=== PATIENT | female | born 1955 | race Caucasian/White ===

== ENCOUNTER 2019-04-08 09:14 | Inpatient (IN) | payer MEDICAID ==
[~2019-04-08] VITALS: Ht 167.6 cm; Wt 98.0 kg
[2019-04-08] VITALS (14 sets, daily range): BP systolic 67–158
[2019-04-08] MEDS ORDERED: cefTRIAXone 1 GM IVPB PREMIX 50 ML IV ONE (09:30)
[2019-04-08 10:07] LABS: BASOPHILS # (AUTO) 0.1 K/uL (0.0-0.2); BASOPHILS % (AUTO) 1.1 % (0.0-2.0); EOSINOPHILS # (AUTO) 0.3 K/uL (0.0-0.4); EOSINOPHILS % (AUTO) 4.3 % (0.0-4.0); HEMATOCRIT 31.1 % (36-48); LYMPHOCYTES # (AUTO) 2.1 K/uL (1.0-5.5); LYMPHOCYTES % (AUTO) 30.1 % (20.5-51.5); MEAN CORPUSCULAR HEMOGLOBIN 29 pg (27-31); MEAN CORPUSCULAR HGB CONC 32 % (32-36); MEAN CORPUSCULAR VOLUME 90 fL (79.0-98.0); MONOCYTES # (AUTO) 0.6 K/uL (0.0-1.0); MONOCYTES % (AUTO) 9.1 % (1.7-9.3); NEUTROPHILS # (AUTO) 3.8 K/uL (1.8-7.7); NEUTROPHILS % (AUTO) 55.4 % (40.0-70.0); PLATELET COUNT (AUTO) 142 K/uL (130-430); RED BLOOD CELL COUNT(AUTO) 3.46 MIL/uL (4.2-6.2); RED CELL DISTRIBUTION WIDTH 18.5 % (9.0-15.0); WHITE BLOOD COUNT (AUTO) 6.9 K/uL (4.8-10.8)
[2019-04-08 10:26] LABS: INR 1.1 (0.8-1.2); PROTHROMBIN TIME 11.3 SECS (9.5-12.5)
[2019-04-08 10:28] LABS: ALANINE AMINOTRANSFERASE 57 U/L (12-78); ALBUMIN 2.5 g/dL (3.4-4.8); AMYLASE 51 U/L (0-100); ANION GAP 4 (5-15); ASPARTATE AMINOTRANSFERASE 45 U/L (10-37); CALCIUM 8.4 mg/dL (8.4-11.0); CHLORIDE 107 mmol/L (98-107); GLUCOSE 190 mg/dL (70-99); LIPASE 127 U/L (73-393); SODIUM SERUM 136 mmol/L (136-145); TOTAL BILIRUBIN 0.4 mg/dL (0.0-1.0)
[2019-04-08 10:41] LABS: UREA NITROGEN, BLOOD 47 mg/dL (8-21)
[2019-04-08 10:44] LABS: GFR AFRICAN AMERICAN 36 mL/min (>90)
[2019-04-08 10:45] LABS: ALCOHOL, BLOOD < 3 mg/dL (<10)
[2019-04-08 10:46] LABS: POTASSIUM 7.2 mmol/L (3.5-5.1)
[2019-04-08 10:53] LABS: ACETAMINOPHEN < 1 ug/mL (1-30)
[2019-04-08] MEDS ORDERED: NACL 0.9% 1,000 ML IV ONE ×2 (11:30→13:00)
[2019-04-08 11:38] LABS: BILIRUBIN,URINE NEGATIVE (NEGATIVE); CLARITY/URINE CLEAR (CLEAR); COLOR,URINE YELLOW (YELLOW); GLUCOSE,URINE TRACE (NEGATIVE); KETONES,URINE NEGATIVE (NEGATIVE); LEUKOCYTE ESTERASE ,URINE NEGATIVE (NEGATIVE); NITRITE, URINE NEGATIVE (NEGATIVE); PH,URINE 6.5 (5.0-8.0); PROTEIN URINE TRACE (NEGATIVE); UROBILINOGEN,URINE 0.2 (0.2-1.0)
[2019-04-08 11:47] LABS: BARBITURATE, URINE NEGATIVE (NEG <=200); BENZODIAZEPINE, URINE NEGATIVE (NEG <=150); CANNABINOID, URINE POSITIVE (NEG <=50); COCAINE, URINE NEGATIVE (NEG <=150); METHAMPHETAMINES SCREEN,URINE NEGATIVE (NEG <=500); OPIATE, URINE NEGATIVE (NEG <=100); PHENCYCLIDINE SCREEN,URINE NEGATIVE (NEG <=25); UR TRICYCLIC ANTIDEPRESSANTS NEGATIVE (NEG <=300); URINE AMPHETAMINE NEGATIVE (NEG <=500); URINE METHADONE NEGATIVE (NEG <=200); URINE OXYCODONE SCREEN NEGATIVE (NEG <=100); URINE PROPOXYPHENE SCREEN NEGATIVE (NEG <=300)
[2019-04-08 11:59] LABS: BLOOD, URINE TRACE (NEGATIVE)
[2019-04-08] MEDS ORDERED: LACTULOSE 20 GM/30 ML UDC PO ONE (12:00)
[2019-04-08 13:07] LABS: BACTERIA,URINE RARE /HPF (None Seen); MUCUS,URINE 1+ /LPF (None Seen); RBC,URINE 0-3 /HPF (0-3); WBC,URINE 0-3 /HPF (0-3)
[2019-04-08] MEDS ORDERED: LACT10SO6 PO (13:18)
[2019-04-08] MEDS ORDERED: RIFA550T5 PO (13:18)
[2019-04-08] MEDS ORDERED: BISA10SU61 RC (13:18)
[2019-04-08] MEDS ORDERED: SODI650T PO (13:18)
[2019-04-08] MEDS ORDERED: ACET325T53 PO (13:18)
[2019-04-08] MEDS ORDERED: MULT-1089 PO (13:18)
[2019-04-08] MEDS ORDERED: SENN8.6T19 PO (13:18)
[2019-04-08] MEDS ORDERED: DEXT30DR6 EACH EYE (13:18)
[2019-04-08] MEDS ORDERED: SSNOVOLOG SUBCUT (13:18)
[2019-04-08] MEDS ORDERED: ASCO500T20 PO (13:18)
[2019-04-08] MEDS ORDERED: PROSTAT PO (13:18)
[2019-04-08] MEDS ORDERED: HYDR-4272 PO (13:18)
[2019-04-08] MEDS ORDERED: ONDA4TAB5 PO (13:18)
[2019-04-08] MEDS ORDERED: LEVO112T2 PO (13:18)
[2019-04-08] MEDS ORDERED: METO-290 PO (13:18)
[2019-04-08] MEDS ORDERED: MOM PO (13:18)
[2019-04-08] MEDS ORDERED: FLEETMO RC (13:18)
[2019-04-08] MEDS ORDERED: NIAC500T2 PO (13:18)
[2019-04-08] MEDS ORDERED: HYDR-4274 PO (13:18)
[2019-04-08] MEDS ORDERED: FAMO20TA8 PO (13:18)
[2019-04-08] MEDS ORDERED: IPRA4AER INH (13:18)
[2019-04-08] MEDS ORDERED: GABA800T PO (13:18)
[2019-04-08] MEDS ORDERED: DOCU-144 PO (13:18)
[2019-04-08] MEDS ORDERED: NOREPINEPHRINE BITARTRATE 4 MG in D5W 246 ML IV PRN (13:30)
[2019-04-08] MEDS ORDERED: NOREPINEPHRINE 4 MG/4 ML VIAL IV ONE (13:39)
[2019-04-08] MEDS ORDERED: BISACODYL 10 MG/SUPPOSITORY RC PRN (14:45)
[2019-04-08] MEDS ORDERED: MINERAL OIL 133 ML ENEMA RC SCH (14:45)
[2019-04-08] MEDS ORDERED: ONDANSETRON HCL 4 MG/2 ML VIAL IVP PRN (15:00)
[2019-04-08] MEDS ORDERED: ALBUTEROL SULFATE 0.083% 2.5 MG/3 ML VIAL.NEB INH PRN (15:00)
[2019-04-08] MEDS ORDERED: SODIUM POLYSTYRENE SULFONATE 15 GM/60 ML UDBTL RC ONE (15:00)
[2019-04-08] MEDS ORDERED: MORPHINE 4 MG/ML INJ. SYRINGE IVP PRN (15:00)
[2019-04-08] MEDS ORDERED: MORPHINE 2 MG/ML INJ. SYRINGE IVP PRN (15:00)
[2019-04-08 16:43] LABS: CALCIUM 8.2 mg/dL (8.4-11.0); CREATININE 1.58 mg/dL (0.55-1.30)
[2019-04-08 16:55] LABS: POTASSIUM 6.3 mmol/L (3.5-5.1)
[2019-04-08] MEDS: D5/0.45 NS 1,000 ML IV SCH (17:03)
[2019-04-08] MEDS: LORazepam 2 MG/ML VIAL IVP PRN (17:03)
[2019-04-08] MEDS: INSULIN REGULAR, HUMAN 100 UNITS/ML, 10 ML VIAL (humuLIN R) SUBCUT PRN (17:50)
[2019-04-08] MEDS: IPRATROPIUM BROM 0.5 MG/2.5 ML VIAL.NEB (ATROVENT) INH SCH ×2 (19:40→23:10)
[2019-04-08] MEDS: FAMOTIDINE PF 20 MG/2 ML VIAL IVP SCH (20:53)
[2019-04-08] MEDS ORDERED: FUROSEMIDE 20 MG/2 ML VIAL IVP SCH (21:00)
[2019-04-09] VITALS (15 sets, daily range): BP systolic 92–153
[2019-04-09] MEDS: D5/0.45 NS 1,000 ML IV SCH ×2 (00:48→23:21)
[2019-04-09] MEDS: INSULIN REGULAR, HUMAN 100 UNITS/ML, 10 ML VIAL (humuLIN R) SUBCUT PRN ×5 (00:51→23:19)
[2019-04-09] MEDS: IPRATROPIUM BROM 0.5 MG/2.5 ML VIAL.NEB (ATROVENT) INH SCH ×6 (02:50→23:00)
[2019-04-09 06:34] LABS: BASOPHILS % (AUTO) 0.6 % (0.0-2.0); EOSINOPHILS # (AUTO) 0.3 K/uL (0.0-0.4); EOSINOPHILS % (AUTO) 5.8 % (0.0-4.0); HEMATOCRIT 28.3 % (36-48); HEMOGLOBIN 9.4 g/dL (12.0-16.0); LYMPHOCYTES # (AUTO) 1.1 K/uL (1.0-5.5); LYMPHOCYTES % (AUTO) 21.1 % (20.5-51.5); MEAN CORPUSCULAR HEMOGLOBIN 30 pg (27-31); MEAN CORPUSCULAR HGB CONC 33 % (32-36); MEAN CORPUSCULAR VOLUME 90 fL (79.0-98.0); MONOCYTES # (AUTO) 0.4 K/uL (0.0-1.0); MONOCYTES % (AUTO) 7.9 % (1.7-9.3); NEUTROPHILS # (AUTO) 3.4 K/uL (1.8-7.7); NEUTROPHILS % (AUTO) 64.6 % (40.0-70.0); PLATELET COUNT (AUTO) 118 K/uL (130-430); RED BLOOD CELL COUNT(AUTO) 3.16 MIL/uL (4.2-6.2); RED CELL DISTRIBUTION WIDTH 18.3 % (9.0-15.0); WHITE BLOOD COUNT (AUTO) 5.3 K/uL (4.8-10.8)
[2019-04-09 06:47] LABS: ALBUMIN 2.6 g/dL (3.4-4.8); CREATININE 1.22 mg/dL (0.55-1.30); PHOSPHORUS 4.9 mg/dL (2.7-4.5); POTASSIUM 5.1 mmol/L (3.5-5.1); TOTAL BILIRUBIN 0.5 mg/dL (0.0-1.0)
[2019-04-09] MEDS: FAMOTIDINE PF 20 MG/2 ML VIAL IVP SCH ×2 (08:32→20:02)
[2019-04-09] MEDS: LACTULOSE 20 GM/30 ML UDC PO SCH ×2 (09:10→20:02)
[2019-04-09] MEDS: cefTRIAXone 1 GM IVPB PREMIX 50 ML IV SCH (09:10)
[2019-04-10 01:46] VITALS: BP_SYST 158
[2019-04-10] MEDS: IPRATROPIUM BROM 0.5 MG/2.5 ML VIAL.NEB (ATROVENT) INH SCH ×4 (03:00→16:36)
[2019-04-10] MEDS: LORazepam 2 MG/ML VIAL IVP PRN ×2 (04:51→12:09)
[2019-04-10] MEDS: D5/0.45 NS 1,000 ML IV SCH ×2 (05:15→18:22)
[2019-04-10 05:40] VITALS: BP_SYST 138
[2019-04-10] MEDS: INSULIN REGULAR, HUMAN 100 UNITS/ML, 10 ML VIAL (humuLIN R) SUBCUT PRN ×4 (05:43→23:32)
[2019-04-10 06:26] LABS: BASOPHILS % (AUTO) 0.5 % (0.0-2.0); EOSINOPHILS # (AUTO) 0.3 K/uL (0.0-0.4); EOSINOPHILS % (AUTO) 5.7 % (0.0-4.0); HEMATOCRIT 29.1 % (36-48); HEMOGLOBIN 9.5 g/dL (12.0-16.0); LYMPHOCYTES # (AUTO) 1.2 K/uL (1.0-5.5); LYMPHOCYTES % (AUTO) 21.1 % (20.5-51.5); MEAN CORPUSCULAR HEMOGLOBIN 29 pg (27-31); MEAN CORPUSCULAR HGB CONC 33 % (32-36); MEAN CORPUSCULAR VOLUME 89 fL (79.0-98.0); MONOCYTES # (AUTO) 0.4 K/uL (0.0-1.0); MONOCYTES % (AUTO) 7.4 % (1.7-9.3); NEUTROPHILS # (AUTO) 3.8 K/uL (1.8-7.7); NEUTROPHILS % (AUTO) 65.3 % (40.0-70.0); PLATELET COUNT (AUTO) 113 K/uL (130-430); RED BLOOD CELL COUNT(AUTO) 3.29 MIL/uL (4.2-6.2); RED CELL DISTRIBUTION WIDTH 18.4 % (9.0-15.0); WHITE BLOOD COUNT (AUTO) 5.8 K/uL (4.8-10.8)
[2019-04-10 06:31] LABS: CALCIUM 8.2 mg/dL (8.4-11.0); CREATININE 1.2 mg/dL (0.55-1.30); POTASSIUM 4.7 mmol/L (3.5-5.1)
[2019-04-10 07:11] LABS: PHOSPHORUS 2.8 mg/dL (2.7-4.5)
[2019-04-10 07:35] LABS: ERYTHROCYTE SEDIMENTATION RATE 79 MM/HR (0-20)
[2019-04-10] MEDS: FAMOTIDINE PF 20 MG/2 ML VIAL IVP SCH ×2 (09:58→21:02)
[2019-04-10] MEDS: LACTULOSE 20 GM/30 ML UDC PO SCH ×2 (09:58→21:02)
[2019-04-10] MEDS: cefTRIAXone 1 GM IVPB PREMIX 50 ML IV SCH (09:58)
[2019-04-10 12:24] VITALS: BP_SYST 129
[2019-04-10 16:54] VITALS: BP_SYST 119
[2019-04-10] MEDS: IPRATROPIUM/ALBUTEROL SULFATE 3 ML AMPUL.NEB (DUONEB) INH SCH (20:58)
[2019-04-10 21:00] VITALS: BP_SYST 143
[2019-04-11 00:18] VITALS: BP_SYST 147
[2019-04-11] MEDS: IPRATROPIUM/ALBUTEROL SULFATE 3 ML AMPUL.NEB (DUONEB) INH SCH ×6 (02:57→20:48)
[2019-04-11] MEDS: INSULIN REGULAR, HUMAN 100 UNITS/ML, 10 ML VIAL (humuLIN R) SUBCUT PRN ×4 (05:18→23:35)
[2019-04-11 08:00] VITALS: BP_SYST 133
[2019-04-11] MEDS: cefTRIAXone 1 GM IVPB PREMIX 50 ML IV SCH (08:41)
[2019-04-11] MEDS: FAMOTIDINE PF 20 MG/2 ML VIAL IVP SCH ×2 (08:41→20:54)
[2019-04-11] MEDS: LACTULOSE 20 GM/30 ML UDC PO SCH ×3 (08:42→20:54)
[2019-04-11 09:29] LABS: BASOPHILS % (AUTO) 0.8 % (0.0-2.0); EOSINOPHILS # (AUTO) 0.3 K/uL (0.0-0.4); EOSINOPHILS % (AUTO) 5.7 % (0.0-4.0); HEMATOCRIT 30.2 % (36-48); HEMOGLOBIN 9.8 g/dL (12.0-16.0); LYMPHOCYTES # (AUTO) 1.4 K/uL (1.0-5.5); LYMPHOCYTES % (AUTO) 29.7 % (20.5-51.5); MEAN CORPUSCULAR HEMOGLOBIN 29 pg (27-31); MEAN CORPUSCULAR HGB CONC 33 % (32-36); MEAN CORPUSCULAR VOLUME 88 fL (79.0-98.0); MONOCYTES # (AUTO) 0.4 K/uL (0.0-1.0); MONOCYTES % (AUTO) 9.1 % (1.7-9.3); NEUTROPHILS # (AUTO) 2.6 K/uL (1.8-7.7); NEUTROPHILS % (AUTO) 54.7 % (40.0-70.0); PLATELET COUNT (AUTO) 118 K/uL (130-430); RED BLOOD CELL COUNT(AUTO) 3.44 MIL/uL (4.2-6.2); RED CELL DISTRIBUTION WIDTH 18.5 % (9.0-15.0); WHITE BLOOD COUNT (AUTO) 4.8 K/uL (4.8-10.8)
[2019-04-11 09:43] LABS: C-REACTIVE PROTEIN QUANT 2.5 mg/dL (0-0.5); CALCIUM 8.4 mg/dL (8.4-11.0); CREATININE 0.86 mg/dL (0.55-1.30); PHOSPHORUS 3.5 mg/dL (2.7-4.5); POTASSIUM 4.3 mmol/L (3.5-5.1)
[2019-04-11 10:31] LABS: ERYTHROCYTE SEDIMENTATION RATE 80 MM/HR (0-20)
[2019-04-11 12:40] VITALS: BP_SYST 147
[2019-04-11 16:23] VITALS: BP_SYST 132
[2019-04-11 20:00] VITALS: BP_SYST 151
[2019-04-11] MEDS: D5/0.45 NS 1,000 ML IV SCH (21:15)
[2019-04-12 00:20] VITALS: BP_SYST 150
[2019-04-12] MEDS: IPRATROPIUM/ALBUTEROL SULFATE 3 ML AMPUL.NEB (DUONEB) INH SCH ×6 (00:22→23:14)
[2019-04-12] MEDS: INSULIN REGULAR, HUMAN 100 UNITS/ML, 10 ML VIAL (humuLIN R) SUBCUT PRN ×3 (06:08→17:29)
[2019-04-12 08:05] VITALS: BP_SYST 127
[2019-04-12] MEDS: LACTULOSE 20 GM/30 ML UDC PO SCH ×2 (08:30→21:00)
[2019-04-12] MEDS: FAMOTIDINE PF 20 MG/2 ML VIAL IVP SCH ×2 (08:30→21:22)
[2019-04-12] MEDS: cefTRIAXone 1 GM IVPB PREMIX 50 ML IV SCH (08:30)
[2019-04-12] MEDS ORDERED: D5W 1,000 ML IV PRN (11:15)
[2019-04-12] MEDS ORDERED: GLUCOSE 15 GM GEL (in 37.5 GM TUBE) PO PRN (11:15)
[2019-04-12] MEDS ORDERED: DEXTROSE 50%-WATER 50 ML DISP.SYRIN IVP PRN (11:15)
[2019-04-12 12:37] VITALS: BP_SYST 143
[2019-04-12 16:35] VITALS: BP_SYST 138
[2019-04-12] MEDS: D5/0.45 NS 1,000 ML IV SCH (17:15)
[2019-04-12 20:00] VITALS: BP_SYST 144
[2019-04-12 23:25] VITALS: BP_SYST 125
[2019-04-13] MEDS: INSULIN REGULAR, HUMAN 100 UNITS/ML, 10 ML VIAL (humuLIN R) SUBCUT PRN ×3 (00:05→12:17)
[2019-04-13] MEDS: IPRATROPIUM/ALBUTEROL SULFATE 3 ML AMPUL.NEB (DUONEB) INH SCH ×3 (03:00→11:00)
[2019-04-13 06:47] LABS: BASOPHILS % (AUTO) 0.6 % (0.0-2.0); EOSINOPHILS # (AUTO) 0.3 K/uL (0.0-0.4); EOSINOPHILS % (AUTO) 5.7 % (0.0-4.0); HEMATOCRIT 29.7 % (36-48); HEMOGLOBIN 9.7 g/dL (12.0-16.0); LYMPHOCYTES # (AUTO) 1.7 K/uL (1.0-5.5); LYMPHOCYTES % (AUTO) 32.5 % (20.5-51.5); MEAN CORPUSCULAR HEMOGLOBIN 29 pg (27-31); MEAN CORPUSCULAR HGB CONC 33 % (32-36); MEAN CORPUSCULAR VOLUME 88 fL (79.0-98.0); MONOCYTES # (AUTO) 0.6 K/uL (0.0-1.0); MONOCYTES % (AUTO) 11.5 % (1.7-9.3); NEUTROPHILS # (AUTO) 2.6 K/uL (1.8-7.7); NEUTROPHILS % (AUTO) 49.7 % (40.0-70.0); PLATELET COUNT (AUTO) 120 K/uL (130-430); RED BLOOD CELL COUNT(AUTO) 3.39 MIL/uL (4.2-6.2); WHITE BLOOD COUNT (AUTO) 5.2 K/uL (4.8-10.8)
[2019-04-13 07:02] LABS: ALBUMIN 2.6 g/dL (3.4-4.8); CALCIUM 8.2 mg/dL (8.4-11.0); CREATININE 0.93 mg/dL (0.55-1.30); TOTAL BILIRUBIN 0.4 mg/dL (0.0-1.0)
[2019-04-13 08:10] VITALS: BP_SYST 141
[2019-04-13] MEDS: cefTRIAXone 1 GM IVPB PREMIX 50 ML IV SCH (08:25)
[2019-04-13] MEDS: FAMOTIDINE PF 20 MG/2 ML VIAL IVP SCH (08:25)
[2019-04-13] MEDS: LACTULOSE 20 GM/30 ML UDC PO SCH (08:25)
[2019-04-13 11:56] VITALS: BP_SYST 110
== END 2019-04-13 14:00 | DRG 279 ==
LOC: SED 09:14 → SIC 12:57 → STU 04-09 11:23
PROVIDERS: ADMIT Preventive Medicine Preventive Medicine/Occupational Environmental Medicine; ATTEND Preventive Medicine Preventive Medicine/Occupational Environmental Medicine
DX: K72.90 Hepatic failure, unspecified without coma (principal); J96.01 Acute respiratory failure with hypoxia; G93.41 Metabolic encephalopathy; E11.21 Type 2 diabetes mellitus with diabetic nephropathy; N17.9 Acute kidney failure, unspecified; D69.6 Thrombocytopenia, unspecified; E11.22 Type 2 diabetes mellitus with diabetic chronic kidney disease; E11.65 Type 2 diabetes mellitus with hyperglycemia; E87.2 Acidosis; E86.0 Dehydration; D64.9 Anemia, unspecified; E03.9 Hypothyroidism, unspecified; J98.11 Atelectasis; K70.30 Alcoholic cirrhosis of liver without ascites; E83.52 Hypercalcemia; E87.1 Hypo-osmolality and hyponatremia; E87.5 Hyperkalemia; E88.09 Other disorders of plasma-protein metabolism, not elsewhere classified; M19.90 Unspecified osteoarthritis, unspecified site; F10.10 Alcohol abuse, uncomplicated; E66.01 Morbid (severe) obesity due to excess calories; I12.9 Hypertensive chronic kidney disease with stage 1 through stage 4 chronic kidney disease, or unspecified chronic kidney disease; N18.9 Chronic kidney disease, unspecified; Z66 Do not resuscitate; Z82.49 Family history of ischemic heart disease and other diseases of the circulatory system; Z83.3 Family history of diabetes mellitus; Z85.038 Personal history of other malignant neoplasm of large intestine; Z85.05 Personal history of malignant neoplasm of liver; Z90.49 Acquired absence of other specified parts of digestive tract; Z68.34 Body mass index [BMI] 34.0-34.9, adult; Z79.899 Other long term (current) drug therapy
CPT/HCPCS: 36415; 36600; 70450-TC; 71045; 80048; 80053; 80307; 81000-TC; 82140-TC; 82150-TC; 82550-TC; 82803-TC; 82962; 83605; 83690-TC; 83735-TC; 83880; 84100-TC; 84484; 85025; 85610-TC; 85651-TC; 85730-TC; 86140; 87040-TC; 87081; 93005; 94640; 94760; 96365; 96367; 97110-GP; 97112-GP; 97530-GP; 99291; 99292; G0378; G0480; G0481; G0482; J0696; J1815; J1940; J2060; J2270; J3490; J7030; J7613; J7620

== ENCOUNTER 2019-08-03 21:23 | Inpatient (IN) | payer MEDICAID, SELFPAY ==
[~2019-08-03] VITALS: Ht 157.5 cm; Wt 89.8 kg
[~2019-08-03 21:23] MED LIST: ACET325T53 PO; ASCO500T20 PO; BISA10SU61 RC; DEXT30DR6 EACH EYE; DOCU-144 PO; FAMO20TA8 PO; FLEETMO RC; GABA800T PO; HYDR-4272 PO; HYDR-4274 PO; IPRA4AER INH; LACT10SO6 PO; LEVO112T2 PO; METO-290 PO; MOM PO; MULT-1089 PO; NIAC500T2 PO; ONDA4TAB5 PO; PROSTAT PO; RIFA550T5 PO; SENN8.6T19 PO; SODI650T PO; SSNOVOLOG SUBCUT
[2019-08-03 21:30] VITALS: BP_SYST 151
[2019-08-03] MEDS ORDERED: ACETAMINOPHEN 650 MG SUPP.RECT RC ONE (21:30)
[2019-08-03 22:30] LABS: BILIRUBIN,URINE NEGATIVE (NEGATIVE); BLOOD, URINE 2+ (NEGATIVE); CLARITY/URINE CLEAR (CLEAR); COLOR,URINE YELLOW (YELLOW); GLUCOSE,URINE NEGATIVE (NEGATIVE); KETONES,URINE NEGATIVE (NEGATIVE); LEUKOCYTE ESTERASE ,URINE 3+ (NEGATIVE); NITRITE, URINE POSITIVE (NEGATIVE); PROTEIN URINE 1+ (NEGATIVE); UROBILINOGEN,URINE 0.2 (0.2-1.0)
[2019-08-03 22:35] LABS: BACTERIA,URINE MANY /HPF (None Seen); MUCUS,URINE 1+ /LPF (None Seen); RBC,URINE 20-50 /HPF (0-3); WBC,URINE >100 /HPF (0-3)
[2019-08-03 22:41] LABS: BASOPHILS % (AUTO) 0.3 % (0.0-2.0); EOSINOPHILS # (AUTO) 0.1 K/uL (0.0-0.4); EOSINOPHILS % (AUTO) 2.3 % (0.0-4.0); HEMATOCRIT 29.4 % (36-48); HEMOGLOBIN 9.4 g/dL (12.0-16.0); LYMPHOCYTES # (AUTO) 0.4 K/uL (1.0-5.5); LYMPHOCYTES % (AUTO) 7.5 % (20.5-51.5); MEAN CORPUSCULAR HEMOGLOBIN 28 pg (27-31); MEAN CORPUSCULAR HGB CONC 32 % (32-36); MEAN CORPUSCULAR VOLUME 87 fL (79.0-98.0); MONOCYTES # (AUTO) 0.5 K/uL (0.0-1.0); MONOCYTES % (AUTO) 9.7 % (1.7-9.3); NEUTROPHILS # (AUTO) 4.3 K/uL (1.8-7.7); NEUTROPHILS % (AUTO) 80.2 % (40.0-70.0); PLATELET COUNT (AUTO) 105 K/uL (130-430); RED BLOOD CELL COUNT(AUTO) 3.39 MIL/uL (4.2-6.2); RED CELL DISTRIBUTION WIDTH 18.1 % (9.0-15.0); WHITE BLOOD COUNT (AUTO) 5.4 K/uL (4.8-10.8)
[2019-08-03 22:49] LABS: CALCIUM 8.3 mg/dL (8.4-11.0); CREATININE 1.44 mg/dL (0.55-1.30); POTASSIUM 5.6 mmol/L (3.5-5.1)
[2019-08-03 22:55] LABS: ALBUMIN 2.7 g/dL (3.4-4.8); TOTAL BILIRUBIN 0.5 mg/dL (0.0-1.0)
[2019-08-03] MEDS ORDERED: cefTRIAXone 1 GM IVPB PREMIX 50 ML IV ONE (23:00)
[2019-08-03 23:14] LABS: INR 1.2 (0.8-1.2); PROTHROMBIN TIME 12.3 SECS (9.5-12.5)
[2019-08-03] MEDS ORDERED: INSULIN REGULAR, HUMAN 10 UNITS/0.1 ML INJ IVP ONE (23:15)
[2019-08-03] MEDS ORDERED: NACL 0.9% 2,000 ML IV ONE (23:15)
[2019-08-04] MEDS ORDERED: LACTULOSE 20 GM/30 ML UDC NG ONE
[2019-08-04] MEDS ORDERED: ONDANSETRON HCL 4 MG/2 ML VIAL IVP ONE
[2019-08-04] MEDS ORDERED: LACT10SO7 PO (00:30)
[2019-08-04] MEDS ORDERED: IPRA4AER INH (00:30)
[2019-08-04] MEDS ORDERED: LEVO125T PO (00:30)
[2019-08-04] MEDS ORDERED: DIPH25CA83 PO (00:30)
[2019-08-04] MEDS ORDERED: INSU100V11 SQ (00:30)
[2019-08-04] MEDS ORDERED: MILK OF MAGNESIA 30 ML UDC PO PRN (01:15)
[2019-08-04] MEDS ORDERED: PEG 400/HYPROMELLOSE/GLYCERIN 15 ML DROPS OP PRN (01:15)
[2019-08-04] MEDS ORDERED: BISACODYL 10 MG/SUPPOSITORY RC PRN (01:15)
[2019-08-04 02:21] VITALS: BP_SYST 107
[2019-08-04] MEDS: LACTULOSE 20 GM/30 ML UDC PO SCH ×4 (02:30→21:31)
[2019-08-04] MEDS: NACL 0.9% 1,000 ML IV SCH ×3 (02:30→21:33)
[2019-08-04] MEDS: PIPERACILLIN/TAZO 3.375/DEX-IS 50 ML IV SCH ×4 (04:05→18:03)
[2019-08-04] MEDS ORDERED: PIPERACILLIN/TAZOBACTAM 3.375 GM/VIAL (ZOSYN) IV ONE (04:13)
[2019-08-04] MEDS ORDERED: AZITHROMYCIN 500 MG/VIAL (ZITHROMAX) IV ONE (04:13)
[2019-08-04] MEDS: ACETAMINOPHEN 325 MG TABLET PO PRN ×4 (04:23→16:35)
[2019-08-04] MEDS: AZITHROMYCIN 500 MG in NS 250 ML IV SCH (04:35)
[2019-08-04 06:23] LABS: BASOPHILS % (AUTO) 0.3 % (0.0-2.0); EOSINOPHILS % (AUTO) 0.8 % (0.0-4.0); HEMATOCRIT 22.9 % (36-48); HEMOGLOBIN 7.4 g/dL (12.0-16.0); LYMPHOCYTES # (AUTO) 0.7 K/uL (1.0-5.5); LYMPHOCYTES % (AUTO) 13.7 % (20.5-51.5); MEAN CORPUSCULAR HEMOGLOBIN 28 pg (27-31); MEAN CORPUSCULAR HGB CONC 32 % (32-36); MEAN CORPUSCULAR VOLUME 87 fL (79.0-98.0); MONOCYTES # (AUTO) 0.6 K/uL (0.0-1.0); MONOCYTES % (AUTO) 11.5 % (1.7-9.3); NEUTROPHILS # (AUTO) 3.9 K/uL (1.8-7.7); NEUTROPHILS % (AUTO) 73.7 % (40.0-70.0); PLATELET COUNT (AUTO) 88 K/uL (130-430); RED BLOOD CELL COUNT(AUTO) 2.63 MIL/uL (4.2-6.2); RED CELL DISTRIBUTION WIDTH 18.3 % (9.0-15.0); WHITE BLOOD COUNT (AUTO) 5.4 K/uL (4.8-10.8)
[2019-08-04] MEDS: LEVOTHYROXINE SODIUM 0.15 MG TABLET PO SCH (06:26)
[2019-08-04] MEDS: INSULIN REGULAR, HUMAN 100 UNITS/ML, 10 ML VIAL (humuLIN R) SUBCUT PRN ×4 (06:44→21:34)
[2019-08-04 06:57] LABS: ALBUMIN 2.2 g/dL (3.4-4.8); CALCIUM 7.1 mg/dL (8.4-11.0); CREATININE 1.46 mg/dL (0.55-1.30); POTASSIUM 5.1 mmol/L (3.5-5.1); TOTAL BILIRUBIN 0.5 mg/dL (0.0-1.0)
[2019-08-04 08:00] VITALS: BP_SYST 111
[2019-08-04] MEDS: DOCUSATE SODIUM 100 MG CAPSULE PO SCH (08:19)
[2019-08-04] MEDS: ASCORBIC ACID 500 MG TABLET PO SCH (08:19)
[2019-08-04] MEDS: NIACIN 500 MG CAPSULE.SA PO SCH ×2 (08:19→21:31)
[2019-08-04 12:00] VITALS: BP_SYST 92
[2019-08-04 16:00] VITALS: BP_SYST 103
[2019-08-04 20:00] VITALS: BP_SYST 117
[2019-08-04] MEDS ORDERED: VANCOMYCIN HCL 1 GM/NS PREMIX 250 ML IV ONE (23:00)
[2019-08-05] VITALS: BP_SYST 98
[2019-08-05] MEDS ORDERED: VANCOMYCIN HCL 1000 MG/VIAL IV ONE (00:31)
[2019-08-05] MEDS: PIPERACILLIN/TAZO 3.375/DEX-IS 50 ML IV SCH ×4 (00:52→18:10)
[2019-08-05] MEDS: AZITHROMYCIN 500 MG in NS 250 ML IV SCH (01:15)
[2019-08-05] MEDS: ACETAMINOPHEN 325 MG TABLET PO PRN (01:17)
[2019-08-05] MEDS: NACL 0.9% 1,000 ML IV SCH ×2 (06:38→18:10)
[2019-08-05] MEDS: LEVOTHYROXINE SODIUM 0.15 MG TABLET PO SCH (06:38)
[2019-08-05 08:00] VITALS: BP_SYST 98
[2019-08-05] MEDS: LACTULOSE 20 GM/30 ML UDC PO SCH ×3 (08:19→21:09)
[2019-08-05] MEDS: DOCUSATE SODIUM 100 MG CAPSULE PO SCH (08:19)
[2019-08-05] MEDS: ASCORBIC ACID 500 MG TABLET PO SCH (08:19)
[2019-08-05] MEDS: NIACIN 500 MG CAPSULE.SA PO SCH ×2 (08:22→21:09)
[2019-08-05 12:00] VITALS: BP_SYST 107
[2019-08-05] MEDS: INSULIN REGULAR, HUMAN 100 UNITS/ML, 10 ML VIAL (humuLIN R) SUBCUT PRN ×3 (12:47→21:59)
[2019-08-05] MEDS ORDERED: DEXTROSE 50%-WATER 50 ML DISP.SYRIN IVP PRN (15:45)
[2019-08-05] MEDS ORDERED: GLUCOSE 15 GM GEL (in 37.5 GM TUBE) PO PRN (15:45)
[2019-08-05] MEDS ORDERED: D5W 1,000 ML IV PRN (15:45)
[2019-08-05 16:00] VITALS: BP_SYST 103
[2019-08-05 20:30] VITALS: BP_SYST 131
[2019-08-06 00:30] VITALS: BP_SYST 116
[2019-08-06] MEDS: PIPERACILLIN/TAZO 3.375/DEX-IS 50 ML IV SCH ×5 (00:47→23:12)
[2019-08-06] MEDS: AZITHROMYCIN 500 MG in NS 250 ML IV SCH (00:51)
[2019-08-06] MEDS: NACL 0.9% 1,000 ML IV SCH ×3 (03:01→23:12)
[2019-08-06] MEDS: LEVOTHYROXINE SODIUM 0.15 MG TABLET PO SCH (06:17)
[2019-08-06] MEDS: INSULIN REGULAR, HUMAN 100 UNITS/ML, 10 ML VIAL (humuLIN R) SUBCUT PRN ×4 (06:30→21:25)
[2019-08-06 08:00] VITALS: BP_SYST 117
[2019-08-06] MEDS: LACTULOSE 20 GM/30 ML UDC PO SCH ×3 (09:36→21:09)
[2019-08-06] MEDS: DOCUSATE SODIUM 100 MG CAPSULE PO SCH (09:36)
[2019-08-06] MEDS: NIACIN 500 MG CAPSULE.SA PO SCH ×2 (09:36→21:00)
[2019-08-06] MEDS: ASCORBIC ACID 500 MG TABLET PO SCH (09:36)
[2019-08-06 12:00] VITALS: BP_SYST 122
[2019-08-06] MEDS ORDERED: HYDROXYCHLOROQUINE SULFATE 200 MG TABLET PO ONE (12:30)
[2019-08-06] MEDS ORDERED: IVERMECTIN 3 MG TABLET PO ONE (12:30)
[2019-08-06 16:00] VITALS: BP_SYST 116
[2019-08-06 20:00] VITALS: BP_SYST 126
[2019-08-06] MEDS: HYDROXYCHLOROQUINE SULFATE 200 MG TABLET PO SCH (23:11)
[2019-08-07] VITALS: BP_SYST 105
[2019-08-07] MEDS: ACETAMINOPHEN 325 MG TABLET PO PRN ×2 (00:27→11:30)
[2019-08-07] MEDS: PIPERACILLIN/TAZO 3.375/DEX-IS 50 ML IV SCH ×4 (05:49→19:40)
[2019-08-07] MEDS: LEVOTHYROXINE SODIUM 0.15 MG TABLET PO SCH (07:39)
[2019-08-07] MEDS: INSULIN REGULAR, HUMAN 100 UNITS/ML, 10 ML VIAL (humuLIN R) SUBCUT PRN ×4 (07:40→21:49)
[2019-08-07] MEDS: NIACIN 500 MG CAPSULE.SA PO SCH ×2 (08:09→21:40)
[2019-08-07] MEDS: NACL 0.9% 1,000 ML IV SCH ×2 (08:09→17:59)
[2019-08-07] MEDS: LACTULOSE 20 GM/30 ML UDC PO SCH ×3 (08:09→21:39)
[2019-08-07] MEDS: ASCORBIC ACID 500 MG TABLET PO SCH (08:09)
[2019-08-07] MEDS: DOCUSATE SODIUM 100 MG CAPSULE PO SCH (08:10)
[2019-08-07 08:39] VITALS: BP_SYST 129
[2019-08-07] MEDS: LORazepam 1 MG TABLET PO PRN (10:45)
[2019-08-07] MEDS: HYDROXYCHLOROQUINE SULFATE 200 MG TABLET PO SCH (11:25)
[2019-08-07 11:27] VITALS: BP_SYST 124
[2019-08-07 16:20] VITALS: BP_SYST 120
[2019-08-07] MEDS: CHOLECALCIFEROL (VITAMIN D3) 2,000 UNIT TABLET PO ONE ×2 (17:00→17:59)
[2019-08-07 21:09] VITALS: BP_SYST 154
[2019-08-08] MEDS: PIPERACILLIN/TAZO 3.375/DEX-IS 50 ML IV SCH ×3 (00:17→12:56)
[2019-08-08] MEDS: HYDROXYCHLOROQUINE SULFATE 200 MG TABLET PO SCH ×2 (00:17→12:56)
[2019-08-08 00:30] VITALS: BP_SYST 122
[2019-08-08] MEDS: LEVOTHYROXINE SODIUM 0.15 MG TABLET PO SCH (06:18)
[2019-08-08] MEDS: NACL 0.9% 1,000 ML IV SCH ×2 (06:18→15:01)
[2019-08-08] MEDS: ACETAMINOPHEN 325 MG TABLET PO PRN (06:20)
[2019-08-08] MEDS: INSULIN REGULAR, HUMAN 100 UNITS/ML, 10 ML VIAL (humuLIN R) SUBCUT PRN ×3 (06:39→17:09)
[2019-08-08 09:46] VITALS: BP_SYST 127
[2019-08-08] MEDS: NIACIN 500 MG CAPSULE.SA PO SCH ×2 (09:52→21:00)
[2019-08-08] MEDS: LACTULOSE 20 GM/30 ML UDC PO SCH ×3 (09:52→21:00)
[2019-08-08] MEDS: CHOLECALCIFEROL (VITAMIN D3) 2,000 UNIT TABLET PO SCH (09:52)
[2019-08-08] MEDS: ASCORBIC ACID 500 MG TABLET PO SCH (09:52)
[2019-08-08] MEDS: DOCUSATE SODIUM 100 MG CAPSULE PO SCH (09:52)
[2019-08-08 12:00] VITALS: BP_SYST 153
[2019-08-08 16:22] VITALS: BP_SYST 129
[2019-08-08 19:40] VITALS: BP_SYST 134
[2019-08-09 01:02] VITALS: BP_SYST 115
[2019-08-09] MEDS: NACL 0.9% 1,000 ML IV SCH ×3 (01:30→21:01)
[2019-08-09] MEDS: PIPERACILLIN/TAZO 3.375/DEX-IS 50 ML IV SCH ×5 (06:12→23:58)
[2019-08-09] MEDS: LEVOTHYROXINE SODIUM 0.15 MG TABLET PO SCH (06:12)
[2019-08-09] MEDS: INSULIN REGULAR, HUMAN 100 UNITS/ML, 10 ML VIAL (humuLIN R) SUBCUT PRN ×2 (06:14→12:43)
[2019-08-09 08:00] VITALS: BP_SYST 138
[2019-08-09] MEDS: DOCUSATE SODIUM 100 MG CAPSULE PO SCH (08:15)
[2019-08-09] MEDS: LACTULOSE 20 GM/30 ML UDC PO SCH ×3 (08:15→21:36)
[2019-08-09] MEDS: ASCORBIC ACID 500 MG TABLET PO SCH (08:15)
[2019-08-09] MEDS: NIACIN 500 MG CAPSULE.SA PO SCH ×2 (08:15→21:36)
[2019-08-09] MEDS: CHOLECALCIFEROL (VITAMIN D3) 2,000 UNIT TABLET PO SCH (08:16)
[2019-08-09 12:00] VITALS: BP_SYST 108
[2019-08-09] MEDS: HYDROXYCHLOROQUINE SULFATE 200 MG TABLET PO SCH ×3 (12:05→23:59)
[2019-08-09 16:29] LABS: HEMOGLOBIN 7.8 g/dL (12.0-16.0); MEAN CORPUSCULAR HGB CONC 32 % (32-36); RED BLOOD CELL COUNT(AUTO) 2.85 MIL/uL (4.2-6.2)
[2019-08-09 16:30] LABS: ALBUMIN 2.2 g/dL (3.4-4.8); CALCIUM 7.2 mg/dL (8.4-11.0); POTASSIUM 3.6 mmol/L (3.5-5.1); TOTAL BILIRUBIN 0.4 mg/dL (0.0-1.0)
[2019-08-09 16:36] LABS: HEMATOCRIT 24.4 % (36-48); MEAN CORPUSCULAR HEMOGLOBIN 27 pg (27-31); MEAN CORPUSCULAR VOLUME 86 fL (79.0-98.0); RED CELL DISTRIBUTION WIDTH 18.4 % (9.0-15.0)
[2019-08-09 16:39] LABS: WHITE BLOOD COUNT (AUTO) 2.6 K/uL (4.8-10.8)
[2019-08-09 16:50] LABS: PLATELET COUNT (AUTO) 85 K/uL (130-430)
[2019-08-09 16:52] LABS: BAND % (MANUAL) 1 % (0-6); BASOPHILS % (MANUAL) 0 % (0-2); EOSINOPHILS % (MANUAL) 3 % (0-7); LYMPHOCYTES % (MANUAL) 35 % (20-46); MONOCYTES % (MANUAL) 13 % (0-11)
[2019-08-09 18:18] VITALS: BP_SYST 110
[2019-08-09 20:00] VITALS: BP_SYST 126
[2019-08-09] MEDS: ACETAMINOPHEN 325 MG TABLET PO PRN (21:37)
[2019-08-10] VITALS: BP_SYST 130
[2019-08-10] MEDS: PIPERACILLIN/TAZO 3.375/DEX-IS 50 ML IV SCH (06:52)
[2019-08-10] MEDS: LEVOTHYROXINE SODIUM 0.15 MG TABLET PO SCH (06:52)
[2019-08-10 08:30] VITALS: BP_SYST 128
[2019-08-10] MEDS: LACTULOSE 20 GM/30 ML UDC PO SCH ×3 (08:41→21:00)
[2019-08-10] MEDS: DOCUSATE SODIUM 100 MG CAPSULE PO SCH (08:41)
[2019-08-10] MEDS: ASCORBIC ACID 500 MG TABLET PO SCH (08:41)
[2019-08-10] MEDS: CHOLECALCIFEROL (VITAMIN D3) 2,000 UNIT TABLET PO SCH (08:41)
[2019-08-10] MEDS: LORazepam 1 MG TABLET PO PRN (08:41)
[2019-08-10] MEDS: NIACIN 500 MG CAPSULE.SA PO SCH ×2 (08:41→21:00)
[2019-08-10] MEDS: ERTAPENEM SODIUM 0.5 GM in NS 50 ML IV SCH (11:00)
[2019-08-10 12:00] VITALS: BP_SYST 128
[2019-08-10] MEDS: HYDROXYCHLOROQUINE SULFATE 200 MG TABLET PO SCH (12:00)
[2019-08-10] MEDS: NACL 0.9% 1,000 ML IV SCH ×2 (14:00→17:01)
[2019-08-10 16:00] VITALS: BP_SYST 144
[2019-08-10 21:30] VITALS: BP_SYST 156
[2019-08-11 00:17] VITALS: BP_SYST 116
[2019-08-11] MEDS: NACL 0.9% 1,000 ML IV SCH ×3 (00:24→22:05)
[2019-08-11] MEDS: LEVOTHYROXINE SODIUM 0.15 MG TABLET PO SCH (06:51)
[2019-08-11 08:00] VITALS: BP_SYST 144
[2019-08-11] MEDS: NIACIN 500 MG CAPSULE.SA PO SCH ×2 (09:00→21:34)
[2019-08-11] MEDS: ASCORBIC ACID 500 MG TABLET PO SCH (09:00)
[2019-08-11] MEDS: DOCUSATE SODIUM 100 MG CAPSULE PO SCH (09:00)
[2019-08-11] MEDS: LACTULOSE 20 GM/30 ML UDC PO SCH ×3 (09:00→21:00)
[2019-08-11] MEDS: CHOLECALCIFEROL (VITAMIN D3) 2,000 UNIT TABLET PO SCH (09:00)
[2019-08-11] MEDS: ERTAPENEM SODIUM 0.5 GM in NS 50 ML IV SCH (10:37)
[2019-08-11 12:00] VITALS: BP_SYST 137
[2019-08-11] MEDS: HYDROXYCHLOROQUINE SULFATE 200 MG TABLET PO SCH ×3 (12:00→23:57)
[2019-08-11 13:38] LABS: C-REACTIVE PROTEIN QUANT 7.3 mg/dL (0-0.5)
[2019-08-11 16:00] VITALS: BP_SYST 140
[2019-08-11] MEDS: MENTHOL/ZINC OXIDE 113 GM OINT. TP PRN (18:27)
[2019-08-11] MEDS ORDERED: BALSAM PERU/CASTOR OIL 60 GM OINT...G. TP ONE (18:30)
[2019-08-11 21:35] VITALS: BP_SYST 149
[2019-08-12 00:06] VITALS: BP_SYST 127
[2019-08-12] MEDS: LEVOTHYROXINE SODIUM 0.15 MG TABLET PO SCH (06:26)
[2019-08-12 08:00] VITALS: BP_SYST 144
[2019-08-12] MEDS: LACTULOSE 20 GM/30 ML UDC PO SCH ×3 (09:00→20:44)
[2019-08-12] MEDS: NACL 0.9% 1,000 ML IV SCH ×2 (09:01→16:40)
[2019-08-12] MEDS: NIACIN 500 MG CAPSULE.SA PO SCH ×2 (09:27→20:45)
[2019-08-12] MEDS: DOCUSATE SODIUM 100 MG CAPSULE PO SCH (09:27)
[2019-08-12] MEDS: MENTHOL/ZINC OXIDE 113 GM OINT. TP PRN (09:28)
[2019-08-12] MEDS: BALSAM PERU/CASTOR OIL 60 GM OINT...G. TP SCH (09:28)
[2019-08-12] MEDS: ASCORBIC ACID 500 MG TABLET PO SCH (09:28)
[2019-08-12] MEDS: CHOLECALCIFEROL (VITAMIN D3) 2,000 UNIT TABLET PO SCH (09:28)
[2019-08-12] MEDS: ERTAPENEM SODIUM 0.5 GM in NS 50 ML IV SCH (11:00)
[2019-08-12 12:00] VITALS: BP_SYST 127
[2019-08-12] MEDS: HYDROXYCHLOROQUINE SULFATE 200 MG TABLET PO SCH (12:00)
[2019-08-12 16:00] VITALS: BP_SYST 134
[2019-08-12 20:00] VITALS: BP_SYST 122
[2019-08-13 00:30] VITALS: BP_SYST 144
[2019-08-13] MEDS: HYDROXYCHLOROQUINE SULFATE 200 MG TABLET PO SCH ×2 (00:40→12:00)
[2019-08-13] MEDS: NACL 0.9% 1,000 ML IV SCH ×2 (05:12→16:26)
[2019-08-13] MEDS: LEVOTHYROXINE SODIUM 0.15 MG TABLET PO SCH (07:23)
[2019-08-13] MEDS: DOCUSATE SODIUM 100 MG CAPSULE PO SCH (09:00)
[2019-08-13] MEDS: ASCORBIC ACID 500 MG TABLET PO SCH (09:00)
[2019-08-13] MEDS: BALSAM PERU/CASTOR OIL 60 GM OINT...G. TP SCH (09:00)
[2019-08-13] MEDS: NIACIN 500 MG CAPSULE.SA PO SCH ×2 (09:00→21:57)
[2019-08-13] MEDS: LACTULOSE 20 GM/30 ML UDC PO SCH ×3 (09:00→21:57)
[2019-08-13] MEDS: CHOLECALCIFEROL (VITAMIN D3) 2,000 UNIT TABLET PO SCH (09:00)
[2019-08-13] MEDS: ERTAPENEM SODIUM 0.5 GM in NS 50 ML IV SCH (11:00)
[2019-08-13 12:00] VITALS: BP_SYST 146
[2019-08-13] MEDS ORDERED: ENOXAPARIN SODIUM 30 MG/0.3 ML SYRINGE SUBCUT ONE (12:00)
[2019-08-13 16:00] VITALS: BP_SYST 130
[2019-08-13 20:00] VITALS: BP_SYST 121
[2019-08-14] MEDS: HYDROXYCHLOROQUINE SULFATE 200 MG TABLET PO SCH ×2 (00:30→12:00)
[2019-08-14] MEDS: NACL 0.9% 1,000 ML IV SCH (01:01)
[2019-08-14 07:31] LABS: BASOPHILS % (AUTO) 0.8 % (0.0-2.0); EOSINOPHILS # (AUTO) 0.2 K/uL (0.0-0.4); EOSINOPHILS % (AUTO) 4.1 % (0.0-4.0); HEMATOCRIT 23.2 % (36-48); HEMOGLOBIN 7.7 g/dL (12.0-16.0); LYMPHOCYTES # (AUTO) 1.1 K/uL (1.0-5.5); LYMPHOCYTES % (AUTO) 28.1 % (20.5-51.5); MEAN CORPUSCULAR HEMOGLOBIN 28 pg (27-31); MEAN CORPUSCULAR HGB CONC 33 % (32-36); MEAN CORPUSCULAR VOLUME 84 fL (79.0-98.0); MONOCYTES # (AUTO) 0.5 K/uL (0.0-1.0); MONOCYTES % (AUTO) 11.8 % (1.7-9.3); NEUTROPHILS # (AUTO) 2.1 K/uL (1.8-7.7); NEUTROPHILS % (AUTO) 55.2 % (40.0-70.0); PLATELET COUNT (AUTO) 109 K/uL (130-430); RED BLOOD CELL COUNT(AUTO) 2.76 MIL/uL (4.2-6.2); RED CELL DISTRIBUTION WIDTH 18.6 % (9.0-15.0); WHITE BLOOD COUNT (AUTO) 3.8 K/uL (4.8-10.8)
[2019-08-14] MEDS: LEVOTHYROXINE SODIUM 0.15 MG TABLET PO SCH (07:37)
[2019-08-14 08:00] VITALS: BP_SYST 145
[2019-08-14] MEDS ORDERED: ENOXAPARIN SODIUM 30 MG/0.3 ML SYRINGE SUBCUT SCH (09:00)
[2019-08-14] MEDS: LACTULOSE 20 GM/30 ML UDC PO SCH ×3 (09:00→21:00)
[2019-08-14] MEDS: ASCORBIC ACID 500 MG TABLET PO SCH (09:28)
[2019-08-14] MEDS: CHOLECALCIFEROL (VITAMIN D3) 2,000 UNIT TABLET PO SCH (09:28)
[2019-08-14] MEDS: NIACIN 500 MG CAPSULE.SA PO SCH ×2 (09:28→21:00)
[2019-08-14] MEDS: DOCUSATE SODIUM 100 MG CAPSULE PO SCH (09:28)
[2019-08-14] MEDS: BALSAM PERU/CASTOR OIL 60 GM OINT...G. TP SCH (09:31)
[2019-08-14] MEDS ORDERED: D5NS 1,000 ML IV SCH (10:15)
[2019-08-14 11:06] LABS: CALCIUM 7.3 mg/dL (8.4-11.0); CREATININE 0.86 mg/dL (0.55-1.30)
[2019-08-14 11:11] LABS: ALBUMIN 2.1 g/dL (3.4-4.8); TOTAL BILIRUBIN 0.4 mg/dL (0.0-1.0)
[2019-08-14 12:15] VITALS: BP_SYST 127
[2019-08-14] MEDS: ERTAPENEM SODIUM 0.5 GM in NS 50 ML IV SCH (12:17)
[2019-08-14 16:00] VITALS: BP_SYST 134
[2019-08-14 20:00] VITALS: BP_SYST 117
[2019-08-14] MEDS ORDERED: POTASSIUM CHLORIDE 40 MEQ in NS 250 ML IV ONE (21:00)
[2019-08-14] MEDS ORDERED: KCL 40 mEq in 100 mL (PREMIX) 100 ML IV ONE (21:15)
[2019-08-14] MEDS: KCL 40 mEq in 100 mL (PREMIX) 100 ML IV ONE (21:26)
[2019-08-14] MEDS: KCL 20 mEq in 100 mL (PREMIX) 100 ML IV SCH ×2 (21:30→23:30)
[2019-08-14] MEDS: FUROSEMIDE 40 MG/4 ML VIAL IVP SCH (22:00)
[2019-08-15] VITALS: BP_SYST 121
[2019-08-15] MEDS: INSULIN REGULAR, HUMAN 100 UNITS/ML, 10 ML VIAL (humuLIN R) SUBCUT PRN ×2 (00:29→07:16)
[2019-08-15] MEDS: HYDROXYCHLOROQUINE SULFATE 200 MG TABLET PO SCH ×2 (01:29→12:00)
[2019-08-15] MEDS: LEVOTHYROXINE SODIUM 0.15 MG TABLET PO SCH (07:00)
[2019-08-15 07:04] LABS: INR 1.4 (0.8-1.2); PROTHROMBIN TIME 13.5 SECS (9.5-12.5)
[2019-08-15 07:24] LABS: TOTAL IRON BIND. CAPACITY 217 ug/dL (250-450)
[2019-08-15 07:58] LABS: C-REACTIVE PROTEIN QUANT 9.3 mg/dL (0-0.5)
[2019-08-15 08:00] VITALS: BP_SYST 152
[2019-08-15] MEDS: ENOXAPARIN SODIUM 40 MG/0.4 ML SYRINGE SUBCUT SCH (08:38)
[2019-08-15] MEDS: LACTULOSE 20 GM/30 ML UDC PO SCH ×3 (08:39→21:00)
[2019-08-15] MEDS: NIACIN 500 MG CAPSULE.SA PO SCH ×2 (08:39→21:00)
[2019-08-15] MEDS: ASCORBIC ACID 500 MG TABLET PO SCH (08:39)
[2019-08-15] MEDS: FUROSEMIDE 40 MG/4 ML VIAL IVP SCH ×2 (08:39→22:09)
[2019-08-15] MEDS: DOCUSATE SODIUM 100 MG CAPSULE PO SCH (08:39)
[2019-08-15] MEDS: BALSAM PERU/CASTOR OIL 60 GM OINT...G. TP SCH (08:40)
[2019-08-15] MEDS: CHOLECALCIFEROL (VITAMIN D3) 2,000 UNIT TABLET PO SCH (08:40)
[2019-08-15] MEDS ORDERED: *PPN PER PHARMACY XX PRN (09:15)
[2019-08-15 09:42] LABS: CALCIUM 7.4 mg/dL (8.4-11.0); CREATININE 0.98 mg/dL (0.55-1.30); POTASSIUM 3.6 mmol/L (3.5-5.1)
[2019-08-15 09:46] LABS: ALBUMIN 2.3 g/dL (3.4-4.8); PHOSPHORUS 1.9 mg/dL (2.7-4.5); TOTAL BILIRUBIN 0.4 mg/dL (0.0-1.0)
[2019-08-15] MEDS ORDERED: K PHOS IV ONE (11:00)
[2019-08-15] MEDS ORDERED: MAGNESIUM SULFATE IV ONE (11:00)
[2019-08-15] MEDS ORDERED: NS IV ONE (11:00)
[2019-08-15] MEDS: ERTAPENEM SODIUM 0.5 GM in NS 50 ML IV SCH (12:00)
[2019-08-15 12:51] VITALS: BP_SYST 118
[2019-08-15 16:19] VITALS: BP_SYST 110
[2019-08-15 20:00] VITALS: BP_SYST 119
[2019-08-15] MEDS ORDERED: [UNRECOGNIZED DRUG - OTHER] IV SCH ×10 (21:00)
[2019-08-15] MEDS ORDERED: MAGNESIUM SULFATE IV SCH ×10 (21:00)
[2019-08-15] MEDS ORDERED: TPN PERIPHERAL IV SCH ×10 (21:00)
[2019-08-15] MEDS ORDERED: K PHOS IV SCH ×10 (21:00)
[2019-08-15] MEDS ORDERED: SODIUM ACETATE IV SCH ×10 (21:00)
[2019-08-15] MEDS: FAT EMULSIONS 250 ML IV SCH (22:10)
[2019-08-16] VITALS: BP_SYST 130
[2019-08-16] MEDS: HYDROXYCHLOROQUINE SULFATE 200 MG TABLET PO SCH ×2 (00:28→11:58)
[2019-08-16 06:20] LABS: BASOPHILS % (AUTO) 0.7 % (0.0-2.0); EOSINOPHILS # (AUTO) 0.2 K/uL (0.0-0.4); EOSINOPHILS % (AUTO) 5.6 % (0.0-4.0); HEMATOCRIT 26.2 % (36-48); HEMOGLOBIN 8.6 g/dL (12.0-16.0); LYMPHOCYTES # (AUTO) 1.1 K/uL (1.0-5.5); LYMPHOCYTES % (AUTO) 27.1 % (20.5-51.5); MEAN CORPUSCULAR HEMOGLOBIN 27 pg (27-31); MEAN CORPUSCULAR HGB CONC 33 % (32-36); MEAN CORPUSCULAR VOLUME 83 fL (79.0-98.0); MONOCYTES # (AUTO) 0.4 K/uL (0.0-1.0); MONOCYTES % (AUTO) 10.5 % (1.7-9.3); NEUTROPHILS # (AUTO) 2.2 K/uL (1.8-7.7); NEUTROPHILS % (AUTO) 56.1 % (40.0-70.0); PLATELET COUNT (AUTO) 131 K/uL (130-430); RED BLOOD CELL COUNT(AUTO) 3.16 MIL/uL (4.2-6.2); RED CELL DISTRIBUTION WIDTH 18.7 % (9.0-15.0)
[2019-08-16 06:24] LABS: INR 1.3 (0.8-1.2); PROTHROMBIN TIME 12.7 SECS (9.5-12.5)
[2019-08-16 06:33] LABS: ALBUMIN 2.1 g/dL (3.4-4.8); CALCIUM 7.4 mg/dL (8.4-11.0); CREATININE 1.08 mg/dL (0.55-1.30); PHOSPHORUS 2.7 mg/dL (2.7-4.5); POTASSIUM 3.3 mmol/L (3.5-5.1); TOTAL BILIRUBIN 0.5 mg/dL (0.0-1.0)
[2019-08-16] MEDS: LEVOTHYROXINE SODIUM 0.15 MG TABLET PO SCH (07:00)
[2019-08-16] MEDS: INSULIN REGULAR, HUMAN 100 UNITS/ML, 10 ML VIAL (humuLIN R) SUBCUT PRN ×4 (07:01→21:50)
[2019-08-16 08:00] VITALS: BP_SYST 131
[2019-08-16] MEDS: CHOLECALCIFEROL (VITAMIN D3) 2,000 UNIT TABLET PO SCH (09:00)
[2019-08-16] MEDS: DOCUSATE SODIUM 100 MG CAPSULE PO SCH (09:00)
[2019-08-16] MEDS: LACTULOSE 20 GM/30 ML UDC PO SCH ×3 (09:00→21:50)
[2019-08-16] MEDS: ASCORBIC ACID 500 MG TABLET PO SCH (09:00)
[2019-08-16] MEDS: NIACIN 500 MG CAPSULE.SA PO SCH ×2 (09:00→21:50)
[2019-08-16 09:24] LABS: TOTAL IRON BIND. CAPACITY 176 ug/dL (250-450)
[2019-08-16] MEDS: BALSAM PERU/CASTOR OIL 60 GM OINT...G. TP SCH (09:30)
[2019-08-16] MEDS: FUROSEMIDE 40 MG/4 ML VIAL IVP SCH ×2 (09:31→21:50)
[2019-08-16] MEDS: ENOXAPARIN SODIUM 40 MG/0.4 ML SYRINGE SUBCUT SCH (09:31)
[2019-08-16] MEDS ORDERED: POTASSIUM CHLORIDE 40 MEQ in NS 250 ML IV ONE (10:30)
[2019-08-16] MEDS: ERTAPENEM SODIUM 0.5 GM in NS 50 ML IV SCH (11:58)
[2019-08-16 12:03] VITALS: BP_SYST 117
[2019-08-16 16:00] VITALS: BP_SYST 105
[2019-08-16] MEDS: MENTHOL/ZINC OXIDE 113 GM OINT. TP PRN (17:09)
[2019-08-16 20:00] VITALS: BP_SYST 106
[2019-08-16] MEDS ORDERED: SODIUM CHLORIDE IV SCH ×10 (21:00)
[2019-08-16] MEDS ORDERED: [UNRECOGNIZED DRUG - OTHER] IV SCH ×10 (21:00)
[2019-08-16] MEDS ORDERED: TPN PERIPHERAL IV SCH ×10 (21:00)
[2019-08-16] MEDS ORDERED: K PHOS IV SCH ×10 (21:00)
[2019-08-16] MEDS: FAT EMULSIONS 250 ML IV SCH (21:50)
[2019-08-17] VITALS (8 sets, daily range): BP systolic 77–108
[2019-08-17] MEDS: HYDROXYCHLOROQUINE SULFATE 200 MG TABLET PO SCH
[2019-08-17] MEDS: INSULIN REGULAR, HUMAN 100 UNITS/ML, 10 ML VIAL (humuLIN R) SUBCUT PRN ×5 (06:30→22:23)
[2019-08-17] MEDS: LEVOTHYROXINE SODIUM 0.15 MG TABLET PO SCH (06:30)
[2019-08-17 07:10] LABS: BASOPHILS % (AUTO) 0.9 % (0.0-2.0); EOSINOPHILS # (AUTO) 0.2 K/uL (0.0-0.4); EOSINOPHILS % (AUTO) 4.4 % (0.0-4.0); HEMATOCRIT 26.7 % (36-48); HEMOGLOBIN 8.8 g/dL (12.0-16.0); LYMPHOCYTES # (AUTO) 1.3 K/uL (1.0-5.5); LYMPHOCYTES % (AUTO) 27.6 % (20.5-51.5); MEAN CORPUSCULAR HEMOGLOBIN 27 pg (27-31); MEAN CORPUSCULAR HGB CONC 33 % (32-36); MEAN CORPUSCULAR VOLUME 82 fL (79.0-98.0); MONOCYTES # (AUTO) 0.4 K/uL (0.0-1.0); MONOCYTES % (AUTO) 9.2 % (1.7-9.3); NEUTROPHILS # (AUTO) 2.7 K/uL (1.8-7.7); NEUTROPHILS % (AUTO) 57.9 % (40.0-70.0); PLATELET COUNT (AUTO) 147 K/uL (130-430); RED BLOOD CELL COUNT(AUTO) 3.24 MIL/uL (4.2-6.2); WHITE BLOOD COUNT (AUTO) 4.7 K/uL (4.8-10.8)
[2019-08-17 07:27] LABS: ALBUMIN 2.2 g/dL (3.4-4.8); CALCIUM 7.8 mg/dL (8.4-11.0); CREATININE 1.21 mg/dL (0.55-1.30); PHOSPHORUS 2.2 mg/dL (2.7-4.5); POTASSIUM 3.6 mmol/L (3.5-5.1); TOTAL BILIRUBIN 0.5 mg/dL (0.0-1.0)
[2019-08-17] MEDS: LACTULOSE 20 GM/30 ML UDC PO SCH ×3 (08:16→21:00)
[2019-08-17] MEDS: DOCUSATE SODIUM 100 MG CAPSULE PO SCH ×2 (08:16→09:00)
[2019-08-17] MEDS: ASCORBIC ACID 500 MG TABLET PO SCH ×2 (08:17→09:00)
[2019-08-17] MEDS: NIACIN 500 MG CAPSULE.SA PO SCH ×3 (08:17→21:00)
[2019-08-17] MEDS: ENOXAPARIN SODIUM 40 MG/0.4 ML SYRINGE SUBCUT SCH (08:18)
[2019-08-17] MEDS: CHOLECALCIFEROL (VITAMIN D3) 2,000 UNIT TABLET PO SCH ×2 (08:19→09:00)
[2019-08-17] MEDS: BALSAM PERU/CASTOR OIL 60 GM OINT...G. TP SCH (08:19)
[2019-08-17] MEDS: FUROSEMIDE 40 MG/4 ML VIAL IVP SCH ×2 (09:00→21:00)
[2019-08-17] MEDS ORDERED: NS 500 ML IV ONE (10:00)
[2019-08-17] MEDS ORDERED: IVERMECTIN 3 MG TABLET PO ONE (13:00)
[2019-08-17] MEDS: FAT EMULSIONS 250 ML IV SCH (19:58)
[2019-08-17] MEDS ORDERED: TPN PERIPHERAL IV SCH ×10 (21:00)
[2019-08-17] MEDS ORDERED: SODIUM CHLORIDE IV SCH ×10 (21:00)
[2019-08-17] MEDS ORDERED: POTASSIUM ACETATE IV SCH ×10 (21:00)
[2019-08-17] MEDS ORDERED: [UNRECOGNIZED DRUG - OTHER] IV SCH ×10 (21:00)
[2019-08-18 00:32] VITALS: BP_SYST 100
[2019-08-18] MEDS: INSULIN REGULAR, HUMAN 100 UNITS/ML, 10 ML VIAL (humuLIN R) SUBCUT PRN ×4 (06:29→21:37)
[2019-08-18] MEDS: LEVOTHYROXINE SODIUM 0.15 MG TABLET PO SCH (06:30)
[2019-08-18 07:05] LABS: CALCIUM 7.7 mg/dL (8.4-11.0); CREATININE 0.98 mg/dL (0.55-1.30); PHOSPHORUS 2.2 mg/dL (2.7-4.5); POTASSIUM 4.2 mmol/L (3.5-5.1)
[2019-08-18 08:00] VITALS: BP_SYST 97
[2019-08-18] MEDS: DOCUSATE SODIUM 100 MG CAPSULE PO SCH (08:48)
[2019-08-18] MEDS: FUROSEMIDE 40 MG/4 ML VIAL IVP SCH ×2 (08:48→21:20)
[2019-08-18] MEDS: CHOLECALCIFEROL (VITAMIN D3) 2,000 UNIT TABLET PO SCH (08:49)
[2019-08-18] MEDS: LACTULOSE 20 GM/30 ML UDC PO SCH ×3 (08:49→21:00)
[2019-08-18] MEDS: ASCORBIC ACID 500 MG TABLET PO SCH (08:49)
[2019-08-18] MEDS: NIACIN 500 MG CAPSULE.SA PO SCH ×2 (08:49→21:20)
[2019-08-18] MEDS: ENOXAPARIN SODIUM 40 MG/0.4 ML SYRINGE SUBCUT SCH (08:50)
[2019-08-18] MEDS: BALSAM PERU/CASTOR OIL 60 GM OINT...G. TP SCH (08:50)
[2019-08-18 12:00] VITALS: BP_SYST 107
[2019-08-18 13:56] LABS: BASOPHILS # (AUTO) 0.1 K/uL (0.0-0.2); EOSINOPHILS # (AUTO) 0.2 K/uL (0.0-0.4); HEMATOCRIT 27.5 % (36-48); HEMOGLOBIN 8.9 g/dL (12.0-16.0); LYMPHOCYTES # (AUTO) 1.2 K/uL (1.0-5.5); MEAN CORPUSCULAR HEMOGLOBIN 27 pg (27-31); MEAN CORPUSCULAR HGB CONC 32 % (32-36); MEAN CORPUSCULAR VOLUME 84 fL (79.0-98.0); PLATELET COUNT (AUTO) 133 K/uL (130-430); RED BLOOD CELL COUNT(AUTO) 3.29 MIL/uL (4.2-6.2); RED CELL DISTRIBUTION WIDTH 18.3 % (9.0-15.0); WHITE BLOOD COUNT (AUTO) 4.8 K/uL (4.8-10.8)
[2019-08-18 14:09] LABS: EOSINOPHILS % (AUTO) 4.1 % (0.0-4.0); LYMPHOCYTES % (AUTO) 26.2 % (20.5-51.5); MONOCYTES % (AUTO) 11.8 % (1.7-9.3); NEUTROPHILS % (AUTO) 56.6 % (40.0-70.0)
[2019-08-18 14:10] LABS: BASOPHILS % (AUTO) 1.3 % (0.0-2.0); MONOCYTES # (AUTO) 0.6 K/uL (0.0-1.0); NEUTROPHILS # (AUTO) 2.7 K/uL (1.8-7.7)
[2019-08-18 16:00] VITALS: BP_SYST 120
[2019-08-18] MEDS ORDERED: TPN PERIPHERAL IV SCH ×10 (21:00)
[2019-08-18] MEDS ORDERED: POTASSIUM ACETATE IV SCH ×10 (21:00)
[2019-08-18] MEDS ORDERED: SODIUM CHLORIDE IV SCH ×10 (21:00)
[2019-08-18] MEDS ORDERED: [UNRECOGNIZED DRUG - OTHER] IV SCH ×10 (21:00)
[2019-08-18] MEDS: FAT EMULSIONS 250 ML IV SCH (21:18)
[2019-08-18 21:30] VITALS: BP_SYST 132
[2019-08-19 00:03] VITALS: BP_SYST 106
[2019-08-19] MEDS: LEVOTHYROXINE SODIUM 0.15 MG TABLET PO SCH (06:15)
[2019-08-19] MEDS: INSULIN REGULAR, HUMAN 100 UNITS/ML, 10 ML VIAL (humuLIN R) SUBCUT PRN ×4 (06:16→22:02)
[2019-08-19] MEDS: ACETAMINOPHEN 325 MG TABLET PO PRN (06:46)
[2019-08-19 07:12] LABS: ALBUMIN 2.2 g/dL (3.4-4.8); CALCIUM 8.1 mg/dL (8.4-11.0); CREATININE 1.17 mg/dL (0.55-1.30); PHOSPHORUS 3.3 mg/dL (2.7-4.5); POTASSIUM 4.8 mmol/L (3.5-5.1); TOTAL BILIRUBIN 0.5 mg/dL (0.0-1.0)
[2019-08-19 08:00] VITALS: BP_SYST 131
[2019-08-19] MEDS: ASCORBIC ACID 500 MG TABLET PO SCH (09:00)
[2019-08-19] MEDS: CHOLECALCIFEROL (VITAMIN D3) 2,000 UNIT TABLET PO SCH (09:00)
[2019-08-19] MEDS: DOCUSATE SODIUM 100 MG CAPSULE PO SCH (09:00)
[2019-08-19] MEDS: LACTULOSE 20 GM/30 ML UDC PO SCH ×3 (09:00→21:00)
[2019-08-19] MEDS: NIACIN 500 MG CAPSULE.SA PO SCH ×2 (09:00→22:00)
[2019-08-19 09:38] LABS: C-REACTIVE PROTEIN QUANT 9.9 mg/dL (0-0.5)
[2019-08-19 09:53] LABS: BASOPHILS % (AUTO) 0.8 % (0.0-2.0); EOSINOPHILS # (AUTO) 0.2 K/uL (0.0-0.4); HEMATOCRIT 27.4 % (36-48); LYMPHOCYTES # (AUTO) 1.3 K/uL (1.0-5.5); LYMPHOCYTES % (AUTO) 29.1 % (20.5-51.5); MEAN CORPUSCULAR HEMOGLOBIN 27 pg (27-31); MEAN CORPUSCULAR HGB CONC 33 % (32-36); MEAN CORPUSCULAR VOLUME 81 fL (79.0-98.0); MONOCYTES # (AUTO) 0.7 K/uL (0.0-1.0); MONOCYTES % (AUTO) 14.4 % (1.7-9.3); NEUTROPHILS # (AUTO) 2.3 K/uL (1.8-7.7); NEUTROPHILS % (AUTO) 50.7 % (40.0-70.0); PLATELET COUNT (AUTO) 121 K/uL (130-430); RED BLOOD CELL COUNT(AUTO) 3.36 MIL/uL (4.2-6.2); RED CELL DISTRIBUTION WIDTH 18.2 % (9.0-15.0); WHITE BLOOD COUNT (AUTO) 4.6 K/uL (4.8-10.8)
[2019-08-19 10:09] LABS: FIBRINOGEN 411 mg/dL (200-400)
[2019-08-19] MEDS: FUROSEMIDE 40 MG/4 ML VIAL IVP SCH ×2 (10:16→22:01)
[2019-08-19] MEDS: ENOXAPARIN SODIUM 40 MG/0.4 ML SYRINGE SUBCUT SCH (10:17)
[2019-08-19] MEDS: BALSAM PERU/CASTOR OIL 60 GM OINT...G. TP SCH (10:18)
[2019-08-19 10:38] LABS: ERYTHROCYTE SEDIMENTATION RATE 102 MM/HR (0-20)
[2019-08-19 11:40] VITALS: BP_SYST 103
[2019-08-19 16:00] VITALS: BP_SYST 121
[2019-08-19 20:30] VITALS: BP_SYST 106
[2019-08-19] MEDS ORDERED: TPN PERIPHERAL IV SCH ×10 (21:00)
[2019-08-19] MEDS ORDERED: SODIUM CHLORIDE IV SCH ×10 (21:00)
[2019-08-19] MEDS ORDERED: [UNRECOGNIZED DRUG - OTHER] IV SCH ×10 (21:00)
[2019-08-19] MEDS ORDERED: POTASSIUM ACETATE IV SCH ×10 (21:00)
[2019-08-19] MEDS: FAT EMULSIONS 250 ML IV SCH (21:59)
[2019-08-20 00:15] VITALS: BP_SYST 111
[2019-08-20] MEDS: LEVOTHYROXINE SODIUM 0.15 MG TABLET PO SCH (07:00)
[2019-08-20] MEDS: INSULIN REGULAR, HUMAN 100 UNITS/ML, 10 ML VIAL (humuLIN R) SUBCUT PRN ×4 (07:02→23:13)
[2019-08-20 08:52] VITALS: BP_SYST 104
[2019-08-20] MEDS: NIACIN 500 MG CAPSULE.SA PO SCH ×2 (08:56→21:00)
[2019-08-20] MEDS: LACTULOSE 20 GM/30 ML UDC PO SCH ×3 (08:56→21:00)
[2019-08-20] MEDS: ASCORBIC ACID 500 MG TABLET PO SCH (08:56)
[2019-08-20] MEDS: DOCUSATE SODIUM 100 MG CAPSULE PO SCH (08:56)
[2019-08-20] MEDS: CHOLECALCIFEROL (VITAMIN D3) 2,000 UNIT TABLET PO SCH (08:57)
[2019-08-20] MEDS: ENOXAPARIN SODIUM 40 MG/0.4 ML SYRINGE SUBCUT SCH (08:57)
[2019-08-20] MEDS: BALSAM PERU/CASTOR OIL 60 GM OINT...G. TP SCH (08:58)
[2019-08-20] MEDS: FUROSEMIDE 40 MG/4 ML VIAL IVP SCH ×2 (08:59→21:00)
[2019-08-20 09:29] LABS: ALBUMIN 1.9 g/dL (3.4-4.8); CALCIUM 7.8 mg/dL (8.4-11.0); CREATININE 1.13 mg/dL (0.55-1.30); PHOSPHORUS 4.4 mg/dL (2.7-4.5); POTASSIUM 4.4 mmol/L (3.5-5.1); TOTAL BILIRUBIN 0.5 mg/dL (0.0-1.0)
[2019-08-20 12:00] VITALS: BP_SYST 107
[2019-08-20 17:41] VITALS: BP_SYST 89
[2019-08-20 18:00] VITALS: BP_SYST 95
[2019-08-20 21:00] VITALS: BP_SYST 98
[2019-08-20] MEDS: POTASSIUM ACETATE IV SCH ×10 (21:00)
[2019-08-20] MEDS: [UNRECOGNIZED DRUG - OTHER] IV SCH ×10 (21:00)
[2019-08-20] MEDS: SODIUM CHLORIDE IV SCH ×10 (21:00)
[2019-08-20] MEDS: FAT EMULSIONS 250 ML IV SCH (21:00)
[2019-08-20] MEDS: TPN PERIPHERAL IV SCH ×10 (21:00)
[2019-08-21] MEDS: LEVOTHYROXINE SODIUM 0.15 MG TABLET PO SCH (06:01)
[2019-08-21] MEDS: MENTHOL/ZINC OXIDE 113 GM OINT. TP PRN (06:03)
[2019-08-21] MEDS: INSULIN REGULAR, HUMAN 100 UNITS/ML, 10 ML VIAL (humuLIN R) SUBCUT PRN ×4 (06:03→21:39)
[2019-08-21] MEDS: NIACIN 500 MG CAPSULE.SA PO SCH ×2 (09:21→21:06)
[2019-08-21] MEDS: LACTULOSE 20 GM/30 ML UDC PO SCH ×3 (09:21→21:06)
[2019-08-21] MEDS: DOCUSATE SODIUM 100 MG CAPSULE PO SCH (09:21)
[2019-08-21] MEDS: ASCORBIC ACID 500 MG TABLET PO SCH (09:21)
[2019-08-21] MEDS: ENOXAPARIN SODIUM 40 MG/0.4 ML SYRINGE SUBCUT SCH (09:22)
[2019-08-21] MEDS: CHOLECALCIFEROL (VITAMIN D3) 2,000 UNIT TABLET PO SCH (09:22)
[2019-08-21] MEDS: BALSAM PERU/CASTOR OIL 60 GM OINT...G. TP SCH (09:22)
[2019-08-21] MEDS: FUROSEMIDE 40 MG/4 ML VIAL IVP SCH ×2 (09:23→21:06)
[2019-08-21 09:24] VITALS: BP_SYST 123
[2019-08-21 09:40] LABS: C-REACTIVE PROTEIN QUANT 5.3 mg/dL (0-0.5); CREATININE 1.13 mg/dL (0.55-1.30); PHOSPHORUS 4.5 mg/dL (2.7-4.5); POTASSIUM 4.8 mmol/L (3.5-5.1); TOTAL BILIRUBIN 0.3 mg/dL (0.0-1.0)
[2019-08-21 14:19] VITALS: BP_SYST 110
[2019-08-21 18:52] VITALS: BP_SYST 74
[2019-08-21 19:00] VITALS: BP_SYST 107
[2019-08-21 20:00] VITALS: BP_SYST 107
[2019-08-21] MEDS: [UNRECOGNIZED DRUG - OTHER] IV SCH ×10 (20:31)
[2019-08-21] MEDS: POTASSIUM ACETATE IV SCH ×19 (20:31→21:40)
[2019-08-21] MEDS: TPN PERIPHERAL IV SCH ×19 (20:31→21:40)
[2019-08-21] MEDS: SODIUM CHLORIDE IV SCH ×19 (20:31→21:40)
[2019-08-21] MEDS: MIRTAZAPINE 15 MG TABLET PO SCH (21:06)
[2019-08-21] MEDS: [UNRECOGNIZED DRUG - OTHER] IV SCH ×9 (21:40)
[2019-08-21] MEDS: FAT EMULSIONS 250 ML IV SCH (21:41)
[2019-08-22] VITALS: BP_SYST 105
[2019-08-22 04:00] VITALS: BP_SYST 108
[2019-08-22] MEDS ORDERED: DIPHENHYDRAMINE HCL 25 MG CAPSULE PO ONE (05:30)
[2019-08-22] MEDS ORDERED: DIPHENHYDRAMINE INJ 50 MG/ML VIAL IVP PRN (05:30)
[2019-08-22] MEDS ORDERED: DIPHENHYDRAMINE HCL 25 MG CAPSULE ONE (05:50)
[2019-08-22] MEDS: LEVOTHYROXINE SODIUM 0.15 MG TABLET PO SCH (06:00)
[2019-08-22] MEDS: INSULIN REGULAR, HUMAN 100 UNITS/ML, 10 ML VIAL (humuLIN R) SUBCUT PRN ×3 (06:01→21:30)
[2019-08-22 07:49] LABS: ALBUMIN 2.1 g/dL (3.4-4.8); CREATININE 1.23 mg/dL (0.55-1.30); PHOSPHORUS 3.8 mg/dL (2.7-4.5); POTASSIUM 4.5 mmol/L (3.5-5.1); TOTAL BILIRUBIN 0.4 mg/dL (0.0-1.0)
[2019-08-22] MEDS ORDERED: SODIUM CHLORIDE IV SCH ×10 (08:30)
[2019-08-22] MEDS ORDERED: POTASSIUM ACETATE IV SCH ×10 (08:30)
[2019-08-22] MEDS ORDERED: TPN PERIPHERAL IV SCH ×10 (08:30)
[2019-08-22] MEDS ORDERED: [UNRECOGNIZED DRUG - OTHER] IV SCH ×10 (08:30)
[2019-08-22] MEDS: DOCUSATE SODIUM 100 MG CAPSULE PO SCH (09:38)
[2019-08-22] MEDS: NIACIN 500 MG CAPSULE.SA PO SCH ×2 (09:38→21:30)
[2019-08-22] MEDS: LACTULOSE 20 GM/30 ML UDC PO SCH ×3 (09:38→21:30)
[2019-08-22] MEDS: CHOLECALCIFEROL (VITAMIN D3) 2,000 UNIT TABLET PO SCH (09:38)
[2019-08-22] MEDS: ASCORBIC ACID 500 MG TABLET PO SCH (09:38)
[2019-08-22] MEDS: FUROSEMIDE 40 MG/4 ML VIAL IVP SCH ×2 (09:38→22:00)
[2019-08-22] MEDS: ENOXAPARIN SODIUM 40 MG/0.4 ML SYRINGE SUBCUT SCH (09:39)
[2019-08-22] MEDS: BALSAM PERU/CASTOR OIL 60 GM OINT...G. TP SCH (09:39)
[2019-08-22 11:01] VITALS: BP_SYST 87
[2019-08-22 13:19] VITALS: BP_SYST 111
[2019-08-22 16:00] VITALS: BP_SYST 98
[2019-08-22 20:00] VITALS: BP_SYST 120
[2019-08-22] MEDS: SODIUM CHLORIDE IV SCH ×19 (20:31→22:00)
[2019-08-22] MEDS: TPN PERIPHERAL IV SCH ×19 (20:31→22:00)
[2019-08-22] MEDS: [UNRECOGNIZED DRUG - OTHER] IV SCH ×9 (20:31)
[2019-08-22] MEDS: POTASSIUM ACETATE IV SCH ×19 (20:31→22:00)
[2019-08-22] MEDS: MIRTAZAPINE 15 MG TABLET PO SCH (21:30)
[2019-08-22] MEDS ORDERED: LORazepam 2 MG/ML VIAL IVP ONE (22:00)
[2019-08-22] MEDS: FAT EMULSIONS 250 ML IV SCH (22:00)
[2019-08-22] MEDS: [UNRECOGNIZED DRUG - OTHER] IV SCH ×10 (22:00)
[2019-08-23] VITALS: BP_SYST 111
[2019-08-23] MEDS ORDERED: LORazepam 2 MG/ML VIAL IVP ONE (03:30)
[2019-08-23 04:00] VITALS: BP_SYST 138
[2019-08-23] MEDS ORDERED: LORazepam 1 MG TABLET PO ONE (06:15)
[2019-08-23] MEDS: LEVOTHYROXINE SODIUM 0.15 MG TABLET PO SCH (06:15)
[2019-08-23] MEDS: FUROSEMIDE 40 MG/4 ML VIAL IVP SCH ×2 (07:33→21:00)
[2019-08-23] MEDS: LACTULOSE 20 GM/30 ML UDC PO SCH ×3 (07:34→21:00)
[2019-08-23] MEDS: INSULIN REGULAR, HUMAN 100 UNITS/ML, 10 ML VIAL (humuLIN R) SUBCUT PRN ×2 (07:46→18:59)
[2019-08-23 08:06] LABS: ALBUMIN 2.4 g/dL (3.4-4.8); CALCIUM 8.5 mg/dL (8.4-11.0); CREATININE 1.3 mg/dL (0.55-1.30); PHOSPHORUS 4.2 mg/dL (2.7-4.5); POTASSIUM 4.3 mmol/L (3.5-5.1); TOTAL BILIRUBIN 0.6 mg/dL (0.0-1.0)
[2019-08-23] MEDS: ENOXAPARIN SODIUM 40 MG/0.4 ML SYRINGE SUBCUT SCH (09:00)
[2019-08-23] MEDS: ASCORBIC ACID 500 MG TABLET PO SCH (09:00)
[2019-08-23] MEDS: BALSAM PERU/CASTOR OIL 60 GM OINT...G. TP SCH (09:00)
[2019-08-23] MEDS: NIACIN 500 MG CAPSULE.SA PO SCH ×2 (09:00→21:00)
[2019-08-23] MEDS: CHOLECALCIFEROL (VITAMIN D3) 2,000 UNIT TABLET PO SCH (09:00)
[2019-08-23] MEDS: DOCUSATE SODIUM 100 MG CAPSULE PO SCH (09:00)
[2019-08-23 09:06] VITALS: BP_SYST 125
[2019-08-23 13:32] VITALS: BP_SYST 128
[2019-08-23 18:21] VITALS: BP_SYST 128
[2019-08-23 20:00] VITALS: BP_SYST 133
[2019-08-23] MEDS: [UNRECOGNIZED DRUG - OTHER] IV SCH ×10 (20:31)
[2019-08-23] MEDS: TPN PERIPHERAL IV SCH ×21 (20:31→21:00)
[2019-08-23] MEDS: SODIUM CHLORIDE IV SCH ×21 (20:31→21:00)
[2019-08-23] MEDS: POTASSIUM ACETATE IV SCH ×21 (20:31→21:00)
[2019-08-23] MEDS: FAT EMULSIONS 250 ML IV SCH (21:00)
[2019-08-23] MEDS: MIRTAZAPINE 15 MG TABLET PO SCH (21:00)
[2019-08-23] MEDS: [UNRECOGNIZED DRUG - OTHER] IV SCH ×11 (21:00)
[2019-08-24] MEDS: INSULIN REGULAR, HUMAN 100 UNITS/ML, 10 ML VIAL (humuLIN R) SUBCUT PRN ×3 (01:27→14:24)
[2019-08-24 01:39] VITALS: BP_SYST 107
[2019-08-24 04:00] VITALS: BP_SYST 114
[2019-08-24] MEDS: LEVOTHYROXINE SODIUM 0.15 MG TABLET PO SCH (06:29)
[2019-08-24 07:24] LABS: BASOPHILS # (AUTO) 0.1 K/uL (0.0-0.2); BASOPHILS % (AUTO) 0.8 % (0.0-2.0); EOSINOPHILS # (AUTO) 0.2 K/uL (0.0-0.4); EOSINOPHILS % (AUTO) 3.3 % (0.0-4.0); HEMATOCRIT 25.7 % (36-48); HEMOGLOBIN 8.4 g/dL (12.0-16.0); LYMPHOCYTES # (AUTO) 2.2 K/uL (1.0-5.5); LYMPHOCYTES % (AUTO) 31.7 % (20.5-51.5); MEAN CORPUSCULAR HEMOGLOBIN 27 pg (27-31); MEAN CORPUSCULAR HGB CONC 33 % (32-36); MEAN CORPUSCULAR VOLUME 83 fL (79.0-98.0); MONOCYTES # (AUTO) 0.9 K/uL (0.0-1.0); MONOCYTES % (AUTO) 13.3 % (1.7-9.3); NEUTROPHILS # (AUTO) 3.6 K/uL (1.8-7.7); NEUTROPHILS % (AUTO) 50.9 % (40.0-70.0); PLATELET COUNT (AUTO) 130 K/uL (130-430); RED BLOOD CELL COUNT(AUTO) 3.11 MIL/uL (4.2-6.2); RED CELL DISTRIBUTION WIDTH 18.2 % (9.0-15.0)
[2019-08-24 08:00] VITALS: BP_SYST 113
[2019-08-24 08:17] LABS: ALBUMIN 2.5 g/dL (3.4-4.8); CALCIUM 8.9 mg/dL (8.4-11.0); CREATININE 1.22 mg/dL (0.55-1.30); POTASSIUM 4.6 mmol/L (3.5-5.1); TOTAL BILIRUBIN 0.7 mg/dL (0.0-1.0)
[2019-08-24 08:52] LABS: C-REACTIVE PROTEIN QUANT 11.4 mg/dL (0-0.5)
[2019-08-24] MEDS: FUROSEMIDE 40 MG/4 ML VIAL IVP SCH ×2 (09:00→20:50)
[2019-08-24] MEDS: ENOXAPARIN SODIUM 40 MG/0.4 ML SYRINGE SUBCUT SCH (09:00)
[2019-08-24] MEDS: NIACIN 500 MG CAPSULE.SA PO SCH ×2 (09:21→21:29)
[2019-08-24] MEDS: DOCUSATE SODIUM 100 MG CAPSULE PO SCH (09:21)
[2019-08-24] MEDS: ASCORBIC ACID 500 MG TABLET PO SCH (09:21)
[2019-08-24] MEDS: CHOLECALCIFEROL (VITAMIN D3) 2,000 UNIT TABLET PO SCH (09:21)
[2019-08-24] MEDS: BALSAM PERU/CASTOR OIL 60 GM OINT...G. TP SCH (09:22)
[2019-08-24] MEDS: LACTULOSE 20 GM/30 ML UDC PO SCH ×3 (09:25→20:50)
[2019-08-24 12:00] VITALS: BP_SYST 122
[2019-08-24] MEDS ORDERED: FLUCONAZOLE 200 mg/ NS 100 ML IV SCH (12:00)
[2019-08-24] MEDS: FLUCONAZOLE 200 MG TABLET (DIFLUCAN) PO SCH (12:00)
[2019-08-24 16:00] VITALS: BP_SYST 106
[2019-08-24 20:30] VITALS: BP_SYST 126
[2019-08-24] MEDS: [UNRECOGNIZED DRUG - OTHER] IV SCH ×11 (20:49)
[2019-08-24] MEDS: SODIUM CHLORIDE IV SCH ×22 (20:49)
[2019-08-24] MEDS: [UNRECOGNIZED DRUG - OTHER] IV SCH ×11 (20:49)
[2019-08-24] MEDS: POTASSIUM ACETATE IV SCH ×22 (20:49)
[2019-08-24] MEDS: FAT EMULSIONS 250 ML IV SCH (20:49)
[2019-08-24] MEDS: TPN PERIPHERAL IV SCH ×22 (20:49)
[2019-08-24] MEDS: MIRTAZAPINE 15 MG TABLET PO SCH (21:29)
[2019-08-25 00:45] VITALS: BP_SYST 111
[2019-08-25] MEDS: LACTULOSE 20 GM/30 ML UDC PO SCH ×3 (00:46→15:00)
[2019-08-25] MEDS: LEVOTHYROXINE SODIUM 0.15 MG TABLET PO SCH (06:41)
[2019-08-25] MEDS: BALSAM PERU/CASTOR OIL 60 GM OINT...G. TP SCH (09:00)
[2019-08-25] MEDS: FUROSEMIDE 40 MG/4 ML VIAL IVP SCH ×2 (09:00→21:00)
[2019-08-25] MEDS: DOCUSATE SODIUM 100 MG CAPSULE PO SCH (09:00)
[2019-08-25] MEDS: CHOLECALCIFEROL (VITAMIN D3) 2,000 UNIT TABLET PO SCH (09:00)
[2019-08-25] MEDS: RIFAXIMIN 550 MG TABLET PO SCH (09:00)
[2019-08-25] MEDS: ENOXAPARIN SODIUM 40 MG/0.4 ML SYRINGE SUBCUT SCH (09:00)
[2019-08-25] MEDS: ASCORBIC ACID 500 MG TABLET PO SCH (09:00)
[2019-08-25] MEDS: NIACIN 500 MG CAPSULE.SA PO SCH (09:00)
[2019-08-25] MEDS: FLUCONAZOLE 200 MG TABLET (DIFLUCAN) PO SCH (09:00)
[2019-08-25 09:30] VITALS: BP_SYST 105
[2019-08-25 10:22] LABS: POTASSIUM 4.3 mmol/L (3.5-5.1)
[2019-08-25 10:23] LABS: CALCIUM 9.2 mg/dL (8.4-11.0); CREATININE 1.24 mg/dL (0.55-1.30); TOTAL BILIRUBIN 0.7 mg/dL (0.0-1.0)
[2019-08-25 10:24] LABS: ALBUMIN 2.6 g/dL (3.4-4.8)
[2019-08-25 10:25] LABS: PHOSPHORUS 4.6 mg/dL (2.7-4.5)
[2019-08-25 10:33] LABS: C-REACTIVE PROTEIN QUANT 13.8 mg/dL (0-0.5)
[2019-08-25 12:30] VITALS: BP_SYST 118
[2019-08-25] MEDS: INSULIN REGULAR, HUMAN 100 UNITS/ML, 10 ML VIAL (humuLIN R) SUBCUT PRN (13:00)
[2019-08-25 16:00] VITALS: BP_SYST 99
[2019-08-25] MEDS: POTASSIUM ACETATE IV SCH ×19 (20:45→21:00)
[2019-08-25] MEDS: [UNRECOGNIZED DRUG - OTHER] IV SCH ×11 (20:45)
[2019-08-25] MEDS: TPN PERIPHERAL IV SCH ×19 (20:45→21:00)
[2019-08-25] MEDS: SODIUM CHLORIDE IV SCH ×19 (20:45→21:00)
[2019-08-25] MEDS: [UNRECOGNIZED DRUG - OTHER] IV SCH ×8 (21:00)
[2019-08-25] MEDS: FAT EMULSIONS 250 ML IV SCH (21:00)
[2019-08-26 00:45] VITALS: BP_SYST 98
[2019-08-26] MEDS: RIFAXIMIN 550 MG TABLET PO SCH ×3 (00:46→22:01)
[2019-08-26] MEDS: NIACIN 500 MG CAPSULE.SA PO SCH ×3 (00:46→22:01)
[2019-08-26] MEDS: LACTULOSE 20 GM/30 ML UDC PO SCH ×4 (00:46→21:00)
[2019-08-26] MEDS: MIRTAZAPINE 15 MG TABLET PO SCH ×2 (00:46→22:01)
[2019-08-26] MEDS: INSULIN REGULAR, HUMAN 100 UNITS/ML, 10 ML VIAL (humuLIN R) SUBCUT PRN ×4 (06:20→22:02)
[2019-08-26] MEDS: LEVOTHYROXINE SODIUM 0.15 MG TABLET PO SCH (06:35)
[2019-08-26 07:31] LABS: BASOPHILS % (AUTO) 0.7 % (0.0-2.0); EOSINOPHILS # (AUTO) 0.1 K/uL (0.0-0.4); EOSINOPHILS % (AUTO) 2.1 % (0.0-4.0); HEMATOCRIT 25.5 % (36-48); HEMOGLOBIN 8.2 g/dL (12.0-16.0); LYMPHOCYTES # (AUTO) 1.7 K/uL (1.0-5.5); LYMPHOCYTES % (AUTO) 27.8 % (20.5-51.5); MEAN CORPUSCULAR HEMOGLOBIN 27 pg (27-31); MEAN CORPUSCULAR HGB CONC 32 % (32-36); MEAN CORPUSCULAR VOLUME 84 fL (79.0-98.0); MONOCYTES # (AUTO) 0.6 K/uL (0.0-1.0); MONOCYTES % (AUTO) 9.8 % (1.7-9.3); NEUTROPHILS # (AUTO) 3.6 K/uL (1.8-7.7); NEUTROPHILS % (AUTO) 59.6 % (40.0-70.0); PLATELET COUNT (AUTO) 137 K/uL (130-430); RED BLOOD CELL COUNT(AUTO) 3.05 MIL/uL (4.2-6.2); RED CELL DISTRIBUTION WIDTH 18.1 % (9.0-15.0)
[2019-08-26 08:00] VITALS: BP_SYST 98
[2019-08-26 08:09] LABS: ALBUMIN 2.4 g/dL (3.4-4.8); CALCIUM 8.7 mg/dL (8.4-11.0); CREATININE 1.58 mg/dL (0.55-1.30); PHOSPHORUS 4.5 mg/dL (2.7-4.5); TOTAL BILIRUBIN 0.9 mg/dL (0.0-1.0)
[2019-08-26 08:22] LABS: INR 1.2 (0.8-1.2); PROTHROMBIN TIME 11.8 SECS (9.5-12.5)
[2019-08-26] MEDS: FUROSEMIDE 40 MG/4 ML VIAL IVP SCH ×2 (09:00→22:01)
[2019-08-26 09:04] LABS: C-REACTIVE PROTEIN QUANT 12.6 mg/dL (0-0.5)
[2019-08-26] MEDS: ASCORBIC ACID 500 MG TABLET PO SCH (11:00)
[2019-08-26] MEDS: FLUCONAZOLE 200 MG TABLET (DIFLUCAN) PO SCH (11:00)
[2019-08-26] MEDS: DOCUSATE SODIUM 100 MG CAPSULE PO SCH (11:00)
[2019-08-26] MEDS: CHOLECALCIFEROL (VITAMIN D3) 2,000 UNIT TABLET PO SCH (11:00)
[2019-08-26 12:00] VITALS: BP_SYST 99
[2019-08-26] MEDS: ENOXAPARIN SODIUM 40 MG/0.4 ML SYRINGE SUBCUT SCH (15:00)
[2019-08-26 16:30] VITALS: BP_SYST 95
[2019-08-26] MEDS: BALSAM PERU/CASTOR OIL 60 GM OINT...G. TP SCH (17:00)
[2019-08-26 19:40] VITALS: BP_SYST 100
[2019-08-26] MEDS: FAT EMULSIONS 250 ML IV SCH (20:05)
[2019-08-26] MEDS: SODIUM CHLORIDE IV SCH ×8 (20:45)
[2019-08-26] MEDS: [UNRECOGNIZED DRUG - OTHER] IV SCH ×8 (20:45)
[2019-08-26] MEDS: POTASSIUM ACETATE IV SCH ×8 (20:45)
[2019-08-26] MEDS: TPN PERIPHERAL IV SCH ×8 (20:45)
[2019-08-26] MEDS ORDERED: [UNRECOGNIZED DRUG - OTHER] IV SCH ×8 (21:00)
[2019-08-26] MEDS ORDERED: POTASSIUM ACETATE IV SCH ×8 (21:00)
[2019-08-26] MEDS ORDERED: SODIUM CHLORIDE IV SCH ×8 (21:00)
[2019-08-26] MEDS ORDERED: TPN PERIPHERAL IV SCH ×8 (21:00)
[2019-08-27] VITALS: BP_SYST 131
[2019-08-27] MEDS: ACETAMINOPHEN 325 MG TABLET PO PRN ×2 (00:49→22:00)
[2019-08-27] MEDS: LEVOTHYROXINE SODIUM 0.15 MG TABLET PO SCH (06:46)
[2019-08-27] MEDS: INSULIN REGULAR, HUMAN 100 UNITS/ML, 10 ML VIAL (humuLIN R) SUBCUT PRN ×4 (06:47→21:08)
[2019-08-27 07:27] LABS: ALBUMIN 2.3 g/dL (3.4-4.8); CALCIUM 8.3 mg/dL (8.4-11.0); CREATININE 1.69 mg/dL (0.55-1.30); PHOSPHORUS 3.4 mg/dL (2.7-4.5); POTASSIUM 4.6 mmol/L (3.5-5.1); TOTAL BILIRUBIN 0.4 mg/dL (0.0-1.0)
[2019-08-27 08:00] VITALS: BP_SYST 140
[2019-08-27] MEDS: ENOXAPARIN SODIUM 40 MG/0.4 ML SYRINGE SUBCUT SCH (09:00)
[2019-08-27] MEDS: CHOLECALCIFEROL (VITAMIN D3) 2,000 UNIT TABLET PO SCH (09:00)
[2019-08-27] MEDS: ASCORBIC ACID 500 MG TABLET PO SCH (09:00)
[2019-08-27] MEDS: DOCUSATE SODIUM 100 MG CAPSULE PO SCH (09:00)
[2019-08-27] MEDS: NIACIN 500 MG CAPSULE.SA PO SCH ×2 (09:00→21:06)
[2019-08-27] MEDS: RIFAXIMIN 550 MG TABLET PO SCH ×2 (09:00→21:06)
[2019-08-27] MEDS: FUROSEMIDE 40 MG/4 ML VIAL IVP SCH ×2 (09:00→21:06)
[2019-08-27] MEDS: BALSAM PERU/CASTOR OIL 60 GM OINT...G. TP SCH (09:00)
[2019-08-27] MEDS: LACTULOSE 20 GM/30 ML UDC PO SCH ×3 (09:00→21:00)
[2019-08-27] MEDS: FLUCONAZOLE 200 MG TABLET (DIFLUCAN) PO SCH (09:00)
[2019-08-27 12:00] VITALS: BP_SYST 115
[2019-08-27 16:00] VITALS: BP_SYST 112
[2019-08-27 20:00] VITALS: BP_SYST 147
[2019-08-27] MEDS ORDERED: [UNRECOGNIZED DRUG - OTHER] IV SCH ×8 (21:00)
[2019-08-27] MEDS ORDERED: POTASSIUM ACETATE IV SCH ×8 (21:00)
[2019-08-27] MEDS ORDERED: TPN PERIPHERAL IV SCH ×8 (21:00)
[2019-08-27] MEDS ORDERED: SODIUM CHLORIDE IV SCH ×8 (21:00)
[2019-08-27] MEDS: FAT EMULSIONS 250 ML IV SCH (21:04)
[2019-08-27] MEDS: MIRTAZAPINE 15 MG TABLET PO SCH (21:06)
[2019-08-28] VITALS: BP_SYST 108
[2019-08-28] MEDS: LEVOTHYROXINE SODIUM 0.15 MG TABLET PO SCH (06:04)
[2019-08-28] MEDS: INSULIN REGULAR, HUMAN 100 UNITS/ML, 10 ML VIAL (humuLIN R) SUBCUT PRN ×2 (06:05→13:22)
[2019-08-28 08:00] VITALS: BP_SYST 113
[2019-08-28 08:44] LABS: BASOPHILS % (AUTO) 0.9 % (0.0-2.0); EOSINOPHILS # (AUTO) 0.2 K/uL (0.0-0.4); EOSINOPHILS % (AUTO) 4.6 % (0.0-4.0); HEMATOCRIT 27.5 % (36-48); HEMOGLOBIN 8.8 g/dL (12.0-16.0); LYMPHOCYTES # (AUTO) 1.8 K/uL (1.0-5.5); LYMPHOCYTES % (AUTO) 33.6 % (20.5-51.5); MEAN CORPUSCULAR HEMOGLOBIN 27 pg (27-31); MEAN CORPUSCULAR HGB CONC 32 % (32-36); MEAN CORPUSCULAR VOLUME 84 fL (79.0-98.0); MONOCYTES # (AUTO) 0.4 K/uL (0.0-1.0); MONOCYTES % (AUTO) 7.8 % (1.7-9.3); NEUTROPHILS # (AUTO) 2.8 K/uL (1.8-7.7); NEUTROPHILS % (AUTO) 53.1 % (40.0-70.0); PLATELET COUNT (AUTO) 142 K/uL (130-430); RED BLOOD CELL COUNT(AUTO) 3.27 MIL/uL (4.2-6.2); RED CELL DISTRIBUTION WIDTH 18.4 % (9.0-15.0); WHITE BLOOD COUNT (AUTO) 5.3 K/uL (4.8-10.8)
[2019-08-28 08:59] LABS: ALBUMIN 2.2 g/dL (3.4-4.8); CALCIUM 8.3 mg/dL (8.4-11.0); CREATININE 1.68 mg/dL (0.55-1.30); PHOSPHORUS 2.3 mg/dL (2.7-4.5); POTASSIUM 4.3 mmol/L (3.5-5.1); TOTAL BILIRUBIN 0.4 mg/dL (0.0-1.0)
[2019-08-28] MEDS: FUROSEMIDE 40 MG/4 ML VIAL IVP SCH (09:00)
[2019-08-28] MEDS: FLUCONAZOLE 200 MG TABLET (DIFLUCAN) PO SCH (09:00)
[2019-08-28] MEDS: CHOLECALCIFEROL (VITAMIN D3) 2,000 UNIT TABLET PO SCH (09:00)
[2019-08-28] MEDS: ASCORBIC ACID 500 MG TABLET PO SCH (09:00)
[2019-08-28] MEDS: ENOXAPARIN SODIUM 40 MG/0.4 ML SYRINGE SUBCUT SCH (09:00)
[2019-08-28] MEDS: BALSAM PERU/CASTOR OIL 60 GM OINT...G. TP SCH (09:00)
[2019-08-28] MEDS: DOCUSATE SODIUM 100 MG CAPSULE PO SCH (09:00)
[2019-08-28] MEDS: NIACIN 500 MG CAPSULE.SA PO SCH (09:00)
[2019-08-28] MEDS: LACTULOSE 20 GM/30 ML UDC PO SCH ×2 (09:00→13:24)
[2019-08-28] MEDS: RIFAXIMIN 550 MG TABLET PO SCH (09:00)
[2019-08-28] MEDS ORDERED: DIPHENHYDRAMINE HCL 25 MG CAPSULE PO ONE (10:00)
[2019-08-28 12:00] VITALS: BP_SYST 121
[2019-08-28] MEDS ORDERED: POTASSIUM CHLORIDE 20 MEQ TAB.PRT.SR PO ONE (12:00)
[2019-08-28] MEDS ORDERED: FUROSEMIDE 40 MG TABLET PO ONE ×2 (13:30→13:45)
[2019-08-28 15:31] VITALS: BP_SYST 124
[2019-08-28 16:00] VITALS: BP_SYST 124
[2019-08-28] MEDS: ACETAMINOPHEN 325 MG TABLET PO PRN (16:19)
[2019-08-28] MEDS ORDERED: [UNRECOGNIZED DRUG - OTHER] IV SCH ×9 (21:00)
[2019-08-28] MEDS ORDERED: POTASSIUM ACETATE IV SCH ×9 (21:00)
[2019-08-28] MEDS ORDERED: FUROSEMIDE 40 MG TABLET PO SCH (21:00)
[2019-08-28] MEDS ORDERED: TPN PERIPHERAL IV SCH ×9 (21:00)
[2019-08-28] MEDS ORDERED: SODIUM CHLORIDE IV SCH ×9 (21:00)
== END 2019-08-28 18:53 | disposition home or self-care (01) | DRG 720 ==
LOC: SED 21:23 → STU 08-04 00:04 → EEVIPCON 08-04 00:04 → STU 08-04 00:30
PROVIDERS: ADMIT Internal Medicine Hospice and Palliative Medicine; ATTEND Internal Medicine Hospice and Palliative Medicine
DX: A41.89 Other specified sepsis (principal); U07.1 COVID-19; J96.01 Acute respiratory failure with hypoxia; N17.0 Acute kidney failure with tubular necrosis; G93.41 Metabolic encephalopathy; E43 Unspecified severe protein-calorie malnutrition; R13.10 Dysphagia, unspecified; D69.6 Thrombocytopenia, unspecified; E11.22 Type 2 diabetes mellitus with diabetic chronic kidney disease; E87.5 Hyperkalemia; K74.60 Unspecified cirrhosis of liver; N39.0 Urinary tract infection, site not specified; R73.9 Hyperglycemia, unspecified; R65.20 Severe sepsis without septic shock; D63.8 Anemia in other chronic diseases classified elsewhere; E03.9 Hypothyroidism, unspecified; F32.9 Major depressive disorder, single episode, unspecified; I12.9 Hypertensive chronic kidney disease with stage 1 through stage 4 chronic kidney disease, or unspecified chronic kidney disease; A41.2 Sepsis due to unspecified staphylococcus; C18.9 Malignant neoplasm of colon, unspecified; J12.89 Other viral pneumonia; K72.90 Hepatic failure, unspecified without coma; K75.81 Nonalcoholic steatohepatitis (NASH); N18.9 Chronic kidney disease, unspecified; B96.20 Unspecified Escherichia coli [E. coli] as the cause of diseases classified elsewhere; Z66 Do not resuscitate; B96.4 Proteus (mirabilis) (morganii) as the cause of diseases classified elsewhere; Z16.12 Extended spectrum beta lactamase (ESBL) resistance; Z74.01 Bed confinement status; Z79.01 Long term (current) use of anticoagulants; Z85.038 Personal history of other malignant neoplasm of large intestine; Z85.05 Personal history of malignant neoplasm of liver
CPT/HCPCS: 36415; 36600; 70450-TC; 71045; 80048; 80053; 81000-TC; 82105; 82140-TC; 82728; 82803-TC; 82962; 83010; 83540-TC; 83550-TC; 83605; 83615-TC; 83735-TC; 84100-TC; 84478-TC; 84484; 85007; 85025; 85027; 85044-TC; 85379; 85384-TC; 85610-TC; 85651-TC; 85730-TC; 86140; 86710; 87040-TC; 87081; 87086; 87186-TC; 93005; 96365; 96375; 99291; C1751; G0378; J0456; J0610; J0696; J1200; J1335; J1450; J1650; J1815; J1940; J2060; J2405; J2543; J3370; J3475; J3480; J7030; J7040; J7042; J7050; J7060; J7131; Q0163; U0002; U0003-CS

== ENCOUNTER 2019-09-04 13:49 | Inpatient (IN) | payer MEDICAID, SELFPAY ==
[~2019-09-04] VITALS: Ht 157.5 cm; Wt 84.4 kg
[~2019-09-04 13:49] MED LIST changes: +DIPH25CA83 PO; -FAMO20TA8 PO; -FLEETMO RC; -HYDR-4272 PO; +INSU100V11 SQ; -LACT10SO6 PO; +LACT10SO7 PO; -LEVO112T2 PO; +LEVO125T PO; -PROSTAT PO; -RIFA550T5 PO; -SENN8.6T19 PO; -SODI650T PO
[2019-09-04] MEDS ORDERED: NACL 0.9% 1,000 ML IV ONE ×2 (14:18→18:00)
[2019-09-04 14:30] VITALS: BP_SYST 121
[2019-09-04] MEDS ORDERED: LEVOFLOXACIN 500 MG/D5W 100 ML IV ONE (14:30)
[2019-09-04 14:47] LABS: BASOPHILS % (AUTO) 0.5 % (0.0-2.0); EOSINOPHILS # (AUTO) 0.6 K/uL (0.0-0.4); EOSINOPHILS % (AUTO) 12.5 % (0.0-4.0); HEMATOCRIT 27.2 % (36-48); HEMOGLOBIN 8.6 g/dL (12.0-16.0); LYMPHOCYTES # (AUTO) 1.8 K/uL (1.0-5.5); LYMPHOCYTES % (AUTO) 34.6 % (20.5-51.5); MEAN CORPUSCULAR HEMOGLOBIN 27 pg (27-31); MEAN CORPUSCULAR HGB CONC 32 % (32-36); MEAN CORPUSCULAR VOLUME 85 fL (79.0-98.0); MONOCYTES # (AUTO) 0.4 K/uL (0.0-1.0); MONOCYTES % (AUTO) 8.5 % (1.7-9.3); NEUTROPHILS # (AUTO) 2.3 K/uL (1.8-7.7); NEUTROPHILS % (AUTO) 43.9 % (40.0-70.0); PLATELET COUNT (AUTO) 167 K/uL (130-430); RED CELL DISTRIBUTION WIDTH 19.8 % (9.0-15.0); WHITE BLOOD COUNT (AUTO) 5.1 K/uL (4.8-10.8)
[2019-09-04 15:04] LABS: CALCIUM 9.7 mg/dL (8.4-11.0); CREATININE 2.28 mg/dL (0.55-1.30); POTASSIUM 4.9 mmol/L (3.5-5.1)
[2019-09-04 15:10] LABS: ALBUMIN 2.6 g/dL (3.4-4.8); TOTAL BILIRUBIN 0.4 mg/dL (0.0-1.0)
[2019-09-04 16:12] LABS: BILIRUBIN,URINE NEGATIVE (NEGATIVE); BLOOD, URINE 2+ (NEGATIVE); COLOR,URINE YELLOW (YELLOW); GLUCOSE,URINE NEGATIVE (NEGATIVE); KETONES,URINE NEGATIVE (NEGATIVE); LEUKOCYTE ESTERASE ,URINE 1+ (NEGATIVE); NITRITE, URINE NEGATIVE (NEGATIVE); PROTEIN URINE 1+ (NEGATIVE); UROBILINOGEN,URINE 0.2 (0.2-1.0)
[2019-09-04 16:14] LABS: CLARITY/URINE HAZY (CLEAR)
[2019-09-04 16:16] LABS: BACTERIA,URINE FEW /HPF (None Seen); MUCUS,URINE None Seen /LPF (None Seen); RBC,URINE 0-3 /HPF (0-3)
[2019-09-04] MEDS ORDERED: DIPHENHYDRAMINE INJ 50 MG/ML VIAL IVP ONE (17:00)
[2019-09-04] MEDS ORDERED: HALOPERIDOL LACTATE 5 MG/ML VIAL IM ONE (17:00)
[2019-09-04] MEDS ORDERED: BISACODYL 10 MG/SUPPOSITORY RC PRN (18:45)
[2019-09-04] MEDS ORDERED: DEXTROSE 50% JECT 50 ML DISP.SYRIN IVP PRN (18:45)
[2019-09-04] MEDS ORDERED: DOCUSATE SODIUM 100 MG CAPSULE PO PRN (18:45)
[2019-09-04] MEDS: 0.45% NS 500 ML IV SCH ×2 (18:45→22:59)
[2019-09-04] MEDS ORDERED: ONDANSETRON 4 MG ODT TAB PO PRN (18:45)
[2019-09-04] MEDS ORDERED: IPRATROPIUM/ALBUTEROL SULFATE 3 ML AMPUL.NEB (DUONEB) INH PRN (20:30)
[2019-09-04] MEDS ORDERED: PEG 400/HYPROMELLOSE/GLYCERIN 15 ML DROPS BOTH EYES PRN (20:30)
[2019-09-04 21:11] VITALS: BP_SYST 106
[2019-09-04] MEDS: MIRTAZAPINE 15 MG TABLET PO SCH (22:59)
[2019-09-04] MEDS: NIACIN 500 MG CAPSULE.SA PO SCH (22:59)
[2019-09-04] MEDS: ENOXAPARIN SODIUM 30 MG/0.3 ML SYRINGE SUBCUT SCH (22:59)
[2019-09-04] MEDS: MEGESTROL ACETATE 400 MG/10 ML UDC PO SCH (22:59)
[2019-09-04] MEDS: LACTULOSE 20 GM/30 ML UDC PO SCH (22:59)
[2019-09-04] MEDS: cefTRIAXone 1 GM IVPB PREMIX 50 ML IV SCH (22:59)
[2019-09-04] MEDS: MULTIVITS,CA,MINERALS/IRON/FA 1 TABLET PO SCH (22:59)
[2019-09-04] MEDS: ASCORBIC ACID 500 MG TABLET PO SCH (23:00)
[2019-09-04] MEDS: CHOLECALCIFEROL (VITAMIN D3) 2,000 UNIT TABLET PO SCH (23:00)
[2019-09-04] MEDS ORDERED: cefTRIAXone 1 GM IVPB PREMIX 50 ML IV ONE (23:44)
[2019-09-05] VITALS: BP_SYST 132
[2019-09-05] MEDS: DOXYCYCLINE HYCLATE 100 MG CAPSULE PO SCH ×3 (00:45→20:50)
[2019-09-05] MEDS ORDERED: IPRATROPIUM/ALBUTEROL SULFATE 3 ML AMPUL.NEB (DUONEB) INH SCH (01:00)
[2019-09-05] MEDS: 0.45% NS 500 ML IV SCH ×7 (01:25→21:21)
[2019-09-05] MEDS ORDERED: ALBUTEROL MDI INHALATION 8 GM INH INH PRN (02:30)
[2019-09-05] MEDS: ACETAMINOPHEN 325 MG TABLET PO PRN (03:08)
[2019-09-05 05:11] VITALS: BP_SYST 103
[2019-09-05] MEDS: LEVOTHYROXINE SODIUM 0.125 MG TABLET PO SCH (06:25)
[2019-09-05] MEDS: INSULIN REGULAR, HUMAN 100 UNITS/ML, 10 ML VIAL (humuLIN R) SUBCUT PRN ×3 (06:26→21:16)
[2019-09-05 07:53] LABS: BASOPHILS % (AUTO) 0.6 % (0.0-2.0); EOSINOPHILS # (AUTO) 0.3 K/uL (0.0-0.4); EOSINOPHILS % (AUTO) 6.9 % (0.0-4.0); HEMATOCRIT 24.3 % (36-48); HEMOGLOBIN 7.7 g/dL (12.0-16.0); LYMPHOCYTES % (AUTO) 21.2 % (20.5-51.5); MEAN CORPUSCULAR HEMOGLOBIN 27 pg (27-31); MEAN CORPUSCULAR HGB CONC 32 % (32-36); MEAN CORPUSCULAR VOLUME 85 fL (79.0-98.0); MONOCYTES # (AUTO) 0.4 K/uL (0.0-1.0); NEUTROPHILS # (AUTO) 3.1 K/uL (1.8-7.7); NEUTROPHILS % (AUTO) 63.3 % (40.0-70.0); PLATELET COUNT (AUTO) 114 K/uL (130-430); RED BLOOD CELL COUNT(AUTO) 2.88 MIL/uL (4.2-6.2); RED CELL DISTRIBUTION WIDTH 19.6 % (9.0-15.0)
[2019-09-05 07:54] LABS: INR 1.2 (0.8-1.2); PROTHROMBIN TIME 11.9 SECS (9.5-12.5)
[2019-09-05 08:00] VITALS: BP_SYST 133
[2019-09-05 08:06] LABS: ALBUMIN 2.4 g/dL (3.4-4.8); CALCIUM 8.5 mg/dL (8.4-11.0); CREATININE 1.95 mg/dL (0.55-1.30); FREE T4 (FREE THYROXINE) 0.7 ng/dL (0.6-1.6); PHOSPHORUS 5.3 mg/dL (2.7-4.5); POTASSIUM 4.5 mmol/L (3.5-5.1); THYROID STIMULATING HORMONE 15.82 uIu/mL (0.34-4.82); TOTAL BILIRUBIN 0.4 mg/dL (0.0-1.0)
[2019-09-05] MEDS: ASCORBIC ACID 500 MG TABLET PO SCH (09:00)
[2019-09-05] MEDS: LACTULOSE 20 GM/30 ML UDC PO SCH ×3 (09:00→20:50)
[2019-09-05] MEDS: MEGESTROL ACETATE 400 MG/10 ML UDC PO SCH (09:00)
[2019-09-05] MEDS: MULTIVITS,CA,MINERALS/IRON/FA 1 TABLET PO SCH (09:00)
[2019-09-05] MEDS: NIACIN 500 MG CAPSULE.SA PO SCH ×2 (09:00→20:50)
[2019-09-05] MEDS: CHOLECALCIFEROL (VITAMIN D3) 2,000 UNIT TABLET PO SCH (09:00)
[2019-09-05 09:28] LABS: TOTAL IRON BIND. CAPACITY 258 ug/dL (250-450)
[2019-09-05 12:00] VITALS: BP_SYST 123
[2019-09-05 16:00] VITALS: BP_SYST 146
[2019-09-05 19:50] VITALS: BP_SYST 95
[2019-09-05] MEDS: cefTRIAXone 1 GM IVPB PREMIX 50 ML IV SCH (20:50)
[2019-09-05] MEDS: MIRTAZAPINE 15 MG TABLET PO SCH (20:51)
[2019-09-05] MEDS: ENOXAPARIN SODIUM 30 MG/0.3 ML SYRINGE SUBCUT SCH (20:53)
[2019-09-06] VITALS: BP_SYST 115
[2019-09-06] MEDS: 0.45% NS 500 ML IV SCH (00:45)
[2019-09-06 01:10] VITALS: BP_SYST 131
[2019-09-06] MEDS: 0.45% NACL 1,000 ML IV SCH ×3 (06:20→20:05)
[2019-09-06 07:00] LABS: BASOPHILS # (AUTO) 0.1 K/uL (0.0-0.2); BASOPHILS % (AUTO) 0.9 % (0.0-2.0); EOSINOPHILS # (AUTO) 0.4 K/uL (0.0-0.4); EOSINOPHILS % (AUTO) 6.6 % (0.0-4.0); HEMATOCRIT 28.7 % (36-48); HEMOGLOBIN 9.2 g/dL (12.0-16.0); LYMPHOCYTES # (AUTO) 1.6 K/uL (1.0-5.5); LYMPHOCYTES % (AUTO) 28.4 % (20.5-51.5); MEAN CORPUSCULAR HEMOGLOBIN 27 pg (27-31); MEAN CORPUSCULAR HGB CONC 32 % (32-36); MEAN CORPUSCULAR VOLUME 84 fL (79.0-98.0); MONOCYTES # (AUTO) 0.5 K/uL (0.0-1.0); MONOCYTES % (AUTO) 9.2 % (1.7-9.3); NEUTROPHILS # (AUTO) 3.2 K/uL (1.8-7.7); NEUTROPHILS % (AUTO) 54.9 % (40.0-70.0); PLATELET COUNT (AUTO) 128 K/uL (130-430); RED BLOOD CELL COUNT(AUTO) 3.41 MIL/uL (4.2-6.2); RED CELL DISTRIBUTION WIDTH 18.6 % (9.0-15.0); WHITE BLOOD COUNT (AUTO) 5.8 K/uL (4.8-10.8)
[2019-09-06] MEDS: LEVOTHYROXINE SODIUM 0.125 MG TABLET PO SCH (07:00)
[2019-09-06 07:01] LABS: CALCIUM 8.6 mg/dL (8.4-11.0); CREATININE 1.45 mg/dL (0.55-1.30); POTASSIUM 4.8 mmol/L (3.5-5.1)
[2019-09-06 08:00] VITALS: BP_SYST 97
[2019-09-06] MEDS: CHOLECALCIFEROL (VITAMIN D3) 2,000 UNIT TABLET PO SCH (10:28)
[2019-09-06] MEDS: ASCORBIC ACID 500 MG TABLET PO SCH (10:28)
[2019-09-06] MEDS: MULTIVITS,CA,MINERALS/IRON/FA 1 TABLET PO SCH (10:28)
[2019-09-06] MEDS: NIACIN 500 MG CAPSULE.SA PO SCH ×2 (10:28→20:04)
[2019-09-06] MEDS: DOXYCYCLINE HYCLATE 100 MG CAPSULE PO SCH ×2 (10:28→20:50)
[2019-09-06] MEDS: LACTULOSE 20 GM/30 ML UDC PO SCH ×3 (10:28→20:04)
[2019-09-06] MEDS: MEGESTROL ACETATE 400 MG/10 ML UDC PO SCH (10:28)
[2019-09-06 12:00] VITALS: BP_SYST 139
[2019-09-06] MEDS: INSULIN REGULAR, HUMAN 100 UNITS/ML, 10 ML VIAL (humuLIN R) SUBCUT PRN ×3 (14:07→20:52)
[2019-09-06 16:00] VITALS: BP_SYST 132
[2019-09-06 20:00] VITALS: BP_SYST 156
[2019-09-06] MEDS: cefTRIAXone 1 GM IVPB PREMIX 50 ML IV SCH (20:03)
[2019-09-06] MEDS: MIRTAZAPINE 15 MG TABLET PO SCH (20:04)
[2019-09-06] MEDS: ENOXAPARIN SODIUM 30 MG/0.3 ML SYRINGE SUBCUT SCH (20:05)
[2019-09-07] VITALS: BP_SYST 159
[2019-09-07] MEDS: ACETAMINOPHEN 325 MG TABLET PO PRN (03:26)
[2019-09-07] MEDS: LEVOTHYROXINE SODIUM 0.125 MG TABLET PO SCH (06:33)
[2019-09-07] MEDS: 0.45% NACL 1,000 ML IV SCH ×2 (06:34→18:20)
[2019-09-07] MEDS: INSULIN REGULAR, HUMAN 100 UNITS/ML, 10 ML VIAL (humuLIN R) SUBCUT PRN ×4 (06:35→21:50)
[2019-09-07 07:48] LABS: BASOPHILS % (AUTO) 0.6 % (0.0-2.0); EOSINOPHILS # (AUTO) 0.2 K/uL (0.0-0.4); EOSINOPHILS % (AUTO) 3.6 % (0.0-4.0); HEMATOCRIT 28.9 % (36-48); HEMOGLOBIN 9.4 g/dL (12.0-16.0); LYMPHOCYTES % (AUTO) 31.8 % (20.5-51.5); MEAN CORPUSCULAR HEMOGLOBIN 27 pg (27-31); MEAN CORPUSCULAR HGB CONC 32 % (32-36); MEAN CORPUSCULAR VOLUME 83 fL (79.0-98.0); MONOCYTES # (AUTO) 0.7 K/uL (0.0-1.0); MONOCYTES % (AUTO) 11.4 % (1.7-9.3); NEUTROPHILS # (AUTO) 3.4 K/uL (1.8-7.7); NEUTROPHILS % (AUTO) 52.6 % (40.0-70.0); PLATELET COUNT (AUTO) 119 K/uL (130-430); RED BLOOD CELL COUNT(AUTO) 3.47 MIL/uL (4.2-6.2); RED CELL DISTRIBUTION WIDTH 18.7 % (9.0-15.0); WHITE BLOOD COUNT (AUTO) 6.4 K/uL (4.8-10.8)
[2019-09-07 07:59] LABS: ALBUMIN 2.5 g/dL (3.4-4.8); CALCIUM 9.2 mg/dL (8.4-11.0); CREATININE 1.62 mg/dL (0.55-1.30); POTASSIUM 4.3 mmol/L (3.5-5.1); TOTAL BILIRUBIN 0.4 mg/dL (0.0-1.0)
[2019-09-07 08:00] VITALS: BP_SYST 114
[2019-09-07] MEDS: MULTIVITS,CA,MINERALS/IRON/FA 1 TABLET PO SCH (09:38)
[2019-09-07] MEDS: ASCORBIC ACID 500 MG TABLET PO SCH (09:38)
[2019-09-07] MEDS: DOXYCYCLINE HYCLATE 100 MG CAPSULE PO SCH ×2 (09:38→21:45)
[2019-09-07] MEDS: CHOLECALCIFEROL (VITAMIN D3) 2,000 UNIT TABLET PO SCH (09:38)
[2019-09-07] MEDS: LACTULOSE 20 GM/30 ML UDC PO SCH ×2 (09:38→14:55)
[2019-09-07] MEDS: NIACIN 500 MG CAPSULE.SA PO SCH (09:38)
[2019-09-07] MEDS: MEGESTROL ACETATE 400 MG/10 ML UDC PO SCH (09:38)
[2019-09-07 09:46] VITALS: BP_SYST 114
[2019-09-07 12:00] VITALS: BP_SYST 129
[2019-09-07 16:24] VITALS: BP_SYST 117
[2019-09-07] MEDS ORDERED: BALSAM PERU/CASTOR OIL 60 GM OINT...G. TP PRN (16:45)
[2019-09-07] MEDS: BALSAM PERU/CASTOR OIL 60 GM OINT...G. TP SCH (18:00)
[2019-09-07 21:45] VITALS: BP_SYST 140
[2019-09-07] MEDS: MIRTAZAPINE 15 MG TABLET PO SCH (21:45)
[2019-09-07] MEDS: ENOXAPARIN SODIUM 30 MG/0.3 ML SYRINGE SUBCUT SCH (21:45)
[2019-09-07] MEDS: cefTRIAXone 1 GM IVPB PREMIX 50 ML IV SCH (21:45)
[2019-09-08 02:20] VITALS: BP_SYST 132
[2019-09-08] MEDS: 0.45% NACL 1,000 ML IV SCH ×4 (04:01→21:17)
[2019-09-08] MEDS: LEVOTHYROXINE SODIUM 0.125 MG TABLET PO SCH (06:17)
[2019-09-08] MEDS: INSULIN REGULAR, HUMAN 100 UNITS/ML, 10 ML VIAL (humuLIN R) SUBCUT PRN ×4 (06:20→21:14)
[2019-09-08 06:53] LABS: BASOPHILS % (AUTO) 0.5 % (0.0-2.0); EOSINOPHILS # (AUTO) 0.3 K/uL (0.0-0.4); EOSINOPHILS % (AUTO) 3.9 % (0.0-4.0); HEMOGLOBIN 9.7 g/dL (12.0-16.0); LYMPHOCYTES # (AUTO) 2.3 K/uL (1.0-5.5); LYMPHOCYTES % (AUTO) 34.6 % (20.5-51.5); MEAN CORPUSCULAR HEMOGLOBIN 27 pg (27-31); MEAN CORPUSCULAR HGB CONC 33 % (32-36); MEAN CORPUSCULAR VOLUME 84 fL (79.0-98.0); MONOCYTES # (AUTO) 0.9 K/uL (0.0-1.0); MONOCYTES % (AUTO) 13.2 % (1.7-9.3); NEUTROPHILS # (AUTO) 3.2 K/uL (1.8-7.7); NEUTROPHILS % (AUTO) 47.8 % (40.0-70.0); PLATELET COUNT (AUTO) 113 K/uL (130-430); RED BLOOD CELL COUNT(AUTO) 3.59 MIL/uL (4.2-6.2); RED CELL DISTRIBUTION WIDTH 19.4 % (9.0-15.0); WHITE BLOOD COUNT (AUTO) 6.7 K/uL (4.8-10.8)
[2019-09-08 07:06] LABS: CREATININE 1.35 mg/dL (0.55-1.30); POTASSIUM 5.1 mmol/L (3.5-5.1)
[2019-09-08 07:55] VITALS: BP_SYST 140
[2019-09-08] MEDS: LACTULOSE 20 GM/30 ML UDC PO SCH (09:47)
[2019-09-08] MEDS: MEGESTROL ACETATE 400 MG/10 ML UDC PO SCH (09:48)
[2019-09-08] MEDS: MULTIVITS,CA,MINERALS/IRON/FA 1 TABLET PO SCH (09:48)
[2019-09-08] MEDS: DOXYCYCLINE HYCLATE 100 MG CAPSULE PO SCH ×2 (09:48→21:04)
[2019-09-08] MEDS: NIACIN 500 MG CAPSULE.SA PO SCH (09:48)
[2019-09-08] MEDS: CHOLECALCIFEROL (VITAMIN D3) 2,000 UNIT TABLET PO SCH (09:49)
[2019-09-08] MEDS: ASCORBIC ACID 500 MG TABLET PO SCH (09:49)
[2019-09-08] MEDS: BALSAM PERU/CASTOR OIL 60 GM OINT...G. TP SCH (09:49)
[2019-09-08 12:00] VITALS: BP_SYST 138
[2019-09-08] MEDS ORDERED: SODIUM POLYSTYRENE SULFONATE 15 GM/60 ML UDBTL PO ONE (14:30)
[2019-09-08 16:00] VITALS: BP_SYST 132
[2019-09-08] MEDS: REPAGLINIDE 1 MG TABLET (PRANDIN) PO SCH (18:38)
[2019-09-08 20:00] VITALS: BP_SYST 131
[2019-09-08] MEDS: cefTRIAXone 1 GM IVPB PREMIX 50 ML IV SCH (21:05)
[2019-09-08] MEDS: MIRTAZAPINE 15 MG TABLET PO SCH (21:05)
[2019-09-08] MEDS: ENOXAPARIN SODIUM 30 MG/0.3 ML SYRINGE SUBCUT SCH (21:13)
[2019-09-09 01:42] VITALS: BP_SYST 135
[2019-09-09 06:33] LABS: CALCIUM 8.8 mg/dL (8.4-11.0); CREATININE 1.04 mg/dL (0.55-1.30)
[2019-09-09 06:46] LABS: BASOPHILS % (AUTO) 0.7 % (0.0-2.0); EOSINOPHILS # (AUTO) 0.3 K/uL (0.0-0.4); EOSINOPHILS % (AUTO) 4.9 % (0.0-4.0); HEMATOCRIT 28.2 % (36-48); LYMPHOCYTES # (AUTO) 1.9 K/uL (1.0-5.5); LYMPHOCYTES % (AUTO) 33.3 % (20.5-51.5); MEAN CORPUSCULAR HEMOGLOBIN 27 pg (27-31); MEAN CORPUSCULAR HGB CONC 32 % (32-36); MEAN CORPUSCULAR VOLUME 84 fL (79.0-98.0); MONOCYTES # (AUTO) 0.6 K/uL (0.0-1.0); NEUTROPHILS # (AUTO) 2.9 K/uL (1.8-7.7); NEUTROPHILS % (AUTO) 50.1 % (40.0-70.0); PLATELET COUNT (AUTO) 104 K/uL (130-430); RED BLOOD CELL COUNT(AUTO) 3.37 MIL/uL (4.2-6.2); RED CELL DISTRIBUTION WIDTH 19.5 % (9.0-15.0); WHITE BLOOD COUNT (AUTO) 5.8 K/uL (4.8-10.8)
[2019-09-09] MEDS: LEVOTHYROXINE SODIUM 0.125 MG TABLET PO SCH (06:50)
[2019-09-09] MEDS: REPAGLINIDE 1 MG TABLET (PRANDIN) PO SCH ×2 (06:53→11:30)
[2019-09-09] MEDS: 0.45% NACL 1,000 ML IV SCH (08:46)
[2019-09-09] MEDS: LACTULOSE 20 GM/30 ML UDC PO SCH (08:48)
[2019-09-09] MEDS: CHOLECALCIFEROL (VITAMIN D3) 2,000 UNIT TABLET PO SCH (08:49)
[2019-09-09] MEDS: MULTIVITS,CA,MINERALS/IRON/FA 1 TABLET PO SCH (08:49)
[2019-09-09] MEDS: DOXYCYCLINE HYCLATE 100 MG CAPSULE PO SCH (08:49)
[2019-09-09] MEDS: NIACIN 500 MG CAPSULE.SA PO SCH (08:49)
[2019-09-09] MEDS: MEGESTROL ACETATE 400 MG/10 ML UDC PO SCH (08:49)
[2019-09-09] MEDS: ASCORBIC ACID 500 MG TABLET PO SCH (08:49)
[2019-09-09] MEDS: BALSAM PERU/CASTOR OIL 60 GM OINT...G. TP SCH (09:00)
[2019-09-09] MEDS: INSULIN REGULAR, HUMAN 100 UNITS/ML, 10 ML VIAL (humuLIN R) SUBCUT PRN (11:38)
[2019-09-09 12:46] VITALS: BP_SYST 139
[2019-09-09 14:37] VITALS: BP_SYST 139
[2019-09-09 16:14] VITALS: BP_SYST 138
== END 2019-09-09 16:25 | DRG 279 ==
LOC: SED 13:49 → EEVIPCON 13:49 → STU 18:32
PROVIDERS: ADMIT Internal Medicine; ATTEND Internal Medicine
PROC: 30233N1 Transfusion of Nonautologous Red Blood Cells into Peripheral Vein, Percutaneous Approach (ICD-10-PCS; principal; 2019-09-05)
DX: K72.90 Hepatic failure, unspecified without coma (principal); N17.0 Acute kidney failure with tubular necrosis; E43 Unspecified severe protein-calorie malnutrition; R65.11 Systemic inflammatory response syndrome (SIRS) of non-infectious origin with acute organ dysfunction; G93.41 Metabolic encephalopathy; E11.21 Type 2 diabetes mellitus with diabetic nephropathy; E86.0 Dehydration; E11.40 Type 2 diabetes mellitus with diabetic neuropathy, unspecified; N39.0 Urinary tract infection, site not specified; K74.60 Unspecified cirrhosis of liver; E03.9 Hypothyroidism, unspecified; D64.9 Anemia, unspecified; I10 Essential (primary) hypertension; E66.9 Obesity, unspecified; M19.90 Unspecified osteoarthritis, unspecified site; Z85.51 Personal history of malignant neoplasm of bladder; Z68.34 Body mass index [BMI] 34.0-34.9, adult; Z03.818 Encounter for observation for suspected exposure to other biological agents ruled out; Z79.899 Other long term (current) drug therapy; Z79.4 Long term (current) use of insulin
CPT/HCPCS: 36415; 36600; 71045; 76770; 80048; 80053; 80061; 81000-TC; 82140-TC; 82272; 82607; 82962; 83540-TC; 83550-TC; 83605; 83735-TC; 84100-TC; 84439; 84443-TC; 85025; 85610-TC; 86886; 86900; 86901; 86920; 87040-TC; 87081; 92610-GN; 93005; 96361; 96365; 96372; 96375; 97110-GP; 97530-GP; 99285; G0378; J0696; J1200; J1630; J1650; J1815; J1956; J7030; J7050; P9021; U0003-CS

== ENCOUNTER 2019-10-12 14:34 | Emergency (ER) | payer MEDICAID, SELFPAY ==
[~2019-10-12] VITALS: Ht 162.6 cm; Wt 99.8 kg
[~2019-10-12 14:34] MED LIST changes: +GABA600T PO; -GABA800T PO
[2019-10-12 14:43] VITALS: BP_SYST 111
--- NOTE | 2019-10-12 14:52 | NUR ---
Patient to ER bed 02 to gown for evaluation. Side rails up.
--- NOTE | 2019-10-12 14:54 | NUR ---
Patient brought in by ambulance in the ED for elevated Potassium and [facility] Denied any chest pain. Denied any fevers, chills, nausea or vomiting. Patient is alert and oriented x2 and audible wheezing noted. VSS, pain level 0/10. Informed of the approximate wait time. Instructed to notify ED staff for any changes in condition or worsening of symptoms while waiting to be seen by an ED provider. Patient verbalized understanding.
--- NOTE | 2019-10-12 14:58 | NUR ---
ER Dr. Cleveland at bedside examining patient.
--- NOTE | 2019-10-12 15:35 | NUR ---
# 20 gauge angiocath placed to LAC. Use of asceptic technique. Opsite placed over site. Blood return noted. Blood for lab drawn from site. Flushed with 10 cc of normal saline. No evidence of infiltration noted. Patient tolerated well.
[2019-10-12 15:36] LABS: BASOPHILS % (AUTO) 0.7 % (0.0-2.0); EOSINOPHILS # (AUTO) 0.3 K/uL (0.0-0.4); EOSINOPHILS % (AUTO) 4.9 % (0.0-4.0); HEMATOCRIT 22.7 % (36-48); HEMOGLOBIN 7.1 g/dL (12.0-16.0); LYMPHOCYTES # (AUTO) 1.7 K/uL (1.0-5.5); LYMPHOCYTES % (AUTO) 26.6 % (20.5-51.5); MEAN CORPUSCULAR HEMOGLOBIN 26 pg (27-31); MEAN CORPUSCULAR HGB CONC 31 % (32-36); MEAN CORPUSCULAR VOLUME 84 fL (79.0-98.0); MONOCYTES # (AUTO) 0.8 K/uL (0.0-1.0); MONOCYTES % (AUTO) 11.8 % (1.7-9.3); NEUTROPHILS # (AUTO) 3.6 K/uL (1.8-7.7); PLATELET COUNT (AUTO) 203 K/uL (130-430); RED CELL DISTRIBUTION WIDTH 19.8 % (9.0-15.0); WHITE BLOOD COUNT (AUTO) 6.5 K/uL (4.8-10.8)
[2019-10-12 15:50] LABS: CALCIUM 8.3 mg/dL (8.4-11.0); CREATININE 1.53 mg/dL (0.55-1.30); POTASSIUM 5.6 mmol/L (3.5-5.1)
[2019-10-12 15:56] LABS: ALBUMIN 1.9 g/dL (3.4-4.8); TOTAL BILIRUBIN 0.2 mg/dL (0.0-1.0)
[2019-10-12] MEDS ORDERED: SODIUM ZIRCONIUM CYCLOSILICATE 10 GM POWD.PACK PO ONE (16:00)
--- NOTE | 2019-10-12 16:10 | NUR ---
Administered LOKELMA 10G PO as ordered by Dr. Cleveland. Patient tolerated the medications well. See eMAR for details.
--- NOTE | 2019-10-12 16:57 | NUR ---
Spoke with MARJORIE Estrada of [facility]. Informed her that the patient is discharged and will be there in 35mins.
[2019-10-12 17:54] VITALS: BP_SYST 127
== END 2019-10-12 17:54 ==
LOC: SED 14:34
DX: E87.6 Hypokalemia (principal); D64.9 Anemia, unspecified; E11.29 Type 2 diabetes mellitus with other diabetic kidney complication; N28.9 Disorder of kidney and ureter, unspecified; I10 Essential (primary) hypertension; E07.9 Disorder of thyroid, unspecified; Z85.51 Personal history of malignant neoplasm of bladder; Z79.899 Other long term (current) drug therapy; Z79.4 Long term (current) use of insulin
CPT/HCPCS: 36415; 71045; 80053; 82550-TC; 83880; 84484; 85025; 93005; 99285

== ENCOUNTER 2020-01-03 08:35 | Inpatient (IN) | payer MEDICAID, SELFPAY ==
[~2020-01-03] VITALS: Ht 152.4 cm; Wt 88.9 kg
[2020-01-03] VITALS (16 sets, daily range): BP systolic 75–137
--- NOTE | 2020-01-03 08:35 | NUR ---
Patient to ER bed 7 to gown for evaluation. Side rails up. Report given to Paulo AMADOR.
--- NOTE | 2020-01-03 08:35 | NUR ---
EKG done and given to
--- NOTE | 2020-01-03 08:38 | NUR ---
ER at bedside examining patient.
--- NOTE | 2020-01-03 08:40 | NUR ---
# 22 gauge angiocath placed to Left chest. Use of asceptic technique. Opsite placed over site. Blood return noted. Blood for lab drawn from site. Flushed with 10 cc of normal saline. No evidence of infiltration noted. Patient tolerated well.
[2020-01-03] MEDS ORDERED: NS 1000 ML IV.SOLN IV ONE (08:45)
[2020-01-03] MEDS ORDERED: ACETAMINOPHEN 325 MG SUPP.RECT RC ONE ×2 (08:45→09:00)
[2020-01-03] MEDS ORDERED: cefTRIAXone 1 GM IVPB PREMIX 50 ML IV ONE (08:45)
--- NOTE | 2020-01-03 08:45 | NUR ---
Pt came to ER for ALOC, pt presents with fever 102.5, GCS 9, O2 WNL on hi flow. Pt confused responsive to painful stimuli, VSS, resting in gurney
--- NOTE | 2020-01-03 09:00 | NUR ---
# 16 FR Crystal catheter with use of sterile technique. Immediate return of 30 cc cloudy urine noted. Bedside drainage bag placed below level of bladder. Urine sample collected and sent to lab. Pt tolerated procedure well. Patient arrived with crystal in place, changed due to standard of practice prior to admission. Patient unable to toilet self.
[2020-01-03 09:10] LABS: BASOPHILS % (AUTO) 0.4 % (0.0-2.0); EOSINOPHILS # (AUTO) 0.1 K/uL (0.0-0.4); EOSINOPHILS % (AUTO) 0.6 % (0.0-4.0); HEMATOCRIT 31.5 % (36-48); HEMOGLOBIN 10.1 g/dL (12.0-16.0); LYMPHOCYTES % (AUTO) 7.4 % (20.5-51.5); MEAN CORPUSCULAR HEMOGLOBIN 29 pg (27-31); MEAN CORPUSCULAR HGB CONC 32 % (32-36); MEAN CORPUSCULAR VOLUME 90 fL (79.0-98.0); MONOCYTES # (AUTO) 0.5 K/uL (0.0-1.0); MONOCYTES % (AUTO) 4.1 % (1.7-9.3); NEUTROPHILS # (AUTO) 11.8 K/uL (1.8-7.7); NEUTROPHILS % (AUTO) 87.5 % (40.0-70.0); PLATELET COUNT (AUTO) 82 K/uL (130-430); RED BLOOD CELL COUNT(AUTO) 3.52 MIL/uL (4.2-6.2); RED CELL DISTRIBUTION WIDTH 21.1 % (9.0-15.0); WHITE BLOOD COUNT (AUTO) 13.4 K/uL (4.8-10.8)
[2020-01-03 09:21] LABS: CALCIUM 9.2 mg/dL (8.4-11.0); CREATININE 1.2 mg/dL (0.55-1.30)
[2020-01-03 09:27] LABS: TOTAL BILIRUBIN 0.7 mg/dL (0.0-1.0)
[2020-01-03 09:29] LABS: BILIRUBIN,URINE NEGATIVE (NEGATIVE); BLOOD, URINE 3+ (NEGATIVE); CLARITY/URINE SL CLOUDY (CLEAR); COLOR,URINE YELLOW (YELLOW); GLUCOSE,URINE NEGATIVE (NEGATIVE); KETONES,URINE NEGATIVE (NEGATIVE); LEUKOCYTE ESTERASE ,URINE 3+ (NEGATIVE); NITRITE, URINE POSITIVE (NEGATIVE); PROTEIN URINE 2+ (NEGATIVE); UROBILINOGEN,URINE 0.2 (0.2-1.0)
--- NOTE | 2020-01-03 09:36 | NUR ---
Attempt to titrate down down off high flow oxgygen, pt is placed on 3L via nasal cannula tolerating well will ocnitinue to monitor.
[2020-01-03] MEDS ORDERED: FLEETMO RC (09:37)
[2020-01-03] MEDS ORDERED: FERR236T3 PO (09:37)
[2020-01-03] MEDS ORDERED: ACET-73 PO (09:37)
[2020-01-03 09:44] LABS: BACTERIA,URINE MANY /HPF (None Seen); RBC,URINE 20-50 /HPF (0-3); WBC,URINE 20-50 /HPF (0-3)
--- NOTE | 2020-01-03 09:46 | NUR ---
PER ED ADMITTING, NURA FROM [facility] GAVE AUTH TO ADMIT. REQUESTED FAX OF CLINICALS AND FACESHEET. FAX: [phone] AUTH #: [id number]
--- NOTE | 2020-01-03 10:42 | NUR ---
Patient will be admitted to [facility]. Admitted to ICU unit. Will go to room 5. Belongings list completed. Complete and up to date summary report printed. SBAR report to be given at bedside with opportunity for questions.
[2020-01-03 10:59] LABS: INR 1.2 (0.8-1.2)
[2020-01-03] MEDS ORDERED: IPRATROPIUM/ALBUTEROL SULFATE 3 ML AMPUL.NEB (DUONEB) INH PRN (11:00)
[2020-01-03] MEDS ORDERED: MINERAL OIL 133 ML ENEMA RC PRN (11:00)
[2020-01-03] MEDS ORDERED: MULTIVITAMINS TAB 1 TABLET PO ONE (11:00)
[2020-01-03] MEDS ORDERED: METOCLOPRAMIDE HCL 10 MG TABLET PO ONE (11:00)
[2020-01-03] MEDS ORDERED: BISACODYL 10 MG/SUPPOSITORY RC PRN (11:00)
[2020-01-03] MEDS ORDERED: ACETAMINOPHEN 325 MG TABLET PO PRN (11:00)
[2020-01-03] MEDS ORDERED: ASCORBIC ACID 500 MG TABLET PO ONE (11:00)
[2020-01-03] MEDS ORDERED: LEVOTHYROXINE SODIUM 0.15 MG TABLET PO ONE (11:00)
[2020-01-03] MEDS ORDERED: DOCUSATE SODIUM 100 MG CAPSULE PO PRN (11:00)
--- NOTE | 2020-01-03 11:00 | NUR ---
Noted pt with rectal temp 101.5. Placed ice packs for cooling measures. Tylenol given in ER.
--- NOTE | 2020-01-03 11:09 | NUR ---
Admission Note Received patient from ER with diagnosis of UTI/hypotension. Initial Plan of Care discussed-patient unable to verbalize understanding. Patient is moaning, not responding to questions. Situated patient to room and call light. No belongings with patient.
[2020-01-03] MEDS ORDERED: LACTULOSE 20 GM/30 ML UDC PO ONE (11:15)
--- NOTE | 2020-01-03 11:27 | NUR ---
CONSULTATION PAGED/CALLED Reason for Consultation: GI Person Who was Notified: JAVAD Consulting Physician: JOSÉ LUIS Rail Car Repairer Specialty: GI Ordering Physician: SHADE
[2020-01-03] MEDS ORDERED: NIACIN 500 MG CAPSULE.SA PO ONE (11:30)
--- NOTE | 2020-01-03 11:32 | NUR ---
CONSULTATION PAGED/CALLED Reason for Consultation: SEPSIS Person Who was Notified: EFFIE Consulting Physician: DR KIDD Farm Machinery Engine Mechanic Specialty: ID Ordering Physician: SHADE KIDD IS BACKER UP FOR [facility]
--- NOTE | 2020-01-03 12:10 | NUR ---
Pt noted with temp 98. Pt still not answering questions but was able to eat lunch tray with total assist and tolerated well.
--- NOTE | 2020-01-03 12:35 | NUR ---
Informed Arabella Vargas, pt's daughter, regarding pt's status and obtained consent for midline placement. Arabella states that pt is DNR with POLST.
[2020-01-03] MEDS: INSULIN REGULAR, HUMAN 100 UNITS/ML, 10 ML VIAL (humuLIN R) SUBCUT PRN ×3 (12:59→22:36)
--- NOTE | 2020-01-03 14:00 | NUR ---
IV PLACEMENT: # 22 gauge angiocath placed to right FA. Use of asceptic technique. Opsite placed over site. Blood return noted. Flushed with 10 cc of normal saline. No evidence of infiltration noted. Patient tolerated well.
[2020-01-03] MEDS ORDERED: RIFAXIMIN 550 MG TABLET PO ONE (14:15)
[2020-01-03] MEDS: LACTULOSE 20 GM/30 ML UDC PO SCH ×2 (15:00→21:00)
--- NOTE | 2020-01-03 15:30 | NUR ---
Dr. Tay assessing pt at bedside.
--- NOTE | 2020-01-03 15:40 | NUR ---
Dr. Rojas at bedside assessing pt. New orders made.
--- NOTE | 2020-01-03 16:00 | NUR ---
Administered 1L NS bolus per Dr. Rojas's orders. Pt tolerating well.
[2020-01-03] MEDS: PIPERACILLIN/TAZO 3.375/DEX-IS 50 ML IV SCH ×2 (16:28→22:13)
[2020-01-03] MEDS ORDERED: NACL 0.9% 1,000 ML IV ONE (17:00)
[2020-01-03] MEDS: NACL 0.9% 1,000 ML IV SCH ×2 (17:00→20:30)
--- NOTE | 2020-01-03 17:00 | NUR ---
Noted pt desaturating with 2L O2 NC to 85% and rhonchi. Increased O2 to 5L NC, saturating 93%. Also performed suctioning, less than 1 ml of white secretions suctioned. Tolerated well.
[2020-01-03] MEDS: ACETAMINOPHEN 500 MG TABLET PO PRN (17:47)
--- NOTE | 2020-01-03 18:00 | NUR ---
Pt opened eyes but still lethargic/drowsy. Only able to answer simple commands regarding food and does not answer other questions. Fed with dinner tray. Tolerated well.
--- NOTE | 2020-01-03 18:45 | NUR ---
PICC line nurse present at bedside inserting midline. Consent given by pt's daughter, signed and placed in chart.
--- NOTE | 2020-01-03 19:30 | NUR ---
Opening note Received report from dayshift nurse and assumed care. Patient resting in bed and responding to verbal commands. Drowsy and weak, requires assistance for turning and repositioning. Moaning when manipulated for turning but regarding pain reports only "everywhere". New Midline present and patent; patient still has right arm and left chest IV access patent. Rangel catheter in place and draining to gravity. O2 nasal canula in place at 2 L/min with saturations 96%. Blood pressure noted to be borderline low 90/42. Will continue to monitor patient for need of vasopressors.
--- NOTE | 2020-01-03 19:30 | NUR ---
Closing Endorsed plan of care to caustic cresylate shift superintendent RN. Pt resting comfortably in bed, equal chest rise and fall. No acute distress noted.
[2020-01-03] MEDS: METOCLOPRAMIDE HCL 10 MG TABLET PO SCH (21:00)
[2020-01-03] MEDS: NIACIN 500 MG CAPSULE.SA PO SCH (21:00)
[2020-01-03] MEDS: RIFAXIMIN 550 MG TABLET PO SCH (21:00)
--- NOTE | 2020-01-03 21:30 | NUR ---
Patient too weak and still drowsy; not following commands enough to swallow PO medications. Will skip Po medications at this time.
[2020-01-04] VITALS (19 sets, daily range): BP systolic 91–136
--- NOTE | 2020-01-04 00:20 | NUR ---
Assessment completed and patient repositioned for comfort. Continues to moan during this process. Reported left shoulder pain but unable to rate.
--- NOTE | 2020-01-04 03:32 | NUR ---
Resting comfortably at this time. No moaning noted.
[2020-01-04] MEDS: PIPERACILLIN/TAZO 3.375/DEX-IS 50 ML IV SCH ×2 (03:48→09:33)
[2020-01-04 06:19] LABS: BASOPHILS % (AUTO) 0.2 % (0.0-2.0); EOSINOPHILS # (AUTO) 0.2 K/uL (0.0-0.4); EOSINOPHILS % (AUTO) 1.3 % (0.0-4.0); HEMATOCRIT 26.5 % (36-48); HEMOGLOBIN 8.4 g/dL (12.0-16.0); MEAN CORPUSCULAR HEMOGLOBIN 29 pg (27-31); MEAN CORPUSCULAR HGB CONC 32 % (32-36); MEAN CORPUSCULAR VOLUME 91 fL (79.0-98.0); MONOCYTES # (AUTO) 0.9 K/uL (0.0-1.0); MONOCYTES % (AUTO) 6.2 % (1.7-9.3); NEUTROPHILS # (AUTO) 12.1 K/uL (1.8-7.7); NEUTROPHILS % (AUTO) 79.3 % (40.0-70.0); PLATELET COUNT (AUTO) 64 K/uL (130-430); RED BLOOD CELL COUNT(AUTO) 2.91 MIL/uL (4.2-6.2); RED CELL DISTRIBUTION WIDTH 21.4 % (9.0-15.0); WHITE BLOOD COUNT (AUTO) 15.3 K/uL (4.8-10.8)
[2020-01-04] MEDS: NACL 0.9% 1,000 ML IV SCH (06:20)
[2020-01-04] MEDS: LEVOTHYROXINE SODIUM 0.15 MG TABLET PO SCH (06:22)
[2020-01-04] MEDS: INSULIN REGULAR, HUMAN 100 UNITS/ML, 10 ML VIAL (humuLIN R) SUBCUT PRN ×4 (06:40→21:29)
[2020-01-04 06:51] LABS: ALBUMIN 2.3 g/dL (3.4-4.8); CALCIUM 8.6 mg/dL (8.4-11.0); CREATININE 1.53 mg/dL (0.55-1.30); POTASSIUM 4.8 mmol/L (3.5-5.1); TOTAL BILIRUBIN 0.8 mg/dL (0.0-1.0)
--- NOTE | 2020-01-04 07:30 | NUR ---
Opening Note Received bedside report from endorsing RN for continuation of care. Received patient awake and confused in bed, no signs or symptoms of acute distress noted. Bed locked in lowest position, bed alarm on, and call light within reach. Fall and safety precautions in place.
--- NOTE | 2020-01-04 07:52 | NUR ---
Dr. Odom (GI) at bedside examining patient. New orders received for full liquid diet.
--- NOTE | 2020-01-04 08:37 | NUR ---
Nutrition Update Herb Scale 11 noted. Pt admitted for UTI, Hypotension Diet: Full liquid BMI: 38.3 kg/m2 RD to follow per nutrition care standards.
--- NOTE | 2020-01-04 09:19 | NUR ---
Dr. Cullen ([facility]) at bedside examining patient. New orders received for Lactated Ringers. Addendum: 01/04/20 at 1121 by Stephany Chan RN New orders received for SCDs.
[2020-01-04] MEDS: RIFAXIMIN 550 MG TABLET PO SCH ×2 (09:34→21:13)
[2020-01-04] MEDS: MULTIVITAMINS TAB 1 TABLET PO SCH (09:34)
[2020-01-04] MEDS: LACTULOSE 20 GM/30 ML UDC PO SCH ×3 (09:34→21:11)
[2020-01-04] MEDS: METOCLOPRAMIDE HCL 10 MG TABLET PO SCH ×2 (09:34→21:13)
[2020-01-04] MEDS: ASCORBIC ACID 500 MG TABLET PO SCH (09:34)
[2020-01-04] MEDS: NIACIN 500 MG CAPSULE.SA PO SCH ×2 (09:35→21:13)
[2020-01-04] MEDS: LR 1,000 ML IV SCH ×2 (09:36→23:15)
--- NOTE | 2020-01-04 10:20 | NUR ---
Dr. Murillo ([facility]ARD[facility]) at bedside examining patient. New orders received.
--- NOTE | 2020-01-04 11:51 | NUR ---
Dr. Lyles (ID) at bedside examining patient. New orders received.
[2020-01-04] MEDS ORDERED: FLU VACC QS2020-21(65UP)/PF 0.7 ML/SYRINGE I.M. PRN (12:00)
--- NOTE | 2020-01-04 13:50 | NUR ---
WOUND EVALUATION: Late note for 1350 secondary to patient care. Wound Consult received from Dr. Fitzgerald. Thank you Dr. Fitzgerald for the consult. Patient received in a Gay Bed with an IsoFlex RON mattress with low air loss therapy, awake, drowsy, confused. Patient is unable to turn in bed independently. Herb Score is an 11. Past Medical History: Hypothyroidism, Diabetes Mellitus, Hypertension, Renal Disease, Thyroid Disease, history of Liver Cancer, Bladder Cancer (with surgery), Colon Cancer, Liver Cirrhosis, Obesity, recent COVID-19 infection, Anemia, Diabetic Nephropathy, Diabetic Neuropathy. Recent Labs: WBC 15.3, RBC 2.91, hemoglobin 8.4, hematocrit 26.5, platelets 64, chloride 109, BUN 44, creatinine 1.53, GFR 36, glucose 175, POC glucose 178, AST 55, alkaline phosphatase 185, ammonia 43, albumin 2.3. Microbiology: Blood culture results x2 in progress. MRSA screen results in progress. Urine culture results in progress. Intrinsic factors that delay wound healing: Diabetes Mellitus, Renal Disease, Liver Cancer, Colon Cancer, Liver Cirrhosis, Hypoalbuminemia. Extrinsic factors that delay wound healing: Immobility. Wound Assessment: 1. Left Sacral area: Scar tissue, present on admission. Area has IAD with blanchable red erythema and MASD with non-intact area with 100% red tissue. No odor, no drainage. Michelle-site intact. Surrounding tissue has dark discolored skin and scar tissue. Non-intact area measures 0.2 cm x 0.2 cm. 2. Right Sacral area: Scar tissue, present on admission. Area has IAD with blanchable red erythema and MASD with non-intact area with 100% red tissue. No odor, no drainage. Michelle-site intact. Surrounding tissue has dark discolored skin and scar tissue. Non-intact area measures 0.2 cm x 0.2 cm. Recommend: Cleanse sites with normal saline. Pat dry. Apply Calmoseptine cream cream to non-intact skin and apply Hydraguard barrier cream to dry skin on surrounding areas. Apply Hydrogel to any non-intact skin areas not covered by Calmoseptine cream if needed. Cover site with Sacral foam dressing. Perform site care daily, and as needed for dressing soiling or dislodgment. 3. Bilateral Inguinal areas: Erythema from IAD, present on admission. No odor, skin is moist. Recommend: Cleanse involved areas with mild soap and water. Pat dry. Apply Calmoseptine cream to erythematous areas. Perform site care 4 times daily as needed for soiling. 4. Right Axillary area: Erythema from IAD and dry, flaky skin, present on admission. No odor, no drainage. Recommend: Cleanse site with mild soap and water. Apply Hydraguard barrier cream to dry and scaly skin areas. Apply antifungal powder to erythematous areas. Dust off excess powder. Cut inter-dry AG cloth to size and place underneath bilateral axillary areas. Perform site care twice daily, and every 5 days and as needed for cloth soiling or dislodgement. Also recommend: Reposition patient side to side only every 2 hours with pillow support and off-load pressure areas with pillows for pressure re-distribution. Offload, elevate and float bilateral heels with one pillow lengthwise under each extremity at all times. Perform skin care and monitor skin integrity Q shift. Use Calmoseptine cream on buttocks and other moisture susceptible areas QID and as needed for soiling, and use Hydraguard barrier cream to dry and scaly skin areas BID. Maintain patient on low air-loss therapy.
[2020-01-04] MEDS ORDERED: MENTHOL/ZINC OXIDE 113 GM OINT. TP PRN (14:45)
--- NOTE | 2020-01-04 15:38 | NUR ---
Telemetry Status Spoke with Dr. Hansen on the phone. Per Dr. Hansen, patient is stable to transfer to telemetry unit. Patient will remain in ICU and be monitored as telemetry status until hospital room and bed become available.
[2020-01-04] MEDS: NYSTATIN 15 GM TOPICAL POWDER TP SCH ×2 (17:12→21:14)
--- NOTE | 2020-01-04 17:34 | NUR ---
Transfer to Telemetry Patient transferred to telemetry unit room 134-B on hospital bed, on continuous cardiac technologist, accompanied by ACLS RN. No signs or symptoms of acute distress noted. Endorsed bedside report to Janine AMADOR using SBAR approach for continuation of care.
--- NOTE | 2020-01-04 17:40 | NUR ---
Opening Note Patient transferred to 134B from ICU. Patient a/ox self, patient requesting to speak to her mother who is 42 years old. Patient reoriented to hospital settings. Right forearm IV flushed and patent. Patient receiving IV fluids through left upper arm midline. Indwelling crystal inplace, crystal locked and secure to leg. Patient has no complaints at this time and is moaning/crying. When asked what is wrong, patient states, "I don't want to talk to you, you make fun of me." Primary RN provided patient with some water. Patient requires assistance drinking/eating. Bed in low and locked position, side rails up x3, call light within reach, bed alarm on.
--- NOTE | 2020-01-04 18:00 | NUR ---
Linen Change Patient had 1 bowel movement. Stool is watery and brown. Changed linens, cleaned patient and applied z-guard
--- NOTE | 2020-01-04 18:39 | NUR ---
Closing Note Patient in bed, eyes closed, responds to verbal stimuli, A/Ox3, to self, place and birthday. Denies complaints at this time. IV fluids running through left upper arm midline at 75 ml/hr. Patient's crystal inplace. Bed in low and locked position, side rails up x3, call light within reach, bed alarm on. SCDs applied. Will endorse care to NOC RN.
--- NOTE | 2020-01-04 18:55 | NUR ---
Linen Change Patient incontinent to stool. Stool watery and brown. Patient cleaned and linens changed. z-guard applied.
--- NOTE | 2020-01-04 19:25 | NUR ---
CHANGE OF SHIFT; pt. awake, crying, wants her mother to know that she is here in the hospital. informed her will call later. oriented to room. HOB elevated, no distress. on fall risk precaution, bed alarm on, call light at bedside.
--- NOTE | 2020-01-04 19:56 | NUR ---
NOTES: pt. still crying, called [facility] and spoke to nurse Natalie to make sure Arabella knows pt. is here and said she was informed and told pt., still wants to talk to nurse, reassured. VS checked. IVF infusing via PICC line on left upper arm. noted both upper arms pretty swollen. IV lock on rt. arm. crystal cath to osd, equipment monitor phototypesetting on and shows sinus rhythm. bed alarm on.
[2020-01-04] MEDS: CEFEPIME 0.5 GM in D5W 50 ML IV SCH (20:39)
--- NOTE | 2020-01-04 21:00 | NUR ---
NOTES: Dr. Hansen here, seen pt. , updated on pt. condition. pt. remains crying, already told her I did call [facility] to inform her family.
[2020-01-04] MEDS: metroNIDAZOLE 500 mg/NS 100 ML IV SCH (21:32)
--- NOTE | 2020-01-04 22:00 | NUR ---
NOTES: pt. able to take her medications, HOB elevated, still on Lactulose. had another BM , may care done and repositioned.
--- NOTE | 2020-01-04 23:30 | NUR ---
NOTES; pt. checked and sleeping, stopped crying. condition guarded.
[2020-01-05] VITALS: BP_SYST 108
--- NOTE | 2020-01-05 01:01 | NUR ---
NOTES: pt. awakened, wants to be clean, had another bowel movement.
--- NOTE | 2020-01-05 01:30 | NUR ---
NOTES: complete linen changed and may care done. sacral foam dressing changed. crystal intact. IVF continuous. repositioned.
[2020-01-05] MEDS: ACETAMINOPHEN 500 MG TABLET PO PRN (01:34)
--- NOTE | 2020-01-05 01:35 | NUR ---
NOTES: pt. c/o generalized pain, medicated with Extra strength Tylenol, only 1 pill taken instead of 2. turn to sides. cardiac pattern unchanged. call light within reach.
--- NOTE | 2020-01-05 02:30 | NUR ---
NOTES: pt. noted relief and sleeping.
--- NOTE | 2020-01-05 04:00 | NUR ---
NOTES: condition observed, continue to monitor. pt. remain sleeping. no distress.
--- NOTE | 2020-01-05 05:45 | NUR ---
NOTES; partial am care/may care. repositioned. had another bm. kept clean and dry.
[2020-01-05] MEDS: LEVOTHYROXINE SODIUM 0.15 MG TABLET PO SCH (05:53)
--- NOTE | 2020-01-05 06:40 | NUR ---
CLOSING NOTES; BS checked, IVF continuous vial midline cath on left upper arm. crystal cath intact. bed alarm on, on fall risk precaution. due medication given. for further care and assistance. no distress, on room air.
--- NOTE | 2020-01-05 07:30 | NUR ---
Opening Note Report received from NOC RN. Patient found in bed, A/Ox3, speaking in full, complete sentences. Patient denies pain at this time but reports feeling itchy on her skin. NAD. Respirations even and unlabored. Peripheral IV to right forearm flushed and patent, BÁRBARA midline patent. LR at 75 ml/hr infusing through BÁRBARA midline. Indwelling crystal intact and secured to right upper thigh. Bed in low and locked position, side rails up x3, call light within reach, bed alarm on.
[2020-01-05 08:00] VITALS: BP_SYST 145
[2020-01-05] MEDS: METOCLOPRAMIDE HCL 10 MG TABLET PO SCH ×2 (09:05→20:52)
[2020-01-05] MEDS: LACTULOSE 20 GM/30 ML UDC PO SCH ×3 (09:05→20:51)
[2020-01-05] MEDS: NIACIN 500 MG CAPSULE.SA PO SCH ×2 (09:05→22:25)
[2020-01-05] MEDS: ASCORBIC ACID 500 MG TABLET PO SCH (09:05)
[2020-01-05] MEDS: BALSAM PERU/CASTOR OIL 60 GM OINT...G. TP SCH (09:05)
[2020-01-05] MEDS: RIFAXIMIN 550 MG TABLET PO SCH ×2 (09:05→20:52)
[2020-01-05] MEDS: NYSTATIN 15 GM TOPICAL POWDER TP SCH ×2 (09:05→21:01)
[2020-01-05] MEDS: metroNIDAZOLE 500 mg/NS 100 ML IV SCH (09:05)
[2020-01-05] MEDS: MULTIVITAMINS TAB 1 TABLET PO SCH (09:05)
--- NOTE | 2020-01-05 09:30 | NUR ---
Linen Change Patient incontinent to stool. Stool is watery and brown. Large amount noted in bed with stool seeping through SCDs. Patient cleaned and linens changed. Ointments applied to patient's skin per wound care orders. MD Hansen paged for request for flexiseal order.
--- NOTE | 2020-01-05 09:43 | NUR ---
Critical Lab received critical lab results MRSA nares positive, paged Dr. Lyles, awaiting call back, endorsed critical lab to primary MARJORIE Palacios.
[2020-01-05] MEDS: CEFEPIME 0.5 GM in D5W 50 ML IV SCH (09:52)
[2020-01-05] MEDS: INSULIN REGULAR, HUMAN 100 UNITS/ML, 10 ML VIAL (humuLIN R) SUBCUT PRN ×3 (11:37→22:23)
[2020-01-05 11:47] VITALS: BP_SYST 151
--- NOTE | 2020-01-05 12:13 | NUR ---
Critical lab spoke with Dr. Lyles, informed him of critical lab MRSA nares positive, no new orders, informed primary RN Suzanne.
--- NOTE | 2020-01-05 13:19 | NUR ---
Dietitian Recommendations *Recommend: Mechanical soft CCHO diet. *Encourage pt to increase PO intake. *Consider to add ONS if PO intake does not improve w/ solid food intake. Please see Nutritional Assessment for details. HUSSEIN DORMAN
--- NOTE | 2020-01-05 14:30 | NUR ---
Linen Change Patient incontinent to stool. Stool is brown and watery. Chux changed and patient cleaned with soap and water. Calmoseptine and hydroguard applied. Patient's sacral dressing replaced. Patient tolerated procedure well.
[2020-01-05] MEDS: LR 1,000 ML IV SCH (15:00)
[2020-01-05 15:39] VITALS: BP_SYST 146
--- NOTE | 2020-01-05 16:00 | NUR ---
Rounding Patient sleeping in bed, respirations even and unlabored, NAD. Call light within reach, bed in low and locked position, side rails up x3, bed alarm on.
--- NOTE | 2020-01-05 18:35 | NUR ---
Closing Note Patient in bed, NAD. Patient crying, stating that she wants to speak with her daughter. Primary RN used phone numbers provided in contact sheet and left voicemail for patient's daughter. IV fluids running through left upper arm midline. Rangel catheter in place and patent. Patient denies bowel movement at this time and is clean. Bed in low and locked position, side rails up x 3, call light within reach, bed alarm on, SCDs on. Will endorse care to NOC RN.
--- NOTE | 2020-01-05 19:30 | NUR ---
CHANGE OF SHIFT; pt. resting when checked, no acute distress. on contact isolation for MRSA nares, MDRO /E.coli of urine. on fall risk precaution. unable to use call light.
--- NOTE | 2020-01-05 20:30 | NUR ---
NOTES: pt. asleep when checked. IVF infusing via let arm with mid line. both upper extremities swollen. IV lock on rt. forearm. on room air. VS checked. on registered nurse cardiac telemetry and shows sinus rhythm. crystal cath to osd. skin irritation both groin, sacral foam dressing intact. on contact isolation fro MRSA nares /E coli on urine MDRO.
[2020-01-05 20:45] VITALS: BP_SYST 141
[2020-01-05] MEDS: MEGESTROL ACETATE 400 MG/10 ML UDC PO SCH (20:51)
[2020-01-05] MEDS: ERTAPENEM SODIUM 0.5 GM in NS 50 ML IV SCH (20:52)
--- NOTE | 2020-01-05 21:00 | NUR ---
NOTES: due po medications taken well including Lactulose. repositioned. HOB elevated.
--- NOTE | 2020-01-05 22:00 | NUR ---
NOTES: BS checked 226 with sliding scale coverage. no complaints noted.
--- NOTE | 2020-01-05 23:30 | NUR ---
NOTES: pt. awakened, complete hs care/may care, had large amt. of brown loose stool due to lactulose. pt. repositioned. observed contact isolation. pt. needs attended.
[2020-01-06] VITALS: BP_SYST 151
--- NOTE | 2020-01-06 00:11 | NUR ---
NOTES: pt. sleeping when rechecked. cardiac pattern unchanged. Vs rechecked by JOSEPH Collins. observed isolation.
--- NOTE | 2020-01-06 02:30 | NUR ---
NOTES: pt. sleeping when checked. condition observed. IVF infusing.
--- NOTE | 2020-01-06 04:00 | NUR ---
NOTES: made rounds, pt. remain sleeping. condition observed, continue to monitor.
[2020-01-06] MEDS: LR 1,000 ML IV SCH ×2 (04:13→18:02)
--- NOTE | 2020-01-06 05:15 | NUR ---
NOTES: had another BM, partial am care/may care done, sacral dressing intact. calmoseptine on skin irritation. AG cloth on both axilla. repositioned and turn to sides. generalized edema noted, keep heels off bed.
[2020-01-06] MEDS: LEVOTHYROXINE SODIUM 0.15 MG TABLET PO SCH (06:11)
--- NOTE | 2020-01-06 06:38 | NUR ---
CLOSING NOTES; pt. crying again, looking for her daughter, wants to go back where she came from [facility]. BS checked 170 with sliding scale coverage. for further care and assistance. IVF patent. marah walker to OSD. contact isolation observed. on fall risk. will endorsed to incoming shift .
[2020-01-06 07:04] LABS: BASOPHILS % (AUTO) 0.6 % (0.0-2.0); EOSINOPHILS # (AUTO) 0.2 K/uL (0.0-0.4); EOSINOPHILS % (AUTO) 3.4 % (0.0-4.0); HEMOGLOBIN 8.5 g/dL (12.0-16.0); LYMPHOCYTES # (AUTO) 1.6 K/uL (1.0-5.5); MEAN CORPUSCULAR HEMOGLOBIN 29 pg (27-31); MEAN CORPUSCULAR HGB CONC 33 % (32-36); MEAN CORPUSCULAR VOLUME 90 fL (79.0-98.0); MONOCYTES # (AUTO) 0.3 K/uL (0.0-1.0); MONOCYTES % (AUTO) 4.7 % (1.7-9.3); NEUTROPHILS # (AUTO) 3.7 K/uL (1.8-7.7); NEUTROPHILS % (AUTO) 64.3 % (40.0-70.0); PLATELET COUNT (AUTO) 67 K/uL (130-430); RED CELL DISTRIBUTION WIDTH 21.3 % (9.0-15.0); WHITE BLOOD COUNT (AUTO) 5.8 K/uL (4.8-10.8)
--- NOTE | 2020-01-06 07:30 | NUR ---
Opening Note Report received from NOC RN. Patient found in [facility], A/Ox4 but confused. Speaking in full, complete sentences with ease, respirations even and unlabored. Patient denies complaints at this time and states she wants to speak with her daughter Arabella. Primary RN will try again today to reach out to daughter. Peripheral IV flushed, patent, saline locked. Bed in low and locked position, side rails up x3, call light within reach, bed alarm on. Bathroom needs addressed.
[2020-01-06 07:38] LABS: CALCIUM 8.4 mg/dL (8.4-11.0); CREATININE 1.07 mg/dL (0.55-1.30); POTASSIUM 4.4 mmol/L (3.5-5.1)
[2020-01-06 07:54] VITALS: BP_SYST 136
[2020-01-06] MEDS: RIFAXIMIN 550 MG TABLET PO SCH ×2 (08:29→21:21)
[2020-01-06] MEDS: NIACIN 500 MG CAPSULE.SA PO SCH ×2 (08:30→21:21)
[2020-01-06] MEDS: MULTIVITAMINS TAB 1 TABLET PO SCH (08:30)
[2020-01-06] MEDS: ASCORBIC ACID 500 MG TABLET PO SCH (08:30)
[2020-01-06] MEDS: LACTULOSE 20 GM/30 ML UDC PO SCH ×3 (08:30→21:22)
[2020-01-06] MEDS: MEGESTROL ACETATE 400 MG/10 ML UDC PO SCH ×2 (08:30→21:22)
[2020-01-06] MEDS: METOCLOPRAMIDE HCL 10 MG TABLET PO SCH ×2 (08:30→21:21)
[2020-01-06] MEDS: NYSTATIN 15 GM TOPICAL POWDER TP SCH ×2 (09:00→21:30)
[2020-01-06] MEDS: BALSAM PERU/CASTOR OIL 60 GM OINT...G. TP SCH (09:00)
--- NOTE | 2020-01-06 09:30 | NUR ---
Linens changed Patient incontinent to stool. Patient cleaned and linens changed.
[2020-01-06 10:09] VITALS: BP_SYST 136
--- NOTE | 2020-01-06 11:00 | NUR ---
Family Communication Patient's daughterArabella, called primary RN. Primary RN updated daughter on patient's condition and possible discharge today. New number for Arabella patel: [phone] (home), (cellphone)
[2020-01-06] MEDS: INSULIN REGULAR, HUMAN 100 UNITS/ML, 10 ML VIAL (humuLIN R) SUBCUT PRN ×2 (11:30→18:01)
--- NOTE | 2020-01-06 12:19 | NUR ---
Discharge Planning: DCP faxed pt referral to [facility] ([phone]) DCP to follow up. Addendum: 01/06/20 at 1741 by Abby Treadwell DP DCP spoke to [facility] at [facility] ([phone]) pt needs a ISO room, have to make arrangements. DCP to follow up.
[2020-01-06 13:02] VITALS: BP_SYST 137
--- NOTE | 2020-01-06 15:28 | NUR ---
Linen Change Patient incontinent to stool. Linens changed, patient cleaned and new dressing applied.
[2020-01-06 16:00] VITALS: BP_SYST 106
[2020-01-06] MEDS: ERTAPENEM SODIUM 0.5 GM in NS 50 ML IV SCH (18:02)
--- NOTE | 2020-01-06 18:57 | NUR ---
Closing Note Patient in bed, A/Ox2 to self and place. NAD. Denies chest pain/SOB. Patient resting at this time Midline infusing IV fluids at 75 ml/hr. Bed in low and locked position, side rails up x3, call light within reach, bed alarm on. Bathroom needs addressed. SCDs and air mattress in place. Will endorse care to RINKU RN.
[2020-01-06 20:00] VITALS: BP_SYST 147
--- NOTE | 2020-01-06 20:50 | NUR ---
Opening notes Pt alert, awake, oriented x2. VSS, afebrile, no s/s distress noted. BÁRBARA midline double lumen noted with IVF infusing at ordered rate. Saline locked R. FA 20G. Rangel catheter draining to gravity with yellow, urine. Davis heels floated on pillow and davis SCDs in place. Pt on low air loss mattress. Call light within reach. Contact isolation maintained. Bed low, locked, siderails upx3, alarm on. To monitor.
--- NOTE | 2020-01-06 21:22 | NUR ---
Med pass Pt alert, awake, meds passed as scheduled. HOB elevated. Pt tolerated well. Blood sugar checked 139. Call light within reach. To monitor.
[2020-01-07 01:00] VITALS: BP_SYST 152
--- NOTE | 2020-01-07 01:30 | NUR ---
Rounds Pt asleep, respirations even and unlabored. IVF infusing at ordered rate BÁRBARA midline. To monitor.
--- NOTE | 2020-01-07 05:30 | NUR ---
Pericare Pt incontinent of BM, pericare provided. Dressing dry and intact.
--- NOTE | 2020-01-07 06:44 | NUR ---
Closing notes Pt alert, awake, oriented x2, no s/s distress noted. BÁRBARA midline double lumen noted with IVF infusing at ordered rate. Saline locked R. FA 20G. BS checked 133 this AM. Rangel catheter draining to gravity with yellow, urine. Davis heels floated on pillow and davis SCDs in place. Pt on low air loss mattress. Call light within reach. Contact isolation maintained. Bed low, locked, siderails upx3, alarm on. To endorse to AM nurse.
[2020-01-07] MEDS: LEVOTHYROXINE SODIUM 0.15 MG TABLET PO SCH (06:45)
[2020-01-07] MEDS: INSULIN REGULAR, HUMAN 100 UNITS/ML, 10 ML VIAL (humuLIN R) SUBCUT PRN ×4 (06:46→23:28)
[2020-01-07] MEDS: LR 1,000 ML IV SCH ×3 (06:46→23:43)
[2020-01-07 08:00] VITALS: BP_SYST 139
--- NOTE | 2020-01-07 08:00 | NUR ---
opening note received sbar, patient in bed, respirations even, non labored, bed in low and locked position, call light within reach bed in low and locked position, call light within reach
--- NOTE | 2020-01-07 08:30 | NUR ---
nurse note administered morning medications, patient refused Megace, educated patient regarding the necessity of Megace, patient verbalized understanding, continued to refuse
[2020-01-07] MEDS: MEGESTROL ACETATE 400 MG/10 ML UDC PO SCH ×3 (08:39→23:26)
[2020-01-07] MEDS: MULTIVITAMINS TAB 1 TABLET PO SCH (08:39)
[2020-01-07] MEDS: ASCORBIC ACID 500 MG TABLET PO SCH (08:39)
[2020-01-07] MEDS: METOCLOPRAMIDE HCL 10 MG TABLET PO SCH ×2 (08:39→23:23)
[2020-01-07] MEDS: LACTULOSE 20 GM/30 ML UDC PO SCH ×3 (08:39→23:26)
[2020-01-07] MEDS: RIFAXIMIN 550 MG TABLET PO SCH ×2 (08:39→23:22)
[2020-01-07] MEDS: NIACIN 500 MG CAPSULE.SA PO SCH ×2 (08:58→21:00)
[2020-01-07] MEDS: NYSTATIN 15 GM TOPICAL POWDER TP SCH ×2 (08:58→21:00)
[2020-01-07] MEDS: BALSAM PERU/CASTOR OIL 60 GM OINT...G. TP SCH (09:00)
--- NOTE | 2020-01-07 10:00 | NUR ---
nurse note assisted patient with phone call to daughter, patient in bed, respirations even non labored, bed in low and locked position, call light within reach, bed alarm on
--- NOTE | 2020-01-07 12:00 | NUR ---
nurse note obtained BS, administered insulin per sliding scale, patient in bed, respirations even non labored, bed in low and locked position, call light within reach, bed alarm on, patient denies any pain or discomfort
[2020-01-07 12:25] VITALS: BP_SYST 142
--- NOTE | 2020-01-07 13:00 | NUR ---
NURSE NOTE PATIENT IN BED, RESPIRATIONS EVEN, NON LABORED, BED IN LOW AND LOCKED POSITION, CALL LIGHT WITHIN REACH, BED ALARM ON, IVF'S RUNNING ORDERED
--- NOTE | 2020-01-07 13:45 | NUR ---
nurse note patient in bed, eyes closed, respirations even, non labored, bed in low and locked position, call light within reach, bed alarm on Addendum: 01/07/20 at 1854 by Shira Pompa RN AMEND TIME SHOULD BE 1530
[2020-01-07 16:48] VITALS: BP_SYST 140
--- NOTE | 2020-01-07 17:30 | NUR ---
NURSE NOTE OBTAINED PATIENT BS, PROVIDED INSULIN PER SLIDING SCALE
[2020-01-07] MEDS: ERTAPENEM SODIUM 0.5 GM in NS 50 ML IV SCH (18:03)
--- NOTE | 2020-01-07 18:15 | NUR ---
NURSE NOTE INCONTINENT OF BOWEL, PROVIDED QUEENIE CARE, APPLIED MOISTURE BARRIER CREAM, CHANGED LINENS, REPOSITIONED PATIENT. PATIENT DENIES ANY PAIN OR DISCOMFORT.
--- NOTE | 2020-01-07 18:30 | NUR ---
PHONE CALL ASSISTED PATIENT MAKE PHONE CALL TO DAUGHTER
--- NOTE | 2020-01-07 19:08 | NUR ---
CLOSING NOTE PROVIDED BEDSIDE SBAR TO NIGHT RN, PATIENT IN BED, EYES CLOSED, RESPIRATIONS EVEN, NON LABORED, BED IN LOW AND LOCKED POSITION, CALL LIGHT WITHIN REACH, BED ALARM ON, IVF'S RUNNING ORDERED, PATIENT POSITIVE FOR MRSA OF NARES, ENDORSED TO NIGHT RN TO CALL MD AND GET ORDERS
[2020-01-07 20:30] VITALS: BP_SYST 132
--- NOTE | 2020-01-07 21:30 | NUR ---
Opening notes Pt alert, awake, oriented x3. VSS, afebrile, no s/s distress noted. BÁRBARA midline double lumen noted with IVF infusing at ordered rate. Saline locked R. FA 20G. Rangel catheter draining to gravity with yellow, urine. Davis heels floated on pillow and davis SCDs in place. Pt on low air loss mattress. Call light within reach. Contact isolation maintained. Bed low, locked, siderails upx3, alarm on. To monitor.
--- NOTE | 2020-01-08 00:35 | NUR ---
Rounds Pt asleep, respirations even and unlabored. IVF infusing at ordered rate BÁRBARA midline clear and patent. call light within reach. To monitor.
--- NOTE | 2020-01-08 02:00 | NUR ---
Rounds Pt asleep, respirations even and unlabored. IVF infusing at ordered rate BÁRBARA midline. To monitor.
--- NOTE | 2020-01-08 04:45 | NUR ---
Pericare Pt incontinent of BM, pericare provided. Protective barrier cream applied. Pt repositioned. To monitor.
[2020-01-08] MEDS: LEVOTHYROXINE SODIUM 0.15 MG TABLET PO SCH (06:27)
--- NOTE | 2020-01-08 06:31 | NUR ---
Closing notes Pt awake, emotional, no s/s distress noted. BS checked 128. Offered pt sandwich and ice chips, pt agreeable. IVF infusing at ordered rate BÁRBARA midline, clear and patent. Call light within reach. Bed low, locked, siderails up x3. Contact isolation maintained. To endorse to AM nurse.
[2020-01-08 08:00] VITALS: BP_SYST 145
--- NOTE | 2020-01-08 08:00 | NUR ---
Initial notes Awake and alert. denies any pain or discomfort. HYPERION ANALYST at bedside feeding patient. IVF infusing well. No acute distress noted. bed alarm on. call light in reach. will continue to monitor.
[2020-01-08] MEDS: METOCLOPRAMIDE HCL 10 MG TABLET PO SCH ×2 (08:30→22:00)
[2020-01-08] MEDS: ASCORBIC ACID 500 MG TABLET PO SCH (08:30)
[2020-01-08] MEDS: MULTIVITAMINS TAB 1 TABLET PO SCH (08:30)
[2020-01-08] MEDS: RIFAXIMIN 550 MG TABLET PO SCH ×2 (08:30→22:00)
[2020-01-08] MEDS: LACTULOSE 20 GM/30 ML UDC PO SCH ×3 (08:30→22:00)
[2020-01-08] MEDS: MEGESTROL ACETATE 400 MG/10 ML UDC PO SCH ×2 (08:31→21:59)
[2020-01-08] MEDS: BALSAM PERU/CASTOR OIL 60 GM OINT...G. TP SCH (08:32)
[2020-01-08] MEDS: MUPIROCIN 2% TOPICAL OINTMENT 22 GM TP SCH ×2 (08:32→22:00)
[2020-01-08] MEDS: NYSTATIN 15 GM TOPICAL POWDER TP SCH ×2 (08:32→21:57)
[2020-01-08] MEDS: NIACIN 500 MG TABLET.SA PO SCH ×2 (08:41→21:00)
--- NOTE | 2020-01-08 10:00 | NUR ---
Notes Repositioned for comfort, denies any pain. Wants to go home. Explain to the patient that we still waiting for a bed at [facility].
[2020-01-08] MEDS: INSULIN REGULAR, HUMAN 100 UNITS/ML, 10 ML VIAL (humuLIN R) SUBCUT PRN ×3 (11:41→21:59)
[2020-01-08 12:19] VITALS: BP_SYST 129
--- NOTE | 2020-01-08 12:21 | NUR ---
Spoke w/ ERICK and admissions at [facility]-they will not have isolation bed in the [facility] area until tomorrow due to ESBL isolation Spoke w/ training administrator Angelito-he will talk to the DON about a bed for the patient.
--- NOTE | 2020-01-08 13:07 | NUR ---
Notes- Resting just eat lunch. No acute distress noted. call light in reach. will monitor.
[2020-01-08] MEDS: LR 1,000 ML IV SCH (13:09)
--- NOTE | 2020-01-08 13:25 | NUR ---
Dietitian Recommendations *Recommend continuing 2 gm Na, CCHO, mechanical soft, finely chopped diet LP,RD Please refer to Nutrition F/U for details.
--- NOTE | 2020-01-08 15:15 | NUR ---
Nutrition F/U RD reviewed pt's current EMR record including diet Hx, physician notes, nursing notes, pertinent labs/meds/procedures, care trends, and care activity. Admission Dx: UTI, Hypotension PMH: Pt presents w/: UTI, Hypotension r/t sepsis, Metabolic Encephalopathy, Hx of Hepatic Encephalopathy, Chronic Anemia, Chronic Liver Cirrhosis, Hypothyroidism, DM, Thrombocytopenia per MD notes. ID Consult Notes: ARF, Recent COVID-19 infection SARS-CoV-2 Ag Rapid 01/02 Negative Current Diet Order/Nutrition Support: 2 gm Na, CCHO, mechanical soft, finely chopped x2 days Subjective Info: RD did not visit pt's room d/t isolation precautions and limited PPE resources. Per EMR review, pt is awake, alert, confused, and disoriented. Pt's PO intakes appear to have improved since last RD visit. Current diet remains adequate/appropriate. No ONS warranted at this time. Continue to encourage increased PO intakes. Pertinent Medications MVI, VIT C, synthroid, reglan, lactulose, insulin, colace, megace, niacin Pertinent Labs 01/08/20: POC BG 194 H 01/06/20: BG 184 H, BUN 27 H, CRE 1.07 H Skin Integrity Comment: Herb scale: 14. Per Dog Catcher note 01/03: Erythema from IAD to Bilateral Inguinal Areas, Right Axillary Area. Per EMR, 2+ pitting Bilateral arm edema, 1+ pitting edema to Left ankle, 1+ pitting edema to R ankle. Current % PO Fair -- 72% average x9 meals Estimated Energy Expenditure (kcals/day) 9273-8478 kcal/day (30-35 kcal/kg Adj IBW for sepsis) Estimated Protein Required (g/day) 56-73 gm/day (1-1.3 gm/kg Adj IBW for Renal Dz predialysis and sepsis) Estimated Fluid Required (l/day) per MD (ARF) Problem/Etiology/Signs/Symptoms Predicted suboptimal nutrient intake r/t current diet AEB PO intake meeting <50% of estimated needs on full liquid diet. *improved Altered nutrition-related labs r/t endocrine and renal dysfunction AEB elevated BG, POC BG, BUN and CRE lab values and ARF and Hx of DM. *improving Expected Outcomes/Goals Monitor appetite and PO intake w/ goal of pt meeting more than 75% of estimated nutritional needs, labs trending WNL, normal GI function, skin integrity/wt maintenance. Dietitian Recommendations *Recommend continuing 2 gm Na, CCHO, mechanical soft, finely chopped diet Follow Up Moderate Risk: F/U in 3-5 days
[2020-01-08 16:18] VITALS: BP_SYST 147
[2020-01-08] MEDS: ERTAPENEM SODIUM 0.5 GM in NS 50 ML IV SCH (17:50)
--- NOTE | 2020-01-08 19:15 | NUR ---
Report received from day shift nurse. Pt was received lying in bed awake and oriented to her name. Pt is on room air and no respiratory distress noted. Skin is warm and dry to touch. No signs or symptoms of hypoglycemia or hyperglycemia noted. IVF of LR is infusing well via BÁRBARA Midline at 75ml/hr with Midline dressing dry and intact. Rangel cath to gravity drainage noted with yellowish urine. Fall and safety precautions are in place. Call light is with pt and bed alarm is on. Bed is in the lowest and locked positions.
[2020-01-08 20:00] VITALS: BP_SYST 110
--- NOTE | 2020-01-08 21:59 | NUR ---
Accucheck 176 and 2 units Regular Insulin given SQ. Skin remains warm and dry to touch. Pt was spoon fed 1 cup Jello per her request. IVF is infusing well via BÁRBARA Midline.
--- NOTE | 2020-01-08 22:15 | NUR ---
RN called pt's daughter Arabella per pt's request and pt spoke with her.
--- NOTE | 2020-01-09 00:30 | NUR ---
No acute distress noted at this time. IVF is infusing well in [facility]. Call light is with pt and bed alarm is on.
--- NOTE | 2020-01-09 02:30 | NUR ---
Pt is awake and yelling to speak with her daughter. Pt also wanted back of her ears massaged, which RN did for pt. IVF is infusing well in BÁRBARA. Call light is with pt and bed alarm is on.
[2020-01-09] MEDS: LR 1,000 ML IV SCH (03:46)
--- NOTE | 2020-01-09 04:30 | NUR ---
Pt is sleeping quietly in bed. Fall and safety precautions are in place.
--- NOTE | 2020-01-09 06:15 | NUR ---
Per pt's request, RN called Pt's daughter Arabella on Arabella's cell phone number. Pt got Arabella's voice mail and pt left a voice mail message.
[2020-01-09] MEDS: LEVOTHYROXINE SODIUM 0.15 MG TABLET PO SCH (06:25)
[2020-01-09] MEDS: INSULIN REGULAR, HUMAN 100 UNITS/ML, 10 ML VIAL (humuLIN R) SUBCUT PRN ×2 (06:27→12:06)
--- NOTE | 2020-01-09 06:27 | NUR ---
Accucheck 163 and 2 units Regular Insulin given SQ. Skin remains warm and dry to touch. IVF is infusing well via BÁRBARA Midline.
[2020-01-09 08:00] VITALS: BP_SYST 136
--- NOTE | 2020-01-09 08:00 | NUR ---
Initial notes In bed, eating breakfast with BODY SHOP MANAGER help. Denies any pain or discomfort. on room air. IVF infusing well. No acute distress noted. bed alarm on, will continue to monitor.
[2020-01-09] MEDS: MUPIROCIN 2% TOPICAL OINTMENT 22 GM TP SCH (08:47)
[2020-01-09] MEDS: BALSAM PERU/CASTOR OIL 60 GM OINT...G. TP SCH (08:47)
[2020-01-09] MEDS: RIFAXIMIN 550 MG TABLET PO SCH (08:48)
[2020-01-09] MEDS: MEGESTROL ACETATE 400 MG/10 ML UDC PO SCH (08:48)
[2020-01-09] MEDS: ASCORBIC ACID 500 MG TABLET PO SCH (08:48)
[2020-01-09] MEDS: MULTIVITAMINS TAB 1 TABLET PO SCH (08:48)
[2020-01-09] MEDS: LACTULOSE 20 GM/30 ML UDC PO SCH ×2 (08:48→15:00)
[2020-01-09] MEDS: METOCLOPRAMIDE HCL 10 MG TABLET PO SCH (08:48)
[2020-01-09] MEDS: NYSTATIN 15 GM TOPICAL POWDER TP SCH (08:49)
[2020-01-09] MEDS: NIACIN 500 MG TABLET.SA PO SCH (08:49)
--- NOTE | 2020-01-09 11:00 | NUR ---
Notes- Resting, denies any pain or discomfort. wants to speak to her daughter but unable to reach at this time.
--- NOTE | 2020-01-09 11:04 | NUR ---
Discharge Planning QUALITY ASSURANCE NURSE called for transportation with [facility] ([phone]) 3:30pm P/U BLS to [facility] [phone] Rm 104 A. Patient packet taken to nurse station. Rn made aware.
[2020-01-09 12:20] VITALS: BP_SYST 122
[2020-01-09 13:50] VITALS: BP_SYST 122
--- NOTE | 2020-01-09 14:40 | NUR ---
notes- trying to contact patient's daughter but unable to reach.
--- NOTE | 2020-01-09 16:06 | NUR ---
DISCHARGE D/C PT TO [facility] VIA AMBULANCE, DENIES ANY PAIN OR DISCOMFORT. DISCHARGE PACKET GIVEN TO AMBULANCE STAFF. ARM BAND REMOVED. KEEP LEFT UPPER ARM MIDLINE. NO ACUTE DISTRESS NOTED. DISCHARGE.
== END 2020-01-09 16:06 | DRG 720 ==
LOC: SED 08:35 → SIC 10:19 → STU 01-04 17:26
PROVIDERS: ADMIT Internal Medicine; ATTEND Internal Medicine
DX: A41.9 Sepsis, unspecified organism (principal); R65.21 Severe sepsis with septic shock; G93.41 Metabolic encephalopathy; N39.0 Urinary tract infection, site not specified; K74.60 Unspecified cirrhosis of liver; K72.90 Hepatic failure, unspecified without coma; D64.9 Anemia, unspecified; E03.9 Hypothyroidism, unspecified; D69.6 Thrombocytopenia, unspecified; E66.01 Morbid (severe) obesity due to excess calories; N17.9 Acute kidney failure, unspecified; I12.9 Hypertensive chronic kidney disease with stage 1 through stage 4 chronic kidney disease, or unspecified chronic kidney disease; N18.9 Chronic kidney disease, unspecified; Z20.828 Contact with and (suspected) exposure to other viral communicable diseases; E11.22 Type 2 diabetes mellitus with diabetic chronic kidney disease; K75.81 Nonalcoholic steatohepatitis (NASH); Z79.899 Other long term (current) drug therapy; Z68.38 Body mass index [BMI] 38.0-38.9, adult
CPT/HCPCS: 36415; 71045; 76700-TC; 80048; 80053; 81000-TC; 82140-TC; 82962; 83605; 83880; 84484; 85025; 85610-TC; 85730-TC; 87040-TC; 87081; 87086; 93005; 96361; 96365; 99285; C1751; G0378; J0692; J0696; J1335; J1815; J2543; J3490; J7030; J7060; J7120; J8597

== ENCOUNTER 2020-01-24 18:41 | Emergency (ER) | payer MEDICAID, SELFPAY ==
[~2020-01-24] VITALS: Ht 157.5 cm; Wt 113.4 kg
[2020-01-24 18:41] VITALS: BP_SYST 147
[~2020-01-24 18:41] MED LIST changes: +ACET-73 PO; +FERR236T3 PO; +FLEETMO RC
--- NOTE | 2020-01-24 18:41 | NUR ---
Patient to ER bed 8 to gown for evaluation. Side rails up. Report given to MARJORIE Multani.
--- NOTE | 2020-01-24 18:55 | NUR ---
DR DURON IN TO ASSESS
--- NOTE | 2020-01-24 19:05 | NUR ---
BIB EMT FROM SNF FOR ALOC/ LETHARGIC. PT RECEIVED WITH FC DRAINING CLOUDY YELLOW URINE, DIAPERED, RESP UNLABORED, SKIN WARM AND DRY. COMMUNICATES CLEARLY, . DENIES CP/SOB GOOD CONVERSATION SKILLS, SENSE OF HUMOR INTACT.
[2020-01-24] MEDS ORDERED: LACTULOSE 20 GM/30 ML UDC PO ONE (19:15)
[2020-01-24 19:33] LABS: EOSINOPHILS # (AUTO) 0.3 K/uL (0.0-0.4); EOSINOPHILS % (AUTO) 5.3 % (0.0-4.0); NEUTROPHILS # (AUTO) 2.3 K/uL (1.8-7.7)
[2020-01-24 19:37] LABS: BASOPHILS # (AUTO) 0.1 K/uL (0.0-0.2); BASOPHILS % (AUTO) 1.3 % (0.0-2.0); CALCIUM 8.6 mg/dL (8.4-11.0); CREATININE 1.14 mg/dL (0.55-1.30); HEMATOCRIT 26.9 % (36-48); HEMOGLOBIN 8.8 g/dL (12.0-16.0); LYMPHOCYTES # (AUTO) 1.9 K/uL (1.0-5.5); LYMPHOCYTES % (AUTO) 39.1 % (20.5-51.5); MEAN CORPUSCULAR HEMOGLOBIN 29 pg (27-31); MEAN CORPUSCULAR HGB CONC 33 % (32-36); MEAN CORPUSCULAR VOLUME 90 fL (79.0-98.0); MONOCYTES # (AUTO) 0.4 K/uL (0.0-1.0); MONOCYTES % (AUTO) 7.8 % (1.7-9.3); NEUTROPHILS % (AUTO) 46.5 % (40.0-70.0); PLATELET COUNT (AUTO) 133 K/uL (130-430); POTASSIUM 5.3 mmol/L (3.5-5.1); RED CELL DISTRIBUTION WIDTH 19.7 % (9.0-15.0)
[2020-01-24 19:42] LABS: ALBUMIN 2.6 g/dL (3.4-4.8); TOTAL BILIRUBIN 0.6 mg/dL (0.0-1.0)
--- NOTE | 2020-01-24 20:05 | NUR ---
MEDICATED ORDERED, TOLERATING PO WELL
[2020-01-24] MEDS ORDERED: NS 500 ML IV ONE (20:15)
[2020-01-24] MEDS ORDERED: cefTRIAXone 1 GM IVPB PREMIX 50 ML IV ONE (20:15)
--- NOTE | 2020-01-24 20:15 | NUR ---
DR RODRIGUEZ IN TO ASSESS. PT EASILY AROUSED,
--- NOTE | 2020-01-24 20:18 | NUR ---
REPORT GIVEN TO AKASH AT [facility]. AWARE OF UTI AND INSTRUCTED TO LEAVE IV HL
[2020-01-24 20:20] LABS: BILIRUBIN,URINE NEGATIVE (NEGATIVE); BLOOD, URINE 3+ (NEGATIVE); CLARITY/URINE SL CLOUDY (CLEAR); COLOR,URINE YELLOW (YELLOW); GLUCOSE,URINE NEGATIVE (NEGATIVE); KETONES,URINE NEGATIVE (NEGATIVE); LEUKOCYTE ESTERASE ,URINE 2+ (NEGATIVE); NITRITE, URINE POSITIVE (NEGATIVE); PROTEIN URINE 2+ (NEGATIVE)
--- NOTE | 2020-01-24 20:26 | NUR ---
REPOSITIONED FOR COMFORT
[2020-01-24 20:29] LABS: BACTERIA,URINE MANY /HPF (None Seen); MUCUS,URINE None Seen /LPF (None Seen); RBC,URINE 20-50 /HPF (0-3); WBC,URINE >100 /HPF (0-3)
[2020-01-24 22:15] VITALS: BP_SYST 134
--- NOTE | 2020-01-24 22:15 | NUR ---
Patient given written and verbal discharge instructions and verbalizes understanding. ER MD discussed with patient the results and treatment provided. Patient in stable condition. Rx of ABX given. Patient educated on pain management and to follow up with PMD. Pain Scale 0/10 Opportunity for questions provided and answered. Medication side effect fact sheet provided.
== END 2020-01-24 22:15 | disposition home or self-care (01) ==
LOC: SED 18:41
DX: N39.0 Urinary tract infection, site not specified (principal); R41.82 Altered mental status, unspecified; I10 Essential (primary) hypertension; E11.29 Type 2 diabetes mellitus with other diabetic kidney complication; N28.9 Disorder of kidney and ureter, unspecified; E07.9 Disorder of thyroid, unspecified; Z85.51 Personal history of malignant neoplasm of bladder; Z79.899 Other long term (current) drug therapy; Z79.4 Long term (current) use of insulin; Z20.828 Contact with and (suspected) exposure to other viral communicable diseases
CPT/HCPCS: 36415; 71045; 80053; 81000; 82140; 85025; 87086; 87426; 96365; 99285; J0696; J7040; 87186-TC

== ENCOUNTER 2020-10-07 19:56 | Emergency (ER) | payer OTHER, MEDICAID ==
[~2020-10-07] VITALS: Ht 154.9 cm; Wt 93.0 kg
--- NOTE | 2020-10-07 20:01 | NUR ---
Received patient to ER from [facility] w/ c/o abnormal labs (BUN 37 Cr1.2). Introduced self to patient, positioned for comfort. Bed to low position sr up. Patient h/o DM and generalized weakness and contractures to hands/fingers. Patient resting quietly. No acute distress noted. Vital signs within normal range. Continue to monitor.
--- NOTE | 2020-10-07 20:01 | NUR ---
Placed in room 03 . Placed on youth nutritional monitor, blood pressure machine and pulse oximeter. To gown for exam. Side rails up.
[2020-10-07 20:03] VITALS: BP_SYST 140
[2020-10-07] MEDS ORDERED: NACL 0.9% 1,000 ML IV ONE (20:30)
--- NOTE | 2020-10-07 20:30 | NUR ---
# 22 gauge angiocath placed to right handUse of asceptic technique. Opsite placed over site. Blood return noted. Flushed with 10 cc of normal saline. No evidence of infiltration noted. Patient tolerated well.
[2020-10-07] MEDS ORDERED: LACT1CAP69 PO (20:49)
[2020-10-07] MEDS ORDERED: LACT10SO6 PO (20:49)
[2020-10-07] MEDS ORDERED: FAMO20TA8 PO (20:49)
[2020-10-07] MEDS ORDERED: OMEP20CA15 PO (20:49)
[2020-10-07] MEDS ORDERED: INSU100V42 (20:49)
[2020-10-07] MEDS ORDERED: GLUC1VIA4 IM (20:49)
[2020-10-07] MEDS ORDERED: CRAN450T9 PO (20:49)
[2020-10-07 20:55] LABS: BASOPHILS # (AUTO) 0.1 K/uL (0.0-0.2); EOSINOPHILS # (AUTO) 0.4 K/uL (0.0-0.4); EOSINOPHILS % (AUTO) 6.2 % (0.0-4.0); HEMATOCRIT 29.5 % (36-48); HEMOGLOBIN 9.6 g/dL (12.0-16.0); LYMPHOCYTES # (AUTO) 2.2 K/uL (1.0-5.5); LYMPHOCYTES % (AUTO) 37.6 % (20.5-51.5); MEAN CORPUSCULAR HEMOGLOBIN 29 pg (27-31); MEAN CORPUSCULAR HGB CONC 33 % (32-36); MEAN CORPUSCULAR VOLUME 88 fL (79.0-98.0); MONOCYTES # (AUTO) 0.4 K/uL (0.0-1.0); MONOCYTES % (AUTO) 6.6 % (1.7-9.3); NEUTROPHILS # (AUTO) 2.9 K/uL (1.8-7.7); NEUTROPHILS % (AUTO) 48.6 % (40.0-70.0); PLATELET COUNT (AUTO) 133 K/uL (130-430); RED BLOOD CELL COUNT(AUTO) 3.37 MIL/uL (4.2-6.2)
--- NOTE | 2020-10-07 21:00 | NUR ---
Medicated per MD orders. IVF infusing with no s/s of infiltration at this time. Will cont to monitor and observe for any adverse reaction. # 16 FR Crystal catheter with use of sterile technique. Immediate return of 20 cc cloudy yellow urine noted. Bedside drainage bag placed below level of bladder. Urine sample collected and sent to lab. Pt tolerated procedure well. Patient arrived with crystal in place, changed due to standard of practice prior to admission.
[2020-10-07 21:05] LABS: CALCIUM 8.5 mg/dL (8.4-11.0); CREATININE 1.41 mg/dL (0.55-1.30); POTASSIUM 4.7 mmol/L (3.5-5.1)
[2020-10-07 21:10] LABS: ALBUMIN 2.5 g/dL (3.4-4.8); TOTAL BILIRUBIN 0.4 mg/dL (0.0-1.0)
[2020-10-07 21:48] LABS: BILIRUBIN,URINE NEGATIVE (NEGATIVE); BLOOD, URINE 3+ (NEGATIVE); CLARITY/URINE SL CLOUDY (CLEAR); COLOR,URINE YELLOW (YELLOW); GLUCOSE,URINE NEGATIVE (NEGATIVE); KETONES,URINE TRACE (NEGATIVE); NITRITE, URINE POSITIVE (NEGATIVE); PROTEIN URINE 3+ (NEGATIVE); UROBILINOGEN,URINE 0.2 (0.2-1.0)
[2020-10-07 22:02] LABS: LEUKOCYTE ESTERASE ,URINE 3+ (NEGATIVE)
[2020-10-07 22:04] LABS: BACTERIA,URINE MODERATE /HPF (None Seen); MUCUS,URINE None Seen /LPF (None Seen); WBC,URINE >100 /HPF (0-3); YEAST,URINE Few /HPF (None Seen)
[2020-10-07] MEDS ORDERED: CEFU250T85 PO (22:21)
[2020-10-07] MEDS ORDERED: cefTRIAXone 1 GM in D5W 50 ML IV ONE (22:45)
[2020-10-07] MEDS ORDERED: cefTRIAXone 1 GM VIAL ONE (22:45)
--- NOTE | 2020-10-07 22:45 | NUR ---
Medicated w/ 1gm Rocephin ivpb per MD orders. IVF still infusing with no s/s of infiltration at this time. Will cont to monitor and observe for any adverse reaction. Patient resting quietly. No acute distress noted. Vital signs within normal range. bed to low position sr up, continue to monitor.
--- NOTE | 2020-10-07 23:18 | NUR ---
Report called and given to Laxim (nurse) at [facility] who was informed that patient bun/cr has improved compared to initial lab draw and that patient has been medicated w/ abx and to continue w/ oral abx for UTI dx'd
[2020-10-08 01:15] VITALS: BP_SYST 139
--- NOTE | 2020-10-08 01:15 | NUR ---
Ambulance EMT for Medic 1-Patient given written and verbal discharge instructions and verbalizes understanding. ER MD discussed with patient the results and treatment provided. Patient in stable condition. ID arm band removed. IV catheter removed intact and dressing applied, no active bleeding. Rx of Cefuroxime given. Patient educated on pain management and to follow up with PMD. Pain Scale . Opportunity for questions provided and answered. Medication side effect fact sheet provided.
== END 2020-10-08 01:15 ==
LOC: SED 19:56
DX: E86.0 Dehydration (principal); N39.0 Urinary tract infection, site not specified; N18.9 Chronic kidney disease, unspecified; I10 Essential (primary) hypertension; E11.9 Type 2 diabetes mellitus without complications; Z79.899 Other long term (current) drug therapy
CPT/HCPCS: 36415; 80053; 81000; 85025; 87086; 96361; 96365; 99284; J0696; J7030

== ENCOUNTER 2020-10-25 13:33 | Inpatient (IN) | payer OTHER, MEDICAID, SELFPAY ==
[~2020-10-25] VITALS: Ht 157.5 cm; Wt 102.1 kg
[2020-10-25] VITALS (14 sets, daily range): BP systolic 98–140
[~2020-10-25 13:33] MED LIST changes: -ASCO500T20 PO; +CEFU250T85 PO; +CRAN450T9 PO; -DEXT30DR6 EACH EYE; -DIPH25CA83 PO; +FAMO20TA8 PO; -FLEETMO RC; +GLUC1VIA4 IM; -INSU100V11 SQ; +INSU100V42; -IPRA4AER INH; +LACT10SO6 PO; -LACT10SO7 PO; +LACT1CAP69 PO; -METO-290 PO; -MULT-1089 PO; -NIAC500T2 PO; +OMEP20CA15 PO; -ONDA4TAB5 PO; +VECURONIUM BROMIDE 10 MG/VIAL (NORCURON) IV ONE
--- NOTE | 2020-10-25 13:35 | NUR ---
PT TO BED 6, GOWNED AND ATTACHED TO PAN SHAKER.
--- NOTE | 2020-10-25 13:45 | NUR ---
DR. MORILLO AT BEDSIDE TO ASSESS.
[2020-10-25] MEDS ORDERED: NACL 0.9% 1,000 ML IV ONE ×5 (14:00→20:45)
[2020-10-25] MEDS ORDERED: PIPERACILLIN/TAZO 3.375 GM in NS 50 ML IV ONE (14:00)
[2020-10-25] MEDS ORDERED: VANCOMYCIN HCL 1,000 MG in NS 250 ML IV ONE (14:00)
--- NOTE | 2020-10-25 14:00 | NUR ---
# 20 AND #22 gauge angiocath placed to RIGHT AND LEFT CHEST. Use of asceptic technique. Opsite placed over site. Blood return noted. Blood for lab drawn from site. Flushed with 10 cc of normal saline. No evidence of infiltration noted. Patient tolerated well.
[2020-10-25] MEDS ORDERED: SENN8.6T19 PO (14:04)
--- NOTE | 2020-10-25 14:08 | NUR ---
Patient transported to radiology via gurney, accompanied by director of medical education.
[2020-10-25 14:15] LABS: BASOPHILS % (AUTO) 0.5 % (0.0-2.0); EOSINOPHILS # (AUTO) 0.1 K/uL (0.0-0.4); EOSINOPHILS % (AUTO) 0.6 % (0.0-4.0); HEMATOCRIT 24.8 % (36-48); LYMPHOCYTES # (AUTO) 2.5 K/uL (1.0-5.5); LYMPHOCYTES % (AUTO) 25.2 % (20.5-51.5); MEAN CORPUSCULAR HEMOGLOBIN 30 pg (27-31); MEAN CORPUSCULAR HGB CONC 32 % (32-36); MEAN CORPUSCULAR VOLUME 91 fL (79.0-98.0); MONOCYTES # (AUTO) 0.9 K/uL (0.0-1.0); MONOCYTES % (AUTO) 9.5 % (1.7-9.3); NEUTROPHILS # (AUTO) 6.4 K/uL (1.8-7.7); NEUTROPHILS % (AUTO) 64.2 % (40.0-70.0); PLATELET COUNT (AUTO) 91 K/uL (130-430); RED BLOOD CELL COUNT(AUTO) 2.72 MIL/uL (4.2-6.2); RED CELL DISTRIBUTION WIDTH 18.7 % (9.0-15.0); WHITE BLOOD COUNT (AUTO) 9.9 K/uL (4.8-10.8)
[2020-10-25] MEDS ORDERED: VECURONIUM BROMIDE 10 MG/VIAL (NORCURON) IVP ONE (14:25)
--- NOTE | 2020-10-25 14:25 | NUR ---
DR. ETIENNE AND R.T. AT BEDSIDE FOR INTUBATION. V/S STABLE 122/64, 95, 24, 97%. PT OXYGENATED PER R.T. AND VECURONIUM 10MG IVP ADMINISTERED PER RN MERARY ETIENNE INSERTED 7.5CM ET TUBE W/ PLACEMENT 22 @ LIP, + CAP, AND EQUAL BREATH SOUNDS BILATERALLY. XRAY ORDERED FOR PLACEMENT VERIFICATION. V/S FOLLOWING PROCEDURE STABLE 132/62, 95, 23, 100%. VENT SETTINGS AC 14, FI02 100%, TV 550, AND PEEP OF 5.
[2020-10-25 14:31] LABS: CALCIUM 7.9 mg/dL (8.4-11.0)
--- NOTE | 2020-10-25 14:35 | NUR ---
PORTABLE CXR DONE AT BEDSIDE FOR ET TUBE VERIFICATION.
--- NOTE | 2020-10-25 14:40 | NUR ---
ASSISTED INTUBATION BY MD ETIENNE. 1425 INTUBATION, ETT 7.08/27 AT LIP LINE. ETT SECURED WITH INOCENCIA ANCHOR FAST. CO2 DETECTOR CHANGED COLOR YELLOW AND BILATERAL BREATH SOUNDS NOTED. 1430 PT ON VENT, SETTINGS WITH AC14, VT 550, PEEP +5, FIO2 100%. VENT TO RED OUTLET AND ALARMS ARE AUDIBLE.
[2020-10-25 14:43] LABS: ALBUMIN 2.1 g/dL (3.4-4.8); CREATININE 5.84 mg/dL (0.55-1.30); TOTAL BILIRUBIN 0.6 mg/dL (0.0-1.0)
--- NOTE | 2020-10-25 14:45 | NUR ---
NJ TUBE PLACED TO THE RIGHT NARE
[2020-10-25 14:47] LABS: POTASSIUM 6.8 mmol/L (3.5-5.1)
--- NOTE | 2020-10-25 14:50 | NUR ---
CENTRAL LINE PLACED TO THE RIJ BY DR. ETIENNE
[2020-10-25] MEDS ORDERED: VANCOMYCIN HCL 1000 MG/VIAL IV ONE (15:03)
[2020-10-25] MEDS ORDERED: PIPERACILLIN/TAZOBACTAM 3.375 GM/VIAL (ZOSYN) IV ONE (15:03)
[2020-10-25] MEDS ORDERED: SODIUM POLYSTYRENE SULFONATE 15 GM/60 ML UDBTL PO ONE (15:15)
[2020-10-25] MEDS ORDERED: CALCIUM CHLORIDE 1 GM/10 ML DISP.SYRIN (14 mEq Ca++/SYR) IVP ONE (15:15)
[2020-10-25] MEDS ORDERED: INSULIN REGULAR, HUMAN 10 UNITS/0.1 ML INJ IVP ONE (15:15)
[2020-10-25] MEDS ORDERED: SODIUM BICARBONATE 8.4% JECT 50 MEQ/50 ML SYRINGE IVP ONE ×2 (15:15→19:00)
[2020-10-25] MEDS ORDERED: DEXTROSE 50% JECT 50 ML DISP.SYRIN IVP ONE (15:15)
[2020-10-25] MEDS ORDERED: NOREPINEPHRINE BITARTRATE 4 MG in NS 246 ML IV ONE (16:00)
--- NOTE | 2020-10-25 16:00 | NUR ---
# 16 FR Crystal catheter with use of sterile technique. Immediate return of 50 cc cloudy urine noted. Bedside drainage bag placed below level of bladder. Urine sample collected and sent to lab. Pt tolerated procedure well Patient arrived with crystal in place, changed due to standard of practice prior to admission. Patient unable to toilet self.
[2020-10-25] MEDS ORDERED: NOREPINEPHRINE 4 MG/4 ML VIAL IV ONE (16:42)
--- NOTE | 2020-10-25 16:57 | NUR ---
PER PT'S JUAN LUIS PT IS A FULL CODE
--- NOTE | 2020-10-25 17:07 | NUR ---
Patient will be admitted to care of [facility]. Admitted to ICU unit. Will go to room 6. Belongings list completed. Complete and up to date summary report printed. SBAR report to be given at bedside with opportunity for questions.
[2020-10-25 17:15] LABS: BILIRUBIN,URINE NEGATIVE (NEGATIVE); BLOOD, URINE 3+ (NEGATIVE); CLARITY/URINE TURBID (CLEAR); COLOR,URINE YELLOW (YELLOW); GLUCOSE,URINE NEGATIVE (NEGATIVE); KETONES,URINE NEGATIVE (NEGATIVE); LEUKOCYTE ESTERASE ,URINE 2+ (NEGATIVE); NITRITE, URINE NEGATIVE (NEGATIVE); PROTEIN URINE 3+ (NEGATIVE); UROBILINOGEN,URINE 0.2 (0.2-1.0)
--- NOTE | 2020-10-25 17:30 | NUR ---
TRANSFERRED PT TO ICU 3 FROM ER 6 VIA VENT JORDAN. NO RESPIRATORY DISTRESS NOTED. SPO2 98%, HR 96. VENT TO RED OUTLET AND ALARMS ARE AUDIBLE.
[2020-10-25] MEDS ORDERED: DOCUSATE SODIUM 100 MG CAPSULE PO PRN (18:00)
[2020-10-25] MEDS ORDERED: BISACODYL 10 MG/SUPPOSITORY RC PRN (18:00)
[2020-10-25] MEDS ORDERED: ACETAMINOPHEN 325 MG TABLET PO PRN (18:00)
[2020-10-25] MEDS ORDERED: LevALBUTEROL HCL 1.25 MG/0.5 ML *CONC.* VIAL.NEB (XOPENEX CONC.) INH PRN (18:00)
--- NOTE | 2020-10-25 18:10 | NUR ---
Pt had a large liquid BM. may care done. Pt has denuding to sacrum, coccyx, both thighs almost down to knees. Skin is bleeding. PT received form a nursing facility. SKin cleaned with water, and patted dry. When done turning the patient, the patient had another very large bowel movement, watery and foul smelling. Flexi-seal placed. Pt has poor anal spincter tone. May care done again and linen changed.
[2020-10-25] MEDS: NACL 0.9% 1,000 ML IV SCH (18:42)
--- NOTE | 2020-10-25 18:45 | NUR ---
Family in to visit. Dr. Hansen spoke with family in the waiting room.
--- NOTE | 2020-10-25 18:54 | NUR ---
2 amps of sodium bicarb given IVP.
[2020-10-25 19:08] LABS: INR 1.3 (0.8-1.2)
[2020-10-25 19:12] LABS: BACTERIA,URINE MANY /HPF (None Seen); RBC,URINE 20-50 /HPF (0-3); WBC,URINE >100 /HPF (0-3)
[2020-10-25 19:13] LABS: MUCUS,URINE None Seen /LPF (None Seen); YEAST,URINE Moderate /HPF (None Seen)
--- NOTE | 2020-10-25 19:30 | NUR ---
PM SHIFT ASSESSMENT PATIENT IS LETHARGIC, BUT AWAKE. O2 VIA VENT, TOLERATING CURRENT VENT SETTINGS. SR ON MONITOR. SKIN WARM AND DRY. IVF INFUSING TO CENTRAL LINE, NO SIGNS OF INFILTRATION NOTED. RODRIGUEZ CATHETER AND FLEXI SEAL IN PLACE AND DRAINING TO GRAVITY. SAFETY PRECAUTIONS IN PLACE, CALL LIGHT WITHIN REACH. WILL CONTINUE TO MONITOR.
--- NOTE | 2020-10-25 19:45 | NUR ---
DR. SESAY HERE TO SEE PATIENT.
--- NOTE | 2020-10-25 20:00 | NUR ---
FAMILY HERE, DAUGHTER, KELLEY GOTTLIEB ON CURRENT POC. KELLEY WAS ABLE TO SPEAK WITH DR. ESSAY, ALL QUESTIONS ANSWERED AT THIS TIME.
[2020-10-25 20:08] LABS: CALCIUM 7.7 mg/dL (8.4-11.0); CREATININE 5.53 mg/dL (0.55-1.30); POTASSIUM 5.5 mmol/L (3.5-5.1)
[2020-10-25] MEDS ORDERED: PROPOFOL DRIP 100 ML IV ONE (20:09)
--- NOTE | 2020-10-25 20:30 | NUR ---
DIALYSIS CATHETER INSERTED BY DR. SESAY, CONSENT SIGNED BY DAUGHTER, KELLEY.
[2020-10-25] MEDS ORDERED: PROPOFOL DRIP 100 ML IV PRN (20:45)
[2020-10-25] MEDS: MEROPENEM 500 MG in NS 50 ML IV SCH (20:50)
[2020-10-25] MEDS: PANTOPRAZOLE SODIUM 40 MG/VIAL (PROTONIX) IVP SCH (20:51)
[2020-10-25] MEDS: NYSTATIN 15 GM TOPICAL POWDER TP SCH (20:51)
[2020-10-25] MEDS: CLOTRIMAZOLE 1% TOPICAL CREAM 15 GM TP SCH (20:52)
--- NOTE | 2020-10-25 21:22 | NUR ---
PAGED FOR CONSULT ORDERING PHYSICIAN: REASON FOR CONSULT: SEPSIS DIALED: [phone] SPOKE TO: KIRA
[2020-10-25] MEDS ORDERED: HEPARIN SODIUM,PORCINE 5,000 UNITS/ML VIAL IVP ONE ×2 (22:00→22:45)
[2020-10-25] MEDS ORDERED: HEPARIN SODIUM,PORCINE 5,000 UNITS/ML VIAL ONE (22:07)
[2020-10-25] MEDS ORDERED: ALBUMIN HUMAN 25% 100 ML IV ONE ×2 (22:26→22:30)
[2020-10-25] MEDS: LevALBUTEROL HCL 1.25 MG/0.5 ML *CONC.* VIAL.NEB (XOPENEX CONC.) INH SCH (23:27)
--- NOTE | 2020-10-25 23:46 | NUR ---
HD FIRST SESSION OF HD DONE, 1L OUT. PATIENT TOLERATED CARE WELL. WILL CONTINUE TO MONITOR.
[2020-10-26] VITALS (31 sets, daily range): BP systolic 92–137
[2020-10-26] MEDS: NACL 0.9% 1,000 ML IV SCH ×4 (00:33→18:58)
[2020-10-26] MEDS: MEROPENEM 500 MG in NS 50 ML IV SCH (05:59)
[2020-10-26] MEDS: LEVOTHYROXINE SODIUM 0.075 MG TABLET PO SCH (05:59)
[2020-10-26 06:31] LABS: BASOPHILS % (AUTO) 0.4 % (0.0-2.0); EOSINOPHILS # (AUTO) 0.1 K/uL (0.0-0.4); EOSINOPHILS % (AUTO) 1.3 % (0.0-4.0); LYMPHOCYTES # (AUTO) 1.1 K/uL (1.0-5.5); LYMPHOCYTES % (AUTO) 22.7 % (20.5-51.5); MEAN CORPUSCULAR HEMOGLOBIN 29 pg (27-31); MEAN CORPUSCULAR HGB CONC 33 % (32-36); MEAN CORPUSCULAR VOLUME 87 fL (79.0-98.0); MONOCYTES # (AUTO) 0.5 K/uL (0.0-1.0); MONOCYTES % (AUTO) 11.2 % (1.7-9.3); NEUTROPHILS # (AUTO) 3.1 K/uL (1.8-7.7); NEUTROPHILS % (AUTO) 64.4 % (40.0-70.0); PLATELET COUNT (AUTO) 66 K/uL (130-430); RED BLOOD CELL COUNT(AUTO) 2.15 MIL/uL (4.2-6.2); RED CELL DISTRIBUTION WIDTH 18.4 % (9.0-15.0); WHITE BLOOD COUNT (AUTO) 4.9 K/uL (4.8-10.8)
[2020-10-26 06:38] LABS: CALCIUM 7.2 mg/dL (8.4-11.0); CREATININE 3.96 mg/dL (0.55-1.30); POTASSIUM 3.6 mmol/L (3.5-5.1)
--- NOTE | 2020-10-26 06:41 | NUR ---
Nutrition Update Herb Scale 11 noted. Pt admitted for Acute Respiratory failure, Septic shock Diet: NPO BMI: 41.2 kg/m2 RD to follow per nutrition care standards.
--- NOTE | 2020-10-26 07:27 | NUR ---
ENDORSEMENT PATIENT CARE ENDORSED TO DAYSHIFT RN USING NURSING SBAR.
[2020-10-26] MEDS: LevALBUTEROL HCL 1.25 MG/0.5 ML *CONC.* VIAL.NEB (XOPENEX CONC.) INH SCH ×3 (07:56→23:00)
[2020-10-26 08:24] LABS: HEMATOCRIT 18.7 % (36-48); HEMOGLOBIN 6.2 g/dL (12.0-16.0)
[2020-10-26] MEDS: NYSTATIN 15 GM TOPICAL POWDER TP SCH ×2 (09:34→20:29)
[2020-10-26] MEDS: PANTOPRAZOLE SODIUM 40 MG/VIAL (PROTONIX) IVP SCH ×2 (09:34→20:28)
[2020-10-26] MEDS: CLOTRIMAZOLE 1% TOPICAL CREAM 15 GM TP SCH ×2 (09:34→20:29)
[2020-10-26 09:46] LABS: INR 1.4 (0.8-1.2); PROTHROMBIN TIME 14.3 SECS (9.5-12.5)
[2020-10-26] MEDS ORDERED: PIPERACILLIN/TAZO 2.25G/DEX-IS 50 ML IV SCH (11:00)
[2020-10-26] MEDS ORDERED: HEPARIN SODIUM,PORCINE 5,000 UNITS/ML VIAL SUBCUT ONE (11:15)
[2020-10-26] MEDS: CEFEPIME 1 GM in D5W 50 ML IV SCH (14:02)
[2020-10-26] MEDS: FLUCONAZOLE 100 mg/ NS 50 ML IV SCH (14:02)
--- NOTE | 2020-10-26 15:29 | NUR ---
WOUND EVALUATION: Late note for 10/26/20 at 1529 secondary to patient care. Wound Consult received from Dr. Hansen. Thank you Dr. Hansen for the consult. Patient received in a [place] Bed with an IsoFlex RON mattress, drowsy, sedated, confused. Patient is unable to turn in bed independently. Herb Score is an 11. Past Medical History: Hypothyroidism, Diabetes Mellitus, Hypertension, Renal Disease (chronic), Thyroid Disease, history of Liver Cancer, Bladder Cancer (with surgery), Colon Cancer, Liver Cirrhosis (chronic alcoholic liver disease), Obesity, recent COVID-19 infection, Anemia, Diabetic Nephropathy, Diabetic Neuropathy, Cholecystectomy. Recent Labs: WBC 4.9, RBC 2.15, hemoglobin 6.2, hematocrit 18.7, platelets 66, sodium 146, chloride 112, CO2 19, BUN 65, creatinine 3.96, GFR 12, glucose 122, POC glucose 128, calcium 7.2, phosphorus 5.0, BNP 150, amylase 101, lipase 491, albumin 2.1, PT 14.3, INR 1.4, D-dimer 2010. Microbiology: Blood culture results x2 in progress. MRSA screen results negative. Urine culture results in progress, endotracheal sputum culture results in progress.. Intrinsic factors that delay wound healing: Diabetes Mellitus, Renal Disease, Liver Cancer, Colon Cancer, Liver Cirrhosis, Hypoalbuminemia. Extrinsic factors that delay wound healing: Immobility. Wound Assessment: 1. Buttocks: Stage II pressure ulcer, present on admission. Site had IAD with MASD (erythema and non-intact skin) that progressed to a stage II pressure ulcer. Open area has 100% red tissue. No odor, scant sanguineous drainage. Periwound intact. Surrounding tissue has dull red erythema, and scar tissue is present on buttocks and sacral areas. Wound measures 10.0 cm x 13.0 cm. Recommend: Cleanse wound with normal saline. Apply Calmoseptine cream to the wound and periwound. Apply Venelex ointment to any portion of wound not covered by Calmoseptine cream. Perform site care daily, and as needed for dressing soiling or dislodgment. 2. Left Buttock near Ischium: Gluteal cleft area has Intertrigo with erythema and a linear non-intact skin area along the sulcus fold area, present on admission. Non-intact skin area has 100% pink tissue. No odor, scant serous drainage. Area is moist from body folds. Non-intact skin area measures 0.2 cm x 8.3 cm. Recommend: Cleanse involved area with normal saline. Gently pat dry. Apply antifungal powder to involved area. Cut Inter-dry AG cloth to size and place into involved area. Perform site care twice daily and as needed for soiling. Change Inter-dry AG cloth every 5 days, and as needed for dressing soiling. 3. Right Buttock: Stage II pressure ulcer, present on admission. Wound bed has 100% red tissue. No odor, scant sanguineous drainage. Michelle-wound intact. Surrounding tissue has dull red erythema, and scar tissue is present on buttocks and sacral areas. Wound measures 2.0 cm x 2.4 cm. 4. Right Buttock, Inferior to Site 3: Stage II pressure ulcer, present on admission. Wound bed has 100% red tissue. No odor, scant sanguineous drainage. Michelle-wound intact. Surrounding tissue has dull red erythema, and scar tissue is present on buttocks and sacral areas. Wound measures 0.5 cm x 3.5 cm. Recommend: Cleanse wounds with normal saline. Apply Calmoseptine cream to michelle-wounds. Apply Venelex ointment to any portion of wound not covered by Calmoseptine cream. Cover sites with foam dressing. Perform site care daily, and as needed for dressing soiling or dislodgment. 5. Right Posterior Proximal Thigh: Dull red erythema from IAD with MASD, present on admission. No odor, no drainage. Non-intact skin area has 100% red tissue. No odor, no drainage. Non-intact skin area measures 3.5 cm x 2.2 cm. Recommend: Cleanse wound with normal saline. Apply Calmoseptine cream to the wound and periwound. Apply Venelex ointment to any portion of wound not covered by Calmoseptine cream. Perform site care daily, and as needed for dressing soiling or dislodgment. 6. Left Posterior Thigh: Dull red erythema from IAD, present on admission. No odor, no drainage. 7. Right Posterior Thigh: Dull red erythema from IAD, present on admission. No odor, no drainage. Recommend: Cleanse involved areas with mild soap and water. Pat dry. Apply Calmoseptine cream to involved areas. Perform site care 4 times daily, and as needed for soiling. 8. Left Abdominal Fold: Intertrigo with erythema and MASD from IAD, present on admission. Non-intact skin area has 100% pink tissue. No odor, scant serous drainage. Non-intact skin area measures 0.4 cm x 10.7 cm. 9. Left Abdominal Fold: Intertrigo with erythema and MASD from IAD, present on admission. Non-intact skin area has 100% red tissue. No odor, scant sanguineous drainage. Non-intact skin area measures 1.0 cm x 14.5 cm. 10. Right Inguinal area: Intertrigo with erythema and MASD from IAD, present on admission. Non-intact skin area has 100% red tissue. No odor, scant sanguineous drainage. Non-intact skin area measures 1.0 cm x 7.0 cm. Recommend: Cleanse involved area with normal saline. Gently pat dry. Apply antifungal powder to involved areas. Cut Inter-dry AG cloth to size and place into involved areas. Perform site care twice daily and as needed for soiling. Change Inter-dry AG cloth every 5 days, and as needed for dressing soiling. 11. Michelle-Rectal area: Erythema, erosion and MASD from IAD, present on admission. Non-intact skin area around the rectum has 100% red tissue. No odor, scant sanguineous drainage. Recommend: Cleanse involved areas with mild soap and water. Pat dry. Apply Calmoseptine cream to involved areas. Perform site care 4 times daily, and as needed for soiling. 12. Left Heel: Area of non-blanchable redness with dark discoloration. Possible sDTI. Site measures 3.5 cm x 3.5 cm. 13. Right Heel: Area of non-blanchable redness with dark discoloration. Possible sDTI. Site measures 5.0 cm x 5.0 cm. Recommend: Offload, elevate and float bilateral heels with one pillow lengthwise under each extremity at all times. Also recommend: Reposition patient side to side only every 2 hours with pillow support and off-load pressure areas with pillows for pressure re-distribution. Offload, elevate and float bilateral heels with one pillow lengthwise under each extremity at all times. Perform skin care and monitor skin integrity Q shift. Use Calmoseptine cream on buttocks and other moisture susceptible areas QID and as needed for soiling, and use Hydraguard barrier cream to dry and scaly skin areas BID. Initiate low air-loss therapy. Addendum: 10/27/20 at 1451 by Ashwin Caraballo RN Error. Please disregard use of Hydraguard barrier cream to dry and scaly skin areas BID
[2020-10-26] MEDS: metroNIDAZOLE 250 mg/NS 50 ML IV SCH ×2 (16:16→20:28)
--- NOTE | 2020-10-26 19:30 | NUR ---
REPORT RECEIVED FROM DAY SHIFT NURSE. DIPRIVAN DRIP IS INFUSING WELL VIA RIJ @ 10MCG/KG/MIN. IVF OF NS IS INFUSING WELL AT 150ML/HR VIA RIJ. FALL AND SAFETY PRECAUTIONS ARE IN PLACE.
--- NOTE | 2020-10-26 21:45 | NUR ---
DR. SESAY HERE TO SEE PT.
[2020-10-27] VITALS (30 sets, daily range): BP systolic 104–145
[2020-10-27] MEDS: INSULIN REGULAR, HUMAN 100 UNITS/ML, 10 ML VIAL (humuLIN R) SUBCUT PRN ×2 (00:23→18:10)
--- NOTE | 2020-10-27 00:23 | NUR ---
ACCUCHECK 84 AND SKIN REMAINS WARM AND DRY TO TOUCH. NO INSULIN COVERAGE NEEDED.
--- NOTE | 2020-10-27 00:30 | NUR ---
NGT FEEDING OF NEPRO STARTED AT 40ML/HR. HOB ELEVATED 45 DEGREES TO PREVENT ASPIRATION.
[2020-10-27] MEDS: NACL 0.9% 1,000 ML IV SCH ×4 (02:15→20:59)
--- NOTE | 2020-10-27 03:50 | NUR ---
OLD RECTAL TUBE NOTED TO BE OUT. NEW RECTAL TUBE INSERTED WITH THE ASSISTANCE OF NURSES ROLANDA AND LEOPOLDO.
[2020-10-27] MEDS: metroNIDAZOLE 250 mg/NS 50 ML IV SCH ×3 (04:32→20:58)
[2020-10-27] MEDS: LEVOTHYROXINE SODIUM 0.075 MG TABLET PO SCH (06:20)
--- NOTE | 2020-10-27 07:27 | NUR ---
REPORT GIVEN TO DAY SHIFT NURSE.
--- NOTE | 2020-10-27 07:30 | NUR ---
INITIAL NOTES RECEIVED PT, INTUBATED, TOLERATING VENT SETTINGS AT THIS TIME. ON DIPRIVAN DRIP AT 10MCG/KG/MIN. IVF OF NS INFUSING WELL.
[2020-10-27] MEDS: LevALBUTEROL HCL 1.25 MG/0.5 ML *CONC.* VIAL.NEB (XOPENEX CONC.) INH SCH ×3 (07:45→23:30)
--- NOTE | 2020-10-27 08:10 | NUR ---
MD ROUNDS SEEN BY DR. SESAY WITH NEW ORDERS, SEDATION AND FEEDING HOLD AT THIS TIME ORDERED. RT INFORMED FOR CPAP TRIAL
--- NOTE | 2020-10-27 08:31 | NUR ---
0830 PT PLACED ON CPAP PER DR SHAMA BOUDREAUX. SAT 99% CPAP5 PS 10. WILL CONT TO MONITOR. Addendum: 10/27/20 at 0832 by Vandana Solorzano RT Amended: Links added.
[2020-10-27 08:58] LABS: BASOPHILS % (AUTO) 0.5 % (0.0-2.0); EOSINOPHILS # (AUTO) 0.1 K/uL (0.0-0.4); EOSINOPHILS % (AUTO) 0.9 % (0.0-4.0); HEMATOCRIT 28.8 % (36-48); HEMOGLOBIN 9.9 g/dL (12.0-16.0); LYMPHOCYTES # (AUTO) 1.7 K/uL (1.0-5.5); LYMPHOCYTES % (AUTO) 20.1 % (20.5-51.5); MEAN CORPUSCULAR HEMOGLOBIN 30 pg (27-31); MEAN CORPUSCULAR HGB CONC 34 % (32-36); MEAN CORPUSCULAR VOLUME 87 fL (79.0-98.0); MONOCYTES % (AUTO) 11.9 % (1.7-9.3); NEUTROPHILS # (AUTO) 5.5 K/uL (1.8-7.7); PLATELET COUNT (AUTO) 62 K/uL (130-430); RED BLOOD CELL COUNT(AUTO) 3.31 MIL/uL (4.2-6.2); RED CELL DISTRIBUTION WIDTH 17.5 % (9.0-15.0); WHITE BLOOD COUNT (AUTO) 8.3 K/uL (4.8-10.8)
[2020-10-27 09:03] LABS: CREATININE 2.94 mg/dL (0.55-1.30)
[2020-10-27 09:29] LABS: POTASSIUM 2.8 mmol/L (3.5-5.1)
[2020-10-27 09:30] LABS: CALCIUM 6.7 mg/dL (8.4-11.0)
[2020-10-27] MEDS: PANTOPRAZOLE SODIUM 40 MG/VIAL (PROTONIX) IVP SCH ×2 (09:42→20:58)
[2020-10-27] MEDS: NYSTATIN 15 GM TOPICAL POWDER TP SCH ×2 (09:43→20:59)
[2020-10-27] MEDS: CLOTRIMAZOLE 1% TOPICAL CREAM 15 GM TP SCH ×2 (09:43→20:59)
[2020-10-27 10:05] LABS: NEUTROPHILS % (AUTO) 66.6 % (40.0-70.0)
[2020-10-27] MEDS ORDERED: KCL 40 mEq in 100 mL (PREMIX) 100 ML IV ONE (10:30)
[2020-10-27] MEDS ORDERED: CALCIUM GLUCONATE 1 GM in NS 100 ML IV ONE (10:30)
--- NOTE | 2020-10-27 10:30 | NUR ---
Notes Patient on CPAP, tolerating so far, she open her eyes, but patient does not follow command.
[2020-10-27] MEDS: CEFEPIME 1 GM in D5W 50 ML IV SCH (11:31)
--- NOTE | 2020-10-27 11:48 | NUR ---
1140 PT PLACED BACK TO AC. AMADOR AWARE. Addendum: 10/27/20 at 1149 by Vandana Solorzano RT Amended: Links added.
[2020-10-27] MEDS: FLUCONAZOLE 100 mg/ NS 50 ML IV SCH (12:10)
[2020-10-27] MEDS: BALSAM PERU/CASTOR OIL 60 GM OINT...G. TP SCH (13:30)
--- NOTE | 2020-10-27 20:51 | NUR ---
Patient intubated , oral suction up right position thick white sputum tolerate chest movement symmetrical also unlabored SAFETY MEASURES IMPLEMENTED / .
--- NOTE | 2020-10-27 21:15 | NUR ---
Diprivan Drip @ 12 mcg kg minute patient Resting is Responsive to light touch , skin dry warm .
--- NOTE | 2020-10-27 21:44 | NUR ---
Turning & Reposition patient off loading with pillows comfort measures implemented kept clean also dry as needed activity tolerated / .
--- NOTE | 2020-10-27 23:03 | NUR ---
SBAR Report given to Va AMADOR .
--- NOTE | 2020-10-27 23:30 | NUR ---
Received report from Demarcus AMADOR, patient VSS.
[2020-10-28] VITALS (36 sets, daily range): BP systolic 95–144
--- NOTE | 2020-10-28 00:10 | NUR ---
Verified placement for NGT, unable to verify placement, will put in new NGT. New ngt placed on right nare, patient tolerated it well, and auscultation placement verified.
[2020-10-28] MEDS: INSULIN REGULAR, HUMAN 100 UNITS/ML, 10 ML VIAL (humuLIN R) SUBCUT PRN (00:55)
[2020-10-28] MEDS: metroNIDAZOLE 250 mg/NS 50 ML IV SCH ×3 (03:50→21:13)
[2020-10-28] MEDS: NACL 0.9% 1,000 ML IV SCH ×4 (03:51→21:13)
[2020-10-28] MEDS: LEVOTHYROXINE SODIUM 0.075 MG TABLET PO SCH (06:46)
[2020-10-28 07:08] LABS: ALBUMIN 1.9 g/dL (3.4-4.8); CREATININE 3.15 mg/dL (0.55-1.30); TOTAL BILIRUBIN 0.8 mg/dL (0.0-1.0)
[2020-10-28 07:18] LABS: BASOPHILS % (AUTO) 0.3 % (0.0-2.0); EOSINOPHILS # (AUTO) 0.1 K/uL (0.0-0.4); EOSINOPHILS % (AUTO) 1.9 % (0.0-4.0); HEMOGLOBIN 9.2 g/dL (12.0-16.0); LYMPHOCYTES # (AUTO) 1.4 K/uL (1.0-5.5); LYMPHOCYTES % (AUTO) 19.4 % (20.5-51.5); MEAN CORPUSCULAR HEMOGLOBIN 30 pg (27-31); MEAN CORPUSCULAR HGB CONC 34 % (32-36); MEAN CORPUSCULAR VOLUME 88 fL (79.0-98.0); MONOCYTES # (AUTO) 0.8 K/uL (0.0-1.0); MONOCYTES % (AUTO) 11.6 % (1.7-9.3); NEUTROPHILS # (AUTO) 4.7 K/uL (1.8-7.7); NEUTROPHILS % (AUTO) 66.8 % (40.0-70.0); PLATELET COUNT (AUTO) 68 K/uL (130-430); RED BLOOD CELL COUNT(AUTO) 3.08 MIL/uL (4.2-6.2); RED CELL DISTRIBUTION WIDTH 17.5 % (9.0-15.0)
[2020-10-28] MEDS: LevALBUTEROL HCL 1.25 MG/0.5 ML *CONC.* VIAL.NEB (XOPENEX CONC.) INH SCH ×3 (07:32→23:13)
--- NOTE | 2020-10-28 07:35 | NUR ---
RT NOTES Per Dr Lai's order, vent to CPAP 5 PS 10. No adverse reactions noted. Will monitor pt. Rn aware.
--- NOTE | 2020-10-28 07:56 | NUR ---
INITIAL NOTES OPEN HER EYES, BUT DOES NOT FOLLOW COMMAND YET, PT ON CPAP AROUND 0735, TOLERATING SO FAR, OFF SEDATION AND FEEDING AT THIS TIME, AFEBRILE, ORAL CARE AND SUNCTIONING DONE.
[2020-10-28 08:01] LABS: POTASSIUM 2.8 mmol/L (3.5-5.1)
[2020-10-28 08:02] LABS: CALCIUM 6.8 mg/dL (8.4-11.0)
[2020-10-28 08:06] LABS: HEPATITIS A AB, IgM Negative (Negative); HEPATITIS B CORE AB, IgM Negative (Negative); HEPATITIS B SURFACE AG Negative (Negative)
[2020-10-28] MEDS: PANTOPRAZOLE SODIUM 40 MG/VIAL (PROTONIX) IVP SCH ×2 (08:25→21:22)
[2020-10-28] MEDS: CLOTRIMAZOLE 1% TOPICAL CREAM 15 GM TP SCH ×2 (08:26→21:22)
[2020-10-28] MEDS: NYSTATIN 15 GM TOPICAL POWDER TP SCH ×2 (08:26→21:21)
[2020-10-28] MEDS: BALSAM PERU/CASTOR OIL 60 GM OINT...G. TP SCH (08:28)
[2020-10-28] MEDS ORDERED: POTASSIUM CHLORIDE 60 MEQ in NS 500 ML IV ONE (09:30)
--- NOTE | 2020-10-28 09:30 | NUR ---
NOTES- patient's is tolerating CPAP MODE, BUT ONLY FOLLOWS VOICE COMMAND AND CANNOT STAY AWAKE.
--- NOTE | 2020-10-28 09:50 | NUR ---
Spoke to Dr. trivedi and updated on patient's. New orders received also wants Kannan to be off completely.
--- NOTE | 2020-10-28 10:00 | NUR ---
RT NOTES Vent settings back to AC per Dr Lai.
[2020-10-28] MEDS ORDERED: LACTULOSE 20 GM/30 ML UDC PO ONE (10:15)
--- NOTE | 2020-10-28 10:21 | NUR ---
NOTES- DIALYSIS NURSE AT BEDSIDE TO DO DIALYSIS.
[2020-10-28] MEDS: CEFEPIME 1 GM in D5W 50 ML IV SCH (11:33)
[2020-10-28] MEDS ORDERED: HEPARIN SODIUM,PORCINE 5,000 UNITS/ML VIAL MC ONE ×2 (11:45)
--- NOTE | 2020-10-28 12:00 | NUR ---
HIGH ALERT NOTE: Called Dr. GOODMAN back at [phone] identified within the medical roster to verify physician authenticity.
--- NOTE | 2020-10-28 13:30 | NUR ---
HD done with 1700 OUTPUT
[2020-10-28] MEDS: FLUCONAZOLE 100 mg/ NS 50 ML IV SCH (13:36)
--- NOTE | 2020-10-28 15:00 | NUR ---
NOTES PATIENT IS FULLY AWAKE SINCE DIALYSIS STARTED, GETS AGITATED AT TIMES, PT IS OFF SEDATION. WILL CALL MD.
[2020-10-28] MEDS: DEXMEDETOMIDINE HCL 200 MCG in NS 48 ML IV PRN ×2 (17:19→21:29)
[2020-10-28] MEDS: LACTULOSE 20 GM/30 ML UDC PO SCH (17:21)
--- NOTE | 2020-10-28 19:35 | NUR ---
INITIAL NOTE PATIENT IS STABLE AND LAYING IN BED. NO S/S OF RESPIRATORY DISTRESS NOTED. CALL LIGHT IN REACH. PATIENT UNSUCCESSFULLY DEMONSTRATES USAGE OF CALL LIGHT. WILL CONTINUE TO MONITOR. BED IS LOCKED, ALARMED, AND AT THE LOWEST POSITION. FALL, SAFETY, ASPIRATION, CONTACT, AND RESPIRATORY PRECAUTIONS WILL BE IN PLACE THROUGHOUT THE SHIFT.
--- NOTE | 2020-10-28 22:00 | NUR ---
FAMILY AT BED IN FRONT OF THE DOOR AT THIS TIME. UPDATED FAMILY. FAMILY REQUESTED TO CALL HER IF PT WILL BE TITRATING DOWN. KELLEY (DAUGHTER) [phone].
[2020-10-29] VITALS (36 sets, daily range): BP systolic 61–156
[2020-10-29] MEDS: INSULIN REGULAR, HUMAN 100 UNITS/ML, 10 ML VIAL (humuLIN R) SUBCUT PRN ×4 (00:15→18:08)
[2020-10-29] MEDS: LACTULOSE 20 GM/30 ML UDC PO SCH ×3 (02:00→18:00)
[2020-10-29] MEDS: DEXMEDETOMIDINE HCL 200 MCG in NS 48 ML IV PRN ×5 (03:52→22:30)
[2020-10-29] MEDS: metroNIDAZOLE 250 mg/NS 50 ML IV SCH (03:52)
[2020-10-29] MEDS: NACL 0.9% 1,000 ML IV SCH (05:43)
[2020-10-29] MEDS: LEVOTHYROXINE SODIUM 0.075 MG TABLET PO SCH (06:01)
--- NOTE | 2020-10-29 07:01 | NUR ---
sbar report endorsed to am nurse.
[2020-10-29 07:07] LABS: CALCIUM 7.1 mg/dL (8.4-11.0); CREATININE 2.57 mg/dL (0.55-1.30); POTASSIUM 3.1 mmol/L (3.5-5.1)
[2020-10-29] MEDS: LevALBUTEROL HCL 1.25 MG/0.5 ML *CONC.* VIAL.NEB (XOPENEX CONC.) INH SCH ×3 (07:41→23:57)
--- NOTE | 2020-10-29 08:00 | NUR ---
Patient intubated, AC 20, Vt 550, PEEP 5, 40%, appears restless at times to stimuli. SR on monitor. IV site on left chest, #20, and RIJ, intact and patent..appears restless at times. F/C in place. Call light in place, bed locked at the lowest position, will continue to monitor.
[2020-10-29] MEDS: PANTOPRAZOLE SODIUM 40 MG/VIAL (PROTONIX) IVP SCH (08:09)
[2020-10-29] MEDS: BALSAM PERU/CASTOR OIL 60 GM OINT...G. TP SCH (08:10)
[2020-10-29] MEDS: NYSTATIN 15 GM TOPICAL POWDER TP SCH (08:10)
[2020-10-29] MEDS: CLOTRIMAZOLE 1% TOPICAL CREAM 15 GM TP SCH (08:10)
--- NOTE | 2020-10-29 10:10 | NUR ---
Patient's daughter, Arabella, indicated that her family wants the patient to be on DNR, the decision that is expressed by the patient. Will inform Dr. Hansen
--- NOTE | 2020-10-29 10:30 | NUR ---
Dr. Hansen spoke to the family member about patient's code status.
[2020-10-29] MEDS: CEFEPIME 1 GM in D5W 50 ML IV SCH (11:03)
[2020-10-29] MEDS: FLUCONAZOLE 100 mg/ NS 50 ML IV SCH (11:53)
--- NOTE | 2020-10-29 14:18 | NUR ---
HD NURSE INFORMED RN AND DIRECTOR OF RESTAURANT CONSULT THAT THE HD COULD NOT CONTINUE DUE TO POOR FLOW. DIRECTOR OF RESTAURANT ADVISED TO ORDER A SURGEON FOR HD CATHETER REPLACEMENT. DR. LIANG IS CALLED, AWAITING CALL BACK.
[2020-10-29] MEDS: MEROPENEM 500 MG in NS 50 ML IV SCH (14:54)
--- NOTE | 2020-10-29 15:10 | NUR ---
DR. LIANG IS REACHED. SITUATION IS INFORMED, ORDER IS GIVEN.
--- NOTE | 2020-10-29 16:00 | NUR ---
DR. MADRID RETURNS CALL. SITUATION IS RELAYED. HE STATES HE WILL BE HERE TOMORROW TO PERFORM THE REPLACEMENT OF JAYNA CATHETER.
--- NOTE | 2020-10-29 17:35 | NUR ---
Nutrition F/U Admitting Diagnosis: Acute respiratory failure, septic shock Medical History Comment: Per MD note: DM, CKD, ETOH liver disease, Hypotension, ARF, Hypothyroidism, Thyroid Disease, Hx Liver Cancer, Bladder Cancer, Colon Cancer, Obesity, recent COVID-19 infection, Anemia, Diabetic Nephropathy, Diabetic Neuropathy, Cholecystectomy. Subjective Information: Per MD note: pt now DNR and DNI per family after extubation. Hard chart was reviewed again and open wounds were noted. Will recommend Rigo BID to help w/ wound healing. Pt was seen bedside by international trade manager and RD. Wt of 246# was taken using bedscale. Pt was intubated and sedated. Nepro was infusing @ 40ml/hr (goal rate). Current EN formula and rate appropriate. Per EMR review: 15ml GRV; 2 BMs today; Firm abdomen w/ active bowel sounds; Herb scale: 11 per Box Loader note 10/26: 1. Buttocks: Stage II pressure ulcer, present on admission; 2. Left Buttock near Ischium; 3. Right Buttock: Stage II pressure ulcer, present on admission; 4. Right Buttock, Inferior to Site 3: Stage II pressure ulcer, present on admission; 5. Right Posterior Proximal Thigh: Dull red erythema from IAD with MASD, present on admission; 6. Left Posterior Thigh: Dull red erythema from IAD, present on admission, no odor, no drainage; 7. Right Posterior Thigh: Dull red erythema from IAD, present on admission, no odor, no drainage; 8. Left Abdominal Fold: Intertrigo with erythema and MASD from IAD, present on admission; 9. Left Abdominal Fold: Intertrigo with erythema and MASD from IAD, present on admission; 10. Right Inguinal area: Intertrigo with erythema and MASD from IAD, present on admission; 11. Michelle-Rectal area: Erythema, erosion and MASD from IAD, present on admission; 12. Left Heel: Area of non-blanchable redness with dark discoloration. Possible sDTI; 13. Right Heel: Area of non-blanchable redness with dark discoloration. Current EN: Nepro @ 40ml/hr w/ 50ml free water flush Q12hr via GT Provides: 1728 kcals/day, 78g protein/day, 798ml fluids/day Meets: 92% estimated calorie needs & 103% upper end of estimated protein needs. Pertinent Medications: Protonix IV, Mycostatin, D5W @ 100mls/hr (408kcals), Synthroid Pertinent Labs: BUN 29H, Cre 2.57H, BG 3017H, POC BG 262H Height: 5'2'' Weight: 246#/111.6kg Body Mass Index: 45.0 kg/m2 %IBW: 224 [place]/Adjusted Body Weight: IBW: 110#/50kg, AdjBW: 139#/63kg Weight Status: Morbidly Obese Last BM: Oct 29, 2020 Difficulty With: Swallowing Estimated Energy Expenditure (kcals/day) 1884 ([id number] modified eq. for vent, critical care Ve: 11.1/Temp: 36.6 degrees C) Estimated Protein Required (g/day) 63-76 (1-1.2 gm/kg AdjBW for geriatric maintenance, ARF, CKD) Estimated Fluid Required (l/day) Per MD d/t ARF/CKD Problem/Etiology/Signs/Symptoms Increased risk for malnutrition RT morbid obesity AEB BMI 41.2 kg/m2 and 205% IBW. (*Ongoing) Increased nutritional needs RT metabolic demands AEB multiple wounds. (*New) Expected Outcomes/Goals Monitor EN tolerance and intake w/ goal of pt meeting more than 75% of estimated nutritional needs, labs trending WNL, normal GI function, skin integrity/wt maintenance. Dietitian Recommendations * Recommend: Nepro @ 40ml/hr (goal rate) w/ Rigo BID, Free Water Flush: 50ml Q12hr via GT Provides: 1888 kcals/day, 83g protein/day, 798ml fluids/day Meets: 100% estimated calorie needs & 109% upper end of estimated protein needs. Follow Up High Risk: F/U in 2-3 days
--- NOTE | 2020-10-29 17:36 | NUR ---
Dietitian Recommendations * Recommend: Nepro @ 40ml/hr (goal rate) w/ Rigo BID, Free Water Flush: 50ml Q12hr via GT Provides: 1888 kcals/day, 83g protein/day, 798ml fluids/day Meets: 100% estimated calorie needs & 109% upper end of estimated protein needs. LP, RD Please refer to Nutrition F/U for details.
--- NOTE | 2020-10-29 18:10 | NUR ---
BLOOD SUGAR 181, NO COVERAGE NEEDED.
[2020-10-30] VITALS (34 sets, daily range): BP systolic 104–167
[2020-10-30] MEDS: CLOTRIMAZOLE 1% TOPICAL CREAM 15 GM TP SCH ×3 (00:32→22:44)
[2020-10-30] MEDS: NYSTATIN 15 GM TOPICAL POWDER TP SCH ×3 (00:32→22:44)
[2020-10-30] MEDS: PANTOPRAZOLE SODIUM 40 MG/VIAL (PROTONIX) IVP SCH ×3 (00:32→22:43)
[2020-10-30] MEDS: MEROPENEM 500 MG in NS 50 ML IV SCH ×4 (00:33→22:43)
[2020-10-30] MEDS: INSULIN REGULAR, HUMAN 100 UNITS/ML, 10 ML VIAL (humuLIN R) SUBCUT PRN ×5 (00:42→23:18)
[2020-10-30] MEDS: DEXMEDETOMIDINE HCL 200 MCG in NS 48 ML IV PRN ×6 (01:00→23:13)
[2020-10-30] MEDS: LACTULOSE 20 GM/30 ML UDC PO SCH ×3 (02:00→19:15)
[2020-10-30] MEDS: LEVOTHYROXINE SODIUM 0.075 MG TABLET PO SCH (07:02)
[2020-10-30 07:23] LABS: CALCIUM 7.5 mg/dL (8.4-11.0); CREATININE 2.78 mg/dL (0.55-1.30)
[2020-10-30] MEDS: LevALBUTEROL HCL 1.25 MG/0.5 ML *CONC.* VIAL.NEB (XOPENEX CONC.) INH SCH ×3 (07:24→23:07)
[2020-10-30] MEDS ORDERED: DEXMEDETOMIDINE HCL 200 MCG/2 ML VIAL IV ONE ×2 (07:26→23:16)
[2020-10-30] MEDS ORDERED: POTASSIUM CHLORIDE 20 MEQ/PKT PACKET PO ONE (09:15)
[2020-10-30 10:10] LABS: BASOPHILS % (AUTO) 0.5 % (0.0-2.0); EOSINOPHILS # (AUTO) 0.3 K/uL (0.0-0.4); EOSINOPHILS % (AUTO) 4.3 % (0.0-4.0); HEMATOCRIT 31.1 % (36-48); HEMOGLOBIN 10.3 g/dL (12.0-16.0); LYMPHOCYTES # (AUTO) 1.3 K/uL (1.0-5.5); LYMPHOCYTES % (AUTO) 21.1 % (20.5-51.5); MEAN CORPUSCULAR HEMOGLOBIN 30 pg (27-31); MEAN CORPUSCULAR HGB CONC 33 % (32-36); MEAN CORPUSCULAR VOLUME 90 fL (79.0-98.0); MONOCYTES # (AUTO) 0.5 K/uL (0.0-1.0); MONOCYTES % (AUTO) 8.4 % (1.7-9.3); NEUTROPHILS % (AUTO) 65.7 % (40.0-70.0); RED BLOOD CELL COUNT(AUTO) 3.45 MIL/uL (4.2-6.2); RED CELL DISTRIBUTION WIDTH 18.1 % (9.0-15.0); WHITE BLOOD COUNT (AUTO) 6.1 K/uL (4.8-10.8)
[2020-10-30] MEDS: MENTHOL/ZINC OXIDE 113 GM OINT. TP PRN (10:13)
[2020-10-30] MEDS: BALSAM PERU/CASTOR OIL 60 GM OINT...G. TP SCH (10:13)
[2020-10-30 13:28] LABS: PLATELET COUNT (AUTO) 71 K/uL (130-430)
--- NOTE | 2020-10-30 19:30 | NUR ---
Opening Note Received report from AM nurse using SBAR approach.
--- NOTE | 2020-10-30 21:15 | NUR ---
Family sister, Sheba, and daughter, Arabella, came to visit patient. Answered all questions and provided updates.
--- NOTE | 2020-10-30 21:20 | NUR ---
Family Niece and nephew came to visit patient. Answered all questions and provided updates.
--- NOTE | 2020-10-30 23:00 | NUR ---
MD Dr. Simonium in to see patient. Informed him of patient's distended abdomen and he stated he will order an abdominal ultrasound.
[2020-10-31] VITALS (30 sets, daily range): BP systolic 89–163
--- NOTE | 2020-10-31 01:00 | NUR ---
DR LENARD Lobo notified regarding pt becoming agitated and restless. Orders received for Ativan 1mg Q 4 Hrs PRN restlessness/or agitation
[2020-10-31] MEDS ORDERED: DEXMEDETOMIDINE HCL 200 MCG/2 ML VIAL IV ONE ×4 (01:07→08:50)
[2020-10-31] MEDS ORDERED: LORazepam 2 MG/ML VIAL ONE ×2 (01:14→19:14)
[2020-10-31] MEDS: LACTULOSE 20 GM/30 ML UDC PO SCH ×3 (01:34→21:22)
[2020-10-31] MEDS: DEXMEDETOMIDINE HCL 200 MCG in NS 48 ML IV PRN ×5 (02:30→21:33)
[2020-10-31] MEDS: LEVOTHYROXINE SODIUM 0.075 MG TABLET PO SCH (06:09)
[2020-10-31] MEDS: INSULIN REGULAR, HUMAN 100 UNITS/ML, 10 ML VIAL (humuLIN R) SUBCUT PRN ×3 (06:18→21:18)
[2020-10-31] MEDS: LevALBUTEROL HCL 1.25 MG/0.5 ML *CONC.* VIAL.NEB (XOPENEX CONC.) INH SCH ×3 (07:16→23:07)
[2020-10-31 08:41] LABS: CALCIUM 7.5 mg/dL (8.4-11.0); CREATININE 2.86 mg/dL (0.55-1.30); POTASSIUM 3.5 mmol/L (3.5-5.1)
[2020-10-31] MEDS: PANTOPRAZOLE SODIUM 40 MG/VIAL (PROTONIX) IVP SCH ×2 (08:59→21:21)
[2020-10-31] MEDS: MEROPENEM 500 MG in NS 50 ML IV SCH ×2 (08:59→21:22)
[2020-10-31] MEDS: BALSAM PERU/CASTOR OIL 60 GM OINT...G. TP SCH (09:02)
[2020-10-31] MEDS: CLOTRIMAZOLE 1% TOPICAL CREAM 15 GM TP SCH ×2 (09:02→21:23)
[2020-10-31] MEDS: NYSTATIN 15 GM TOPICAL POWDER TP SCH ×2 (09:02→21:24)
[2020-10-31 09:39] LABS: BASOPHILS % (AUTO) 0.6 % (0.0-2.0); EOSINOPHILS # (AUTO) 0.2 K/uL (0.0-0.4); EOSINOPHILS % (AUTO) 3.9 % (0.0-4.0); HEMATOCRIT 29.4 % (36-48); LYMPHOCYTES # (AUTO) 1.1 K/uL (1.0-5.5); LYMPHOCYTES % (AUTO) 21.1 % (20.5-51.5); MEAN CORPUSCULAR HEMOGLOBIN 30 pg (27-31); MEAN CORPUSCULAR HGB CONC 34 % (32-36); MEAN CORPUSCULAR VOLUME 89 fL (79.0-98.0); MONOCYTES # (AUTO) 0.4 K/uL (0.0-1.0); MONOCYTES % (AUTO) 8.4 % (1.7-9.3); NEUTROPHILS # (AUTO) 3.5 K/uL (1.8-7.7); PLATELET COUNT (AUTO) 96 K/uL (130-430); RED CELL DISTRIBUTION WIDTH 17.6 % (9.0-15.0); WHITE BLOOD COUNT (AUTO) 5.4 K/uL (4.8-10.8)
--- NOTE | 2020-10-31 17:04 | NUR ---
16[address] ASS[address]ED TRANSFER PT TO CT SCAN. BAGGED PT. PLACED PT BACK TO VENT POST CT SCAN. Addendum: 10/31/20 at 1705 by Vandana Solorzano RT Amended: Links added.
[2020-10-31] MEDS ORDERED: HEPARIN SODIUM,PORCINE 5,000 UNITS/ML VIAL ONE (18:40)
[2020-10-31] MEDS ORDERED: LORazepam 2 MG/ML VIAL IVP ONE (19:15)
--- NOTE | 2020-10-31 20:00 | NUR ---
PATIENT WAS ACCEPTED AND ASSESS DONE PATIENT HAS AN DNR STATUS ON PRECIDEX DRIP SEDATED ON VENT TOLERATE WELL NO OTHER IVF DR OH HAD INSERTED RIGHT IJ JAYNA CATH WITH AN PIGGY TAIL USE FOR IVF , PATIENT IS TO HAVE AN HEMODIALYSIS ,TUBE FEEDING AT 40M/HR AND STABLE WILL CHECK LATE STABLE
--- NOTE | 2020-10-31 20:18 | NUR ---
DR JACKSON PAZ CHANGED THE DIALYSIS CATHETER. AWAITING CHEST XRAY TO CONFIRM PLACEMENT.
[2020-11-01] VITALS (28 sets, daily range): BP systolic 81–196
[2020-11-01] MEDS ORDERED: NOREPINEPHRINE 4 MG/4 ML VIAL IV ONE ×2 (01:23→10:34)
--- NOTE | 2020-11-01 01:30 | NUR ---
PATIENT BLOOD PRESSURE 80/50 HR 57 WAS STARTED ON LEVOPHED DRIP AT 5MCG /MIN OPEN EYES ABLE TO MOVE THE UPPER ARM NO MOVEMENT OF THE LOWER LEGS PITTY EDEMA WAS NOTICE HAD GIVEN LACTULOSE CAUSE AN VERY LARGE LIQUID BM WILL NEED AN RECTAL TUBE, NO BOWL SOUND ABDOMEN IS FRIM AND DISTENDED NEEDTO KEEP THE SKIN CLEAN PREVENT SKIN BREAK DOWN , STABLE
[2020-11-01] MEDS: LACTULOSE 20 GM/30 ML UDC PO SCH ×3 (02:00→18:26)
[2020-11-01] MEDS: DEXMEDETOMIDINE HCL 200 MCG in NS 48 ML IV PRN ×5 (05:02→22:44)
--- NOTE | 2020-11-01 05:30 | NUR ---
PATIENT CONDITION NO CHANGE ON LEVOPHED 0.01 MCG AND PRECIDEX 0.8MCG ALL PATENT THRU THE RIGHT JAYNA CATH. W3ILL BE HEMODIALYSIS THIS AM STABLE WILL CONTINUED WITH PLAN OF CARE
[2020-11-01] MEDS: LORazepam 2 MG/ML VIAL IVP PRN ×2 (05:44→10:39)
[2020-11-01 07:11] LABS: CALCIUM 7.3 mg/dL (8.4-11.0); CREATININE 2.94 mg/dL (0.55-1.30)
[2020-11-01] MEDS: LevALBUTEROL HCL 1.25 MG/0.5 ML *CONC.* VIAL.NEB (XOPENEX CONC.) INH SCH ×2 (07:33→17:41)
--- NOTE | 2020-11-01 07:50 | NUR ---
MD mcarthur made rounds. updated patient current condition. ordered to decrease percedex to 0.4mcg/kg/min. noted and carried out. made aware about the critical potassium level. order received. 60meq of k neelimaer.
[2020-11-01 07:57] LABS: POTASSIUM 2.6 mmol/L (3.5-5.1)
[2020-11-01] MEDS: LEVOTHYROXINE SODIUM 0.075 MG TABLET PO SCH (08:24)
[2020-11-01] MEDS: PANTOPRAZOLE SODIUM 40 MG/VIAL (PROTONIX) IVP SCH ×2 (08:24→21:15)
[2020-11-01] MEDS: INSULIN REGULAR, HUMAN 100 UNITS/ML, 10 ML VIAL (humuLIN R) SUBCUT PRN ×3 (08:25→18:23)
--- NOTE | 2020-11-01 08:31 | NUR ---
MANUAL BARCODE PRECEDEX Precedex drip does not scan. Pharmacy notified. Spoke with Kevin, pharmacist. He is aware that the label for this drug does not scan and they are working on it. He instructed nursing to manual barcode until it is fixed. Bedside RN made aware and will manual barcode for today.
[2020-11-01] MEDS: KCL 20 mEq in 100 mL (PREMIX) 100 ML IV SCH ×3 (08:41→14:07)
--- NOTE | 2020-11-01 08:44 | NUR ---
Precedex drip can't document via manual barcode. calculation is wrong. supposed to be mcg/kg/hr. but in the emar is mcg/kg/min. pharmacist john stanford stated working on it.
--- NOTE | 2020-11-01 10:43 | NUR ---
Nutrition F/U Admitting Diagnosis: Acute respiratory failure, septic shock Medical History Comment: Per MD note: DM, CKD, ETOH liver disease, Hypotension, ARF, Hypothyroidism, Thyroid Disease, Hx Liver Cancer, Bladder Cancer, Colon Cancer, Obesity, recent COVID-19 infection, Anemia, Diabetic Nephropathy, Diabetic Neuropathy, Cholecystectomy, Chronic Liver Cirrhosis. SARS-CoV-2 ag Rapid 10/25 Negative Subjective Information: Pt remains in ICU, seen by this RD. Intubated and sedated. HD ongoing at bedside. RD s/w pt's primary RN Corrine who reports no residual or any EN issues this morning, pt has been tolerating EN well. RN also reported that pt is on precedex and sedation dose will be decreased today. RD observed EN infusing during visit. Per EMR review, pt is DNR status but family wants to continue w/ HD. Pt is S/P removal of right IJ central line, placement of new right IJ hemodialysis catheter over a guidewire with central line port. CT A&P showed small amount of ascites, hazy infiltrate and anasarca. Abdomen is firm and distended. BM 10/29 x2, Herb scale: 11. crm marketing specialist note 10/26: 1. Buttocks: Stage II pressure ulcer, present on admission; 2. Left Buttock near Ischium; 3. Right Buttock: Stage II pressure ulcer, present on admission; 4. Right Buttock, Inferior to Site 3: Stage II pressure ulcer, present on admission; 5. Right Posterior Proximal Thigh: Dull red erythema from IAD with MASD, present on admission, please see crm marketing specialist note for details. Pt w/ 4+ pitting edema to BLE, and 3+ pitting edema to BUE. EN rate: 40ml (10/31); GRV: 60ml (10/31). Pt is having diarrhea this morning and stool softeners were held per RN notes. Current EN: Nepro @ 40ml/hr, Rigo BID, 50ml free water flush Q12hr via GT x 2 days Provides: 1728 kcals/day, 78g protein/day, 798ml fluids/day Meets: 92% estimated calorie needs & 103% upper end of estimated protein needs. Pertinent Medications: Protonix IV, D5W @ 100mls/hr (408kcals), Synthroid, SSI Pertinent Labs: 11/01: Na 149H, K 2.6L, BG 260H, POC BG 206H, BUN 32H, Cre 2.94H Height: 5'2'' Weight: 246#/111.6kg. New weight: 225#/ 102kg (10/27) Body Mass Index: 45.0 kg/m2. New: BMI 41.2 kg/m2 (10/27) %IBW: 224 [place]/Adjusted Body Weight: IBW: 110#/50kg, AdjBW: 139#/63kg Weight Status: Morbidly Obese Last BM: Oct 29, 2020 Difficulty With: Swallowing Estimated Energy Expenditure (kcals/day) 1884 ([id number] modified eq. for vent, critical care Ve: 11.1/Temp: 36.6 degrees C)-RD was not able to obtain new values Estimated Protein Required (g/day) 63-76 (1-1.2 gm/kg AdjBW for geriatric maintenance, ARF, CKD) Estimated Fluid Required (l/day) Per MD d/t ARF/CKD Problem/Etiology/Signs/Symptoms Increased risk for malnutrition RT morbid obesity AEB BMI 41.2 kg/m2 and 205% IBW. (*Ongoing) Increased nutritional needs RT metabolic demands AEB multiple wounds. (*ongoing) Expected Outcomes/Goals Monitor EN tolerance and intake w/ goal of pt meeting more than 75% of estimated nutritional needs, labs trending WNL, normal GI function, skin integrity/wt maintenance. Dietitian Recommendations * Recommend: continue Nepro @ 40ml/hr (goal rate) w/ Rigo BID, Free Water Flush: 50ml Q12hr via GT Provides: 1888 kcals/day, 83g protein/day, 798ml fluids/day Meets: 100% estimated calorie needs & 109% upper end of estimated protein needs. Follow Up High Risk: F/U in 2-3 days
[2020-11-01] MEDS ORDERED: HEPARIN SODIUM,PORCINE 5,000 UNITS/ML VIAL MC ONE (10:45)
--- NOTE | 2020-11-01 10:50 | NUR ---
telephone order received from DR. Martini heparin flush 5,000 units x2 hd port. noted and carried out.
--- NOTE | 2020-11-01 10:59 | NUR ---
Dietitian Recommendations * Recommend: continue Nepro @ 40ml/hr (goal rate) w/ Rigo BID, Free Water Flush: 50ml Q12hr via GT Provides: 1888 kcals/day, 83g protein/day, 798ml fluids/day Meets: 100% estimated calorie needs & 109% upper end of estimated protein needs. Please see Nutrition F/U note for details HUSSEIN DORMAN
[2020-11-01] MEDS: CLOTRIMAZOLE 1% TOPICAL CREAM 15 GM TP SCH ×3 (11:06→21:00)
[2020-11-01] MEDS: NYSTATIN 15 GM TOPICAL POWDER TP SCH ×3 (11:07→21:00)
[2020-11-01] MEDS: BALSAM PERU/CASTOR OIL 60 GM OINT...G. TP SCH (11:07)
--- NOTE | 2020-11-01 12:00 | NUR ---
patient dialyzed 2 liters output. pt tolerated well site patent at right Internal jugular vein with pigtail. ivf and drips infusing.
--- NOTE | 2020-11-01 12:30 | NUR ---
hygiene: patient has large bowel movement yellow color. good pericare provided. chg bath, oral, skin and pericare provided. turn and reposition with pillow support. keep hob elevated to prevent aspiration.
[2020-11-01] MEDS: MEROPENEM 500 MG in NS 50 ML IV SCH ×2 (13:14→21:14)
[2020-11-01] MEDS: NOREPINEPHRINE BITARTRATE 4 MG in NS 246 ML IV PRN (14:06)
--- NOTE | 2020-11-01 14:30 | NUR ---
patient resting, no s/s of distress, levophed @ 0.01mgc/kg/min, precedex 0.4mcg/kg/hr. k- rider at 50ml/hr. right IJ bharti catheter with pigtail patent.
--- NOTE | 2020-11-01 17:00 | NUR ---
FAMILY Concerned: [id number] :daughter ( Arabella Vargas) and god daughter at bedside requested to speak with MD. about they concerned related the patient code status. able to speak with DR. Fam via phone.discuss about pt current condition. recommend to speak with DR. Hansen (admitting). 1700:family s/w DR. Hansen via phone. per daughter and god daughter MD agreed about their decision about code status ( DNR) and terminally extubated, and verbalized will put order. will follow.
--- NOTE | 2020-11-01 18:40 | NUR ---
183 MD LIANG is here informed family concerned about extubation stated "its ok" informed MD Fam and get order. 1839: Spoke with with new order received morphine drip for comfort and extubate. noted and carried out.
[2020-11-01] MEDS ORDERED: NALOXONE HCL 0.4 MG/ML AMP (NARCAN) IVP PRN (18:45)
--- NOTE | 2020-11-01 19:16 | NUR ---
endorsement report given to Oskar AMADOR.
[2020-11-01] MEDS: MORPHINE SULFATE IN 0.9 % NACL 100 ML IV PRN (19:22)
--- NOTE | 2020-11-01 19:33 | NUR ---
Comfort Measure Meds: morphine drip started 5mg/hr. bilateral soft restraint removed.
--- NOTE | 2020-11-01 20:00 | NUR ---
ORALLY INTUBATED. SUCTIONED DIONTE SMALL AMOUNT OF THICK WHIE MUCUS OBTAINED. ORAL CARE DONE. NGT FEEDING WITH NEPRO AT 40 CC/HR. RESIDUAL CHECK 0.RIGHT IJ JAYNA CATH WITH PIGTAIL DRSG D/I. 0N LEVOPHED AT 0.01 MCG/KG/MIN, PRECEDEX AT 0.6 MCG/KG/MIN, ON MORPHINE DRIP AT 5 MG/HR. RODRIGUEZ CATH PATENT DRAINING CLEAR SEVEN URINE TO GRAVITY. Addendum: 11/02/20 at 0148 by Oskar Owen RN PRECEDEX AT 0.6 MCG/KG/HR Addendum: 11/02/20 at 0250 by Oskar Owen RN LEVOPHED AT 0.1 MCG/KG/MIN
--- NOTE | 2020-11-01 20:40 | NUR ---
PT EXTUBATED. DAUGHTER, AND 2 NIECES IN ATTENDANCE. PT SUCTIONED AND PLACED ON 3L/MIN/NC.
--- NOTE | 2020-11-01 20:55 | NUR ---
MORPHINE DRIP TITRATED UP TO 7 MG/HR.
--- NOTE | 2020-11-01 22:20 | NUR ---
AT 2039 EXTUBATED PT PLACED ON 2L N/C FAMILY AT BEDSIDE. PT SUCTIONED AT THIS TIME..
[2020-11-02] VITALS (24 sets, daily range): BP systolic 40–146
--- NOTE | 2020-11-02 | NUR ---
ACCU-CHEK 251, 6 UNITS REGULAR INSULIN SQ GIVEN PER SLIDING SCALE COV. DAUGHTER AND NIECES AT BEDSIDE.
[2020-11-02] MEDS: INSULIN REGULAR, HUMAN 100 UNITS/ML, 10 ML VIAL (humuLIN R) SUBCUT PRN ×2 (00:49→06:19)
[2020-11-02] MEDS: NOREPINEPHRINE BITARTRATE 4 MG in NS 246 ML IV PRN ×3 (00:51→09:35)
[2020-11-02] MEDS: DEXMEDETOMIDINE HCL 200 MCG in NS 48 ML IV PRN ×2 (00:53→03:55)
[2020-11-02] MEDS: LACTULOSE 20 GM/30 ML UDC PO SCH ×2 (01:56→10:45)
--- NOTE | 2020-11-02 03:46 | NUR ---
BP LABILE, LEVOPHED INCREASED TO 0.13 MCG/KG/MIN.
--- NOTE | 2020-11-02 05:30 | NUR ---
MOTION PICTURE EQUIPMENT SUPERVISOR TALKED TO DAUGHTER REGARDING STATUS.
--- NOTE | 2020-11-02 06:00 | NUR ---
ACCU-CHEK 200, 2 UNITS REGULAR INSULIN SQ GIVEN PER SLIDING SCALE COV. UO 150CC. DAUGHTER STAYED AT BEDSIDE THE WHOLE NIGHT. LEVOPHED AT 0.13 MCG/KG/MIN, PRECEDEX AT 0.6 MCG/KG/HR, MORPHINE DRIP AT 7 MG/HR. REMAINS IN GUARDED CONDITION.
[2020-11-02] MEDS: LEVOTHYROXINE SODIUM 0.075 MG TABLET PO SCH (06:20)
[2020-11-02] MEDS: LevALBUTEROL HCL 1.25 MG/0.5 ML *CONC.* VIAL.NEB (XOPENEX CONC.) INH SCH ×2 (07:00→15:00)
[2020-11-02 07:30] LABS: CALCIUM 7.4 mg/dL (8.4-11.0); CREATININE 2.38 mg/dL (0.55-1.30); POTASSIUM 4.3 mmol/L (3.5-5.1)
--- NOTE | 2020-11-02 07:30 | NUR ---
AM ASSESSMENT. PT LETHARGIC, ON MORPHINE DRIP AT 7 MG/HR, IV PRECEDEX DISCONTINUED, O2 VIA NASAL CANNULA, FEEDING VIA NGT, HEAD OF BED ELEVATED, GENERALIZED EDEMA. RODRIGUEZ CATHETER WITH NO OUTPUT, WILL CONTINUE TO MONITOR PT.
[2020-11-02] MEDS: PANTOPRAZOLE SODIUM 40 MG/VIAL (PROTONIX) IVP SCH ×2 (08:35→20:41)
[2020-11-02] MEDS: MEROPENEM 500 MG in NS 50 ML IV SCH ×2 (08:35→20:41)
[2020-11-02] MEDS: NYSTATIN 15 GM TOPICAL POWDER TP SCH ×2 (08:37→20:42)
[2020-11-02] MEDS: CLOTRIMAZOLE 1% TOPICAL CREAM 15 GM TP SCH ×2 (08:37→20:41)
[2020-11-02] MEDS: BALSAM PERU/CASTOR OIL 60 GM OINT...G. TP SCH (08:38)
--- NOTE | 2020-11-02 09:08 | NUR ---
TILE INSTALLER DR GOODMAN EXAMINED PT. HE ORDERED PT TO GET HER DIALYSIS TODAY.
--- NOTE | 2020-11-02 09:30 | NUR ---
HYGIENE. TURNED AND REPOSITIONED PT IN BED. O2 SAT SEEN IN THE 70'S TO 80'S WHEN HEAD IS DOWN, REPOSITIONED PT CAREFULLY TO UPRIGHT POSITION THEN GENTLY MOVED PT TO HER SIDE, CLEANSED PT, SHEETS CHANGED, ORAL CARE. O2 SAT WENT BACK UP TO 90'S AFTER CARE.
[2020-11-02] MEDS: MORPHINE SULFATE IN 0.9 % NACL 100 ML IV PRN ×2 (09:34→22:26)
[2020-11-02] MEDS: MENTHOL/ZINC OXIDE 113 GM OINT. TP PRN (09:36)
--- NOTE | 2020-11-02 10:43 | NUR ---
CHARTER COACH DRIVER DR MATAMOROS WAS IN THE PT'S ROOM, SHE SPOKE TO PT'S DAUGHTER. KELLEY WOULD LIKE TO SPEAK WITH THE REST OF THEIR FAMILY IN REGARDS TO HOLDING THE DIALYSIS AND IV DRIP FOR BP MAINTENANCE.
--- NOTE | 2020-11-02 11:15 | NUR ---
DIALYSIS TREATMENT. PT'S DAUGHTER KELLEY IN THE ROOM, SPEAKING TO DIALYSIS NURSE. TREATMENT CANCELLED.
--- NOTE | 2020-11-02 11:20 | NUR ---
MEDS LEVOPHED DRIP OFF AT THIS HOUR. MORPHINE DRIP IN USE. PT O2 AT 3 L VIA NASAL CANNULA. FAMILY AT BEDSIDE.
--- NOTE | 2020-11-02 14:15 | NUR ---
NURSING. PT REMAINS ON MORPHINE DRIP, PT OBTUNDED, RESPIRATORY RATE 12 TO 18, FAMILY IN THE ROOM.
--- NOTE | 2020-11-02 17:12 | NUR ---
NURSING PT CONGESTED, SUCTIONED VIA NASAL CATHETER, HAD MODERATE AMOUNT OF THICK THPAA PHLEGM. NO RESPONSE MADE DURING SUCTIONING. FAMILY IN THE ROOM, DAUGHTER DECLINED ON FINGERSTICKS, LAB DRAWS AND OTHER MEDICATION BUT MORPHINE DRIP.
--- NOTE | 2020-11-02 18:40 | NUR ---
MD DR LIANG CAME IN AND WENT TO SEE PATIENT, HER FAMILY STILL IN THE ROOM.
--- NOTE | 2020-11-02 19:15 | NUR ---
change of shift.pt's info.pt.presents h/d hx,wounds,rt.inj h/d access.family has requested no additional interventions.pt.presents dnr status.signed per . pt.presents rt.inj access h/d access:bharti cath w pig-tail.ms-drip sole fluids infusing.rate/conc dose:7mg/hr=7ml/hr.pt.presents wounds.family had requested no additinoal wound care.pt.presents crystal cath.intact scant urine volume.family present.call light w/in access of the pt.
--- NOTE | 2020-11-02 20:00 | NUR ---
pt.assessed.v/s assessed values note b/p presents low status.rt.inj:bharti walker intact ms-drip infusing.pt.presents no response to tactile/verbal status.02-sat%=92%.marah walker intact scant volume present.pt.repositioned.call light w/in access of the pt. Addendum: 11/03/20 at 0442 by Sandip Travis RN i have suctioned the pt.
--- NOTE | 2020-11-02 21:00 | NUR ---
2100pmedications held per family requests.including blood glucose assessment.b/p values remain low status.call light w/in access of the pt.
--- NOTE | 2020-11-02 22:00 | NUR ---
pt.assessed.v/s assessed note b/p status low status values.rt.quintion cath intact ms-drip infusing.02-sat%=92%pt.repositioned.call light placed w/in access of the pt. Addendum: 11/03/20 at 0443 by Sandip Travis RN i have suctioned the pt.
--- NOTE | 2020-11-02 22:30 | NUR ---
i have administered ms-drip.radha;rn has co-signed per protocol.rate/dose;7mg/hr=7ml/hr.via rt.bharti cath pig-tail access.
[2020-11-03] VITALS (16 sets, daily range): BP systolic 60–83
--- NOTE | 2020-11-03 | NUR ---
pt.assessed.v/s assessed note b/p status low status.o2-sat%=96%.rt.inj bharti cath intact;ms-drip infusing.pt.present no response;tactile/verbal stimuli.pt.repositioned.call light w/in access of the pt. Addendum: 11/03/20 at 0443 by Sandip Travis RN i have suctioned the pt.
[2020-11-03] MEDS: LACTULOSE 20 GM/30 ML UDC PO SCH ×2 (02:00→10:00)
--- NOTE | 2020-11-03 02:00 | NUR ---
pt.assessed.v/s assessed values note b/p status low.02-sat%=96%.rt.inj:bharti cath intact;ms-drip infusing.crystal cath ia\intact;scant urine volume.pt.repositioned.call light placed w/in access of the pt. Addendum: 11/03/20 at 6513 by Sandip Travis RN i have suctioned the pt.
--- NOTE | 2020-11-03 04:00 | NUR ---
pt.assessed.v/s assessed note b/p values low status.rt.inj bharti cath intact iv fluids/ms-drip infusing.crystal cath intact urine present scant volume.i have suctioned the pt.pt.repositioned.02-sat%=92%.call light placed w/in access of the pt.
[2020-11-03] MEDS: LEVOTHYROXINE SODIUM 0.075 MG TABLET PO SCH (05:17)
--- NOTE | 2020-11-03 06:36 | NUR ---
pt.assessed.v/s assessed note b/p status low status.crystal cath intact scant urine volume.rt.inj:bharti cath intact iv fluids/ ms-drip, infusing.i have suctioned the pt.pt.repositioned.call light placed w/in access of the pt.
[2020-11-03] MEDS: LevALBUTEROL HCL 1.25 MG/0.5 ML *CONC.* VIAL.NEB (XOPENEX CONC.) INH SCH (07:00)
--- NOTE | 2020-11-03 07:15 | NUR ---
opening notes; received bedside report from endorsing caustic cresylate shift superintendent RN,received patient lying in bed with an IVF of NS @ 2ml per hour, and morphine drip at 7ml/h. nasal cannula @ 5 L .Rangel catheter in place draining to gravity, brandi in color. bed locked at lowest position. fall and safety precaution in place.
[2020-11-03 08:34] LABS: CALCIUM 7.7 mg/dL (8.4-11.0); CREATININE 3.34 mg/dL (0.55-1.30)
[2020-11-03] MEDS: PANTOPRAZOLE SODIUM 40 MG/VIAL (PROTONIX) IVP SCH (09:18)
[2020-11-03] MEDS: MEROPENEM 500 MG in NS 50 ML IV SCH (09:19)
[2020-11-03] MEDS: CLOTRIMAZOLE 1% TOPICAL CREAM 15 GM TP SCH (09:43)
[2020-11-03] MEDS: NYSTATIN 15 GM TOPICAL POWDER TP SCH (09:43)
[2020-11-03] MEDS: BALSAM PERU/CASTOR OIL 60 GM OINT...G. TP SCH (09:45)
[2020-11-03] MEDS: MORPHINE SULFATE IN 0.9 % NACL 100 ML IV PRN (13:26)
--- NOTE | 2020-11-03 15:30 | NUR ---
RN notes; family is at bedside
--- NOTE | 2020-11-03 15:40 | NUR ---
RN notes: is at bedside
--- NOTE | 2020-11-03 15:45 | NUR ---
RN NOTES PATIENT NOTED TO HAVE NO SPONTANEOUS RESPIRATION. NO BLOOD PRESSURE, NO PERIPHERAL PULSES, NO HEART BEAT ON AUSCULTATION, PUPILS FIXED AND DILATED. ASYSTOLE ON THE CHANGE CONTROL SPECIALIST. PATIENT CODE STATUS IS DNR. PATIENT PRONOUNCED AT 1545, WITNESSED BY DINA LORENZO, MARJORIE AND MYSELF. FAMILY AT THE BEDSIDE, NOTIFIED OF TIME OF .
--- NOTE | 2020-11-03 16:40 | NUR ---
CLINICAL NURSE EDUCATOR CALLED [facility] Department of Managing Member called contacted by RN. Spoke with Iraida. no case number.
--- NOTE | 2020-11-03 16:41 | NUR ---
[facility] by [facility] Case # pending.spoke to David.waiting for callback. Addendum: 11/03/20 at 1737 by Desire Shaw RN Vimal called back and spoke to Brandy and gave the Vimal case # [id number]
--- NOTE | 2020-11-04 13:34 | NUR ---
CM note: updated clinicals and faxed md notes, nurse's notes. The pt yesterday. Disposition 20.
== END 2020-11-03 19:21 | DRG 870 ==
LOC: SED 13:33 → SIC 15:59
PROVIDERS: ADMIT Family Medicine; ATTEND Family Medicine
PROC: 5A1D70Z Performance of Urinary Filtration, Intermittent, Less than 6 Hours Per Day (ICD-10-PCS; principal; 2020-10-25)
PROC: 5A1955Z Respiratory Ventilation, Greater than 96 Consecutive Hours (ICD-10-PCS; 2020-10-25)
PROC: 06HY33Z Insertion of Infusion Device into Lower Vein, Percutaneous Approach (ICD-10-PCS; 2020-10-25)
PROC: B54BZZA Ultrasonography of Right Lower Extremity Veins, Guidance (ICD-10-PCS; 2020-10-25)
PROC: 0BH17EZ Insertion of Endotracheal Airway into Trachea, Via Natural or Artificial Opening (ICD-10-PCS; 2020-10-25)
PROC: 30233N1 Transfusion of Nonautologous Red Blood Cells into Peripheral Vein, Percutaneous Approach (ICD-10-PCS; 2020-10-26)
PROC: 5A1D70Z Performance of Urinary Filtration, Intermittent, Less than 6 Hours Per Day (ICD-10-PCS; 2020-10-26)
PROC: 5A1D70Z Performance of Urinary Filtration, Intermittent, Less than 6 Hours Per Day (ICD-10-PCS; 2020-10-28)
PROC: 5A1D70Z Performance of Urinary Filtration, Intermittent, Less than 6 Hours Per Day (ICD-10-PCS; 2020-10-29)
PROC: 02HV33Z Insertion of Infusion Device into Superior Vena Cava, Percutaneous Approach (ICD-10-PCS; 2020-10-30)
PROC: B548ZZA Ultrasonography of Superior Vena Cava, Guidance (ICD-10-PCS; 2020-10-30)
PROC: 5A1D70Z Performance of Urinary Filtration, Intermittent, Less than 6 Hours Per Day (ICD-10-PCS; 2020-10-30)
PROC: 06PYX3Z Removal of Infusion Device from Lower Vein, External Approach (ICD-10-PCS; 2020-10-31)
PROC: 02HV33Z Insertion of Infusion Device into Superior Vena Cava, Percutaneous Approach (ICD-10-PCS; 2020-10-31)
PROC: 5A1D70Z Performance of Urinary Filtration, Intermittent, Less than 6 Hours Per Day (ICD-10-PCS; 2020-11-02)
DX: A41.9 Sepsis, unspecified organism (principal); R65.21 Severe sepsis with septic shock; J96.21 Acute and chronic respiratory failure with hypoxia; J69.0 Pneumonitis due to inhalation of food and vomit; G93.41 Metabolic encephalopathy; N17.9 Acute kidney failure, unspecified; E87.2 Acidosis; N39.0 Urinary tract infection, site not specified; Z16.12 Extended spectrum beta lactamase (ESBL) resistance; I12.9 Hypertensive chronic kidney disease with stage 1 through stage 4 chronic kidney disease, or unspecified chronic kidney disease; N18.30 Chronic kidney disease, stage 3 unspecified; K74.60 Unspecified cirrhosis of liver; D64.9 Anemia, unspecified; E11.22 Type 2 diabetes mellitus with diabetic chronic kidney disease; E66.01 Morbid (severe) obesity due to excess calories; D69.6 Thrombocytopenia, unspecified; Z20.822 Contact with and (suspected) exposure to COVID-19; K70.9 Alcoholic liver disease, unspecified; E87.5 Hyperkalemia; Z66 Do not resuscitate; E03.9 Hypothyroidism, unspecified; Z79.899 Other long term (current) drug therapy; Z86.19 Personal history of other infectious and parasitic diseases; Z90.49 Acquired absence of other specified parts of digestive tract; Z86.16 Personal history of COVID-19
CPT/HCPCS: 36415; 36600; 70450-TC; 71045; 76376; 76700-TC; 80048; 80053; 80074; 81000; 82140; 82150; 82803-TC; 82962; 83605; 83690; 83735; 83880; 84100; 84484; 85025; 85379; 85384; 85610-TC; 85730-TC; 86480; 86886; 86900; 86901; 86920; 87040-TC; 87070-TC; 87081; 87086; 87205-TC; 90935; 90937; 93005; 94002; 94003; 94640; 96365; 96367; 96375; 99291; C9113; J0610; J0692; J1450; J1644; J1815; J2060; J2185; J2270; J2543; J2704; J3370; J3480; J3490; J7040; J7050; J7060; J7612; P9021; P9046